=== PATIENT | male | born 1940 | race Caucasian/White ===

== ENCOUNTER 2022-11-29 12:12 | Outpatient (CLI) | payer MEDICARE, OTHER, SELFPAY | END 2022-11-29 12:13 | disposition home or self-care (01) | LOC: AMB 11-30 02:10 | PROVIDERS: Visit Provider Family Medicine | DX: R53.1 Weakness (principal); R41.82 Altered mental status, unspecified | CPT/HCPCS: A0425; A0427 ==

== ENCOUNTER 2024-04-25 10:39 | Outpatient (CLI) | payer MEDICARE, OTHER, SELFPAY ==
--- OUTSIDE RECORDS SUMMARY | 2024-05-10 22:40 | XMS_ITS | Clinical Summary ---
Author Organization [employer] [facility] Address [place], [place] [address] Care Team Providers Care Size Marker Name Role Phone None Primary Care Provider Unavailabl e Allergies Active Allergy Reactions Criticality Noted Date Comments Sulfamethoxazole-Trimethop rim *Unknown - Follow up needed 09/26/2007 Medications Medication Sig Dispensed Refills Start Date End Date Status warfarin (COUMADIN) 4 mg tablet 6 mg ( 4 mg x 1.5 tabs) every Sunday, Sun, Sun then 4 mg ( 4 mg x 1 tab ) all other days of the weekAdjust as directed by INR clinic. 12/11/2023 Active traMADoL (ULTRAM) 50 mg tablet 01/21/2024 Active tamsulosin (FLOMAX) 0.4 mg capsule Take 2 Capsules by mouth once daily. 12/18/2022 Active pregabalin (LYRICA) 25 mg capsule Take 25 mg by mouth two times daily. 04/09/2023 Active pregabalin (LYRICA) 100 mg capsule Take 100 mg by mouth two times daily. 05/16/2023 Active pantoprazole (PROTONIX) 40 mg delayed-release tablet Take 1 Tablet by mouth once daily. 01/17/2024 Active losartan (COZAAR) 25 mg tablet Take 25 mg by mouth once daily. Active furosemide (LASIX) 20 mg tablet TAKE 1 TABLET BY MOUTH ONCE DAILY NEEDED FOR LEG SWELLING. Active dilTIAZem (DILACOR XR; DILTIA XT) 120 mg Extended-Release capsule Take 1 Capsule by mouth once daily. 04/09/2023 Active citalopram (CELEXA) 20 mg tablet TAKE 1/2 (ONE-HALF) TABLET BY MOUTH THREE TIMES A WEEK 12/11/2023 Active buPROPion (WELLBUTRIN XL) 150 mg Extended-Release tablet 1 tab every am 01/22/2024 Active atorvastatin (LIPITOR) 80 mg tablet Take 80 mg by mouth once daily. Active Social History Tobacco Use Types Packs/Day Years Used Date Smoking Tobacco: Former Cigarettes 1 58 1 958 - 2016 Passive Smoke Exposure: Never Smokeless Tobacco: Never Tobacco Cessation:Counseling Given: Not Answered PHQ-2 Answer Date Recorded PHQ-2 TOTAL SCORE 0 01/31/2024 Social Connections Answer Date Recorded Frequency of Communication with Friends and Fami ly Not on file 01/31/2024 Sex and Gender Information Value Date Recorded Sex Assigned at Not on file Gender Identity Not on file Sexual Orientation Not on file Obstetrics History Last Filed Vital Signs Vital Sign Reading Time Taken Comments Blood Pressure 144/80 01/31/2024 10:18 AM CDT Pulse 84 01/31/2024 10:18 AM CDT Temperature - - Respiratory Rate - - Oxygen Saturation - - Inhaled Oxygen Concentration - - Weight - - Height 188 cm (6' 2) 01/31/2024 10:18 AM CDT Body Mass Index - - Plan of Treatment Health Maintenance Due Date Last Done Comments Tdap 1952 BMI (ht and wt on same day) for age 18+ 1959 Tetanus booster 1961 Zoster (shingles) series for age 50+ (1 of 2) 1991 Medicare Wellness for age 65+ 2006 Pneumococcal series for age 65+ (1 of 1 - PCV) 2006 COVID-19 vaccine series (3 - 2022- season) 2023 01/26/2021, 01/05/2021 Influenza for age 65+ 07/20/2024 Depression screening for age 12+ 01/30/2025 01/31/20 24 Care Teams Size Marker Relationship Specialty Start Date End Date None . PCP - General 12/24/08
--- OUTSIDE RECORDS SUMMARY | 2024-05-10 22:41 | XMS_ITS | Continuity of Care Document ---
Author Organization [facility] Address [address] [address] [place] [address] Phone Care Team Providers Care Office Director Name Role Phone Camryn Licea Unavailabl e Procedures Procedure Date Subsqt Hosp-da E&m Minr Compl 1 Ugi Endo; W/endo Ultrasound Ex 21 Init Hosp-da E&m Mod Severity 1 Subsqt Hosp-da E&m Minr Compl 1 Subsqt Hosp-da E&m Minr Compl 2 Init Hosp-da E&m Mod Severity 2 Ugi Endo; Dx W/wo Collec Specm 12 Advance Directives Directive Yes / No Effective Date File Name No Information Encounters Encounter Description Practice Location Reason(s) For Visit Diagnoses Date Provider Providers Copied on Encounter Subsqt Hosp-da E&m Minr Compl [facility], [address] [address], [place], [place], [address], [place] tel:[phone] [facility] No Information 1 Princess Cowan. [address] [facility] [address], [place], [place], [address], [place]. tel:[phone] Referring Provider: Camryn Ha, [address], [place], [address] . tel:[phone] [facility], [address] [address], [place], [place], [address], [place] tel:[phone] [facility] No Information 1 Giovana Villalta. [address], [place], [place], [address], [place]. tel:[phone] Referring Provider: Pawan Akhtar MD, [address], [place], [address] . tel:[phone] Init Hosp-da E&m Mod Severity [facility], [address] [address], [place], [place], [address], [place] tel:[phone] [facility] No Information 1 Dakota Jett. [address], [facility] [address], [place], [place], [address], [place]. tel:[phone] Referring Provider: Zach Cruz MD, [address] [facility] [address] Internal Medicine, [place], [address]. tel:[phone] Subsqt Hosp-da E&m Minr Compl [facility], [address] [address], [place], [place], [address], [place] tel:[phone] [place] [address] No Information 2 No Information Init Hosp-da E&m Mod Severity [facility], [address] [address], [place], [place], [address], [place] tel:[phone] [facility] No Information 2 Edward De La O. [address], [facility] [address], [place], [place], [address], [place]. tel:[phone] Referring Provider: Tomas Khan MD R, [address] [place] [address], [address]. tel:[phone] Family History Family Member Type Diagnosis Age At Onset No Information Payers Payer name Insurance type Covered constitution party ID Authordamian johnson(s) Medicare NGS MB [id number] [facility] I nsurance Com CI [id number] Social History Type Description Quantity Date Captured Comments Sex Male Smoking Status No Information Chief Complaint And Reason For Visit No Information Reason For Referral Reason For Referral No Information History Of Present Illness Encounter Date Complaint History Of Prese nt Illness No Information Functional Status Date Functional Assessmen t No Information Instructions Date Instruction Additional Infor mation No Information Assessments Type Assessment Date No Information Patient Care Teams Name Effective Dates (start - stop) Status Members No Information
--- OUTSIDE RECORDS SUMMARY | 2024-05-10 22:41 | XMS_ITS | Continuity of Care Document ---
Author Organization [facility] Address [address] [place] [address] Phone Care Team Providers Care Flow Floor Attendant Name Role Phone Stacey MELTON, Yareli Unavailable Unavailable Allergies, Adverse Reactions, Alerts Substance Reaction Status Criticality No Known Allergies Active No Inform ation Medications Medication Instructions Dosage Effective Dates (start - stop) Status Comments tramadol 50 mg tablet take 1 tablet by oral route 4 times every day as needed 1 tablet - Active chronic pain. dose increase warfarin 4 mg tablet take 1 tablet by oral route every day 4 MG - Active tamsulosin 0.4 mg capsule take 2 capsule by oral route every day 1/2 hour following the same meal each day 0.8 MG - Active pantoprazole 40 mg tablet,delayed release take 2 tablet by oral route every day 80 MG - Active naproxen sodium 220 mg tablet take 2 tablet by oral route every 12 hours as needed 440 MG - Active melatonin 10 mg capsule - Active losartan 25 mg tablet take 1 tablet by oral route every day 25 MG - Active furosemide 20 mg tablet take 1 tablet by oral route 2 times every day 20 MG - Active ferrous sulfate 325 mg (65 mg iron) tablet take 1 tablet by oral route every day 325 MG - Active docusate sodium 100 mg capsule take 1 capsule by oral route 2 times every day as needed 100 MG - Active diltiazem ER (XR/XT) 120 mg capsule,extended release 24 hr, controlled take 1 capsule by oral route every day 120 MG - Active cilostazol 100 mg tablet take 1 tablet by oral route 2 times every day 1/2 hour before or 2 hours after breakfast and dinner 100 MG - Active bupropion HCl XL 150 mg 24 hr tablet, extended release take 1 tablet by oral route every day 150 MG - Active baclofen 10 mg tablet take 1 tablet by oral route every day 10 MG - Active Procedures Procedure Date PHONE E/M PHYS/QHP 21-30 MIN Est Pt Eval Telehealth No Show Visit Fee PHONE E/M PHYS/QHP 21-30 MIN Est Pt Eval Est Pt Eval Moderate No Show Visit Fee Psychiatric Diagnostic Evaluation Teleph one Only New Pt Eval Moderate Toxicology Test Group B Advance Directives Directive Yes / No Effective Date File Name No Information Encounters Encounter Description Practice Location Reason(s) For Visit Diagnoses Date Provider Providers Copied on Encounter [facility], [address], [place], [address], [place] tel:[phone] [facility] No Information 4 Stacey Downs. [address], [place], [address], [place]. tel:[phone] PHONE E/M PHYS/QHP 21-30 MIN Eliazar [facility], [address], [place], [place], [address], [place] tel:[phone] [facility] 7390 foot pain (chief complaint) Chief Complaint 2 (chief complaint) Body mass index (BMI) 28.0-28.9, adultPain in left footHemiparesis following cerebral infarction affecting left non-dominant side 4 Colt Wadsworth. [address], [address], [place], [address], [place]. tel:[phone] Referring Provider: Rickey Ardon, [address], [place], [address] . tel:[phone] Est Pt Eval Telehealth EliazarANA LAURA zambrano, [address], [place], [place], [address], [place] tel:[phone] Ifeoma Perea [facility] 7390 foot pain (chief complaint) Pain in left footHemiparesis following cerebral infarction affecting left non-dominant side 4 Colt Wadsworth. [address], [address], [place], [address], [place]. tel:[phone] Referring Provider: iRckey Ardon, [address], [place], [address] . tel:[phone] ANA LAURA Perea, [address], [place], [place], [address], [place] tel:[phone] [facility] No Information 4 Melum Violette. [address], [address], [place], [address], [place]. tel:[phone] Referring Provider: REFERRAL YADI OCHOA. PHONE E/M PHYS/QHP 21-30 MIN ANA LAURA Perea, [address], [place], [place], [address], [place] tel:[phone] [facility] left foot pain (chief complaint) Hemiparesis following cerebral infarction affecting left non-dominant sidePain in left footBody mass index (BMI) 28.0-28.9, adult Apr-3 4 Melum Violette. [address], [address], [place], [address], [place]. tel:[phone] Referring Provider: Rickey Ardon, [address], [place], [address] . tel:[phone] Est Pt Eval Eliazar [facility], [address], [place], [place], [address], [place] tel:[phone] [facility] left foot pain (chief complaint) Hemiparesis following cerebral infarction affecting left non-dominant sidePain in left footBody mass index (BMI) 28.0-28.9, adult Feb- 4 Marck Oakes. [address], [address], [place], [address], [place]. tel:[phone] Referring Provider: Rickey Ardon, [address], [place], [address] . tel:[phone] Est Pt Eval Moderate Eliazar, [facility], [address], [place], [place], [address], [place] tel:[phone] [facility] left foot pain (chief complaint) Elevated blood-pressure reading, w/o diagnosis of htnPain in left footHemiparesis following cerebral infarction affecting left non-dominant side Fe 4 Ileana Monroe. [address], [place], [address], [place]. tel:[phone] Referring Provider: Rickey Ardon, [address], [place], [address] . tel:[phone] ANA LAURA Perea, [address], [place], [place], [address], [place] tel:[phone] [facility] No Information 4 Tay Finley. [address], [place], [address], [place]. tel:[phone] Referring Provider: REFERRAL SELF, [place]. Psychiatric Diagnostic Evaluation Telephone Only MUNDO Perea, [address], [place], [place], [address], [place] tel:[phone] [facility] Pain disorder with related psychological factors 4 Pan Rincon. [address], [place], [place], [address], [place]. tel:[phone] Referring Provider: Rickey Ardon, [address], [facility] [place], [address] . tel:[phone] New Pt Eval Moderate Eliazar, [facility], [address], [place], [place], [address], [place] tel:[phone] [facility] foot pain (chief complaint) Pain in left footHemiparesis following cerebral infarction affecting left non-dominant side 4 [place] Yareli. [address], [place], [address], [place]. tel:[phone] Referring Provider: Rickey Ardon, [address], [place], [address] . tel:[phone] Eliazar, [facility], [address], [place], [place], [address], [place] tel:[phone] Eliazar [facility] No Information 4 [place] Yareli. [address], [place], [address], [place]. tel:[phone] Referring Provider: Rickey Ardon, [address], [place], [address] . tel:[phone] Family History Family Member Type Diagnosis Age At Onset No Information Payers Payer name Insurance type Covered green party ID Authoriza titaina(s) No Information Social History Type Description Quantity Date Captured Comments Alcohol Use Details Unknown Caffeine Use Details Unknown Tobacco Use Status No Information Smoking Status No Information Sex Male Chief Complaint And Reason For Visit No Information Reason For Referral Reason For Referral No Information Plan Of Treatment Date Type Action Status Goal Lifestyle educat ion regarding diet completed Referral Ordered: Referrals: Orthopedic Surgery. Location: [facility]. Consult ordered Referral Ordered: Behavioral Health (related to Pain in left foot) ordered Referral Referred To: Physical Therapy Ordered: Referrals: Physical Therapy. Consult ordered Referral Ordered: Referrals: Behavioral Health. Consult ordered Appointment Raffy Montgomery BOOKED Future Order: Radiology Order [facility] Image Order (Misc), Ordered on: Ordered History Of Present Illness Encounter Date Complaint History Of Prese nt Illness foot pain The primary pain involves the foot. The pain has been stable . Chief Complaint 2 The pain is lo cated in the back, stomach. The pain has been worsening . The following activities make the pain worse: lying down and sitting. Additional information: Patient Had a fall night and went to [facility] by ambulance. They did head, back and stomach CT scans. Also got back, stomach, and pelvic X-rays done that all came back clear. foot pain The pain is loca dmitri in the left foot. Pain intensity is currently 0/10.The pain is described as sharp. The following activities make the pain worse: walking. The following activities make the pain better: sitting. left foot pain Severity level i s 6. Location: left foot. The pain is aching, sharp and numbness. The pain is aggravated by walking and standing. There are no relieving factors. left foot pain (comments) Commen ts: Patient reports he's scheduled to get a stress test done tomorrow 03/19/24 with his web solutions architect at [facility]. Studies Reviewed X-RAY - Foot pe rformed on 02/25/2024. Interpretation: see detail, Result: Mild irregularity and lucency involving the distal fifth metatarsal questionable for underlying fracture Recommend close clinical correlation and consider follow-up with CT or MRI for further evaluation. Small plantar calcaneal bone spur. left foot pain Location: left f oot. The pain is aching, sharp, tingling and numbness. The pain is aggravated by walking and standing. left foot pain Location: left f oot. The pain is aching, burning, sharp and shooting. The pain is aggravated by movement, walking and standing. The pain is relieved by nothing. foot pain (comments) Comments: Norma sana reports previously receiving care from [facility]. Requested medical records from [facility]. 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 The pain reportedly began shortly after his stroke. Patient's son reports he got his father various devices for pain relief, but denies it providing relief. Patient's reports that the patient got some injection in his back at [facility] without pain relief. They do not recall any details about the injection.Patient's reports the pain started following his stroke. Patient indicated the pain is in his left ankle and foot. His reported that rubbing the side of his foot aggravates the pain. The patient's son reports his foot will swell. Patient's reports that when the patient walks he will drag his medial big toe along the floor. Patient reports tingling and burning in his left foot. Studies Reviewed MRI, lumbar spi ne, w/o contrast performed on 12/29/2022. Result: Suboptimal but diagnostic MRI of the lumbar spine with motion artifact on axial images and significant findings as follows:1 Moderately severe bilateral foraminal stenosis at L5-S1 with 4-5 mm lateral disc protrusions and left greater than right far lateral L5 neural impingement.2. 4-5 mm degenerative spondylolisthesis at L4-5 with moderate bilateral facet arthropathy and no stenosis or impingement.3. Diffuse lumbar disc degeneration with mild retrolisthesis at L2-3 and L1-2.4. Old benign-appearing compression fractures at L2 and L1. Question osteoporosis.5. Heterogeneous increased signal intensity within the spleen consistent with diffuse granulomatous disease. Splenic lymphangioma is also a consideration. foot pain Location: left f oot. The pain is aggravated by movement, walking and standing. The pain is relieved by OTC medicines (naproxen sodium) and rest. Functional Status Date Functional Assessmen t No Information Instructions Date Instruction Additional Infor catherine - Follow up with jeffrey hernandez physician for INR check Related to Hemiparesis following cerebral infarction affecting left non-dominant side - Nice to talk with you today!- Keep lumbar sympathetic nerve block as scheduled 05/12/24*Can call [phone] to check for cancellations and try to get an earlier appointment*Hold warfarin for 5 days prior to procedure and bridge with lovenox (talk to web solutions architect or primary care doctor about this once the injection is scheduled.) *Consider repeating in a series of 3 - Consider spinal cord stimulator trial in the future*Find more information at [employer] - Stop tramadol- Prescribed Hydrocodone 5mg-325, max of 4x/day for 7 days- Follow up with Violette WADDELL in 1 month, in CLINIC Related to Pain in left foot Lifestyle education regarding di et Related to Body mass index [BMI] 28.0-28.9, adult - Follow up with jeffrey hernandez physician for INR check Related to Hemiparesis following cerebral infarction affecting left non-dominant side - Nice to talk with you today!- Keep lumbar sympathetic nerve block as scheduled 05/12/24*Can call [phone] to check for cancellations and try to get an earlier appointment*Hold warfarin for 5 days prior to procedure and bridge with lovenox (talk to web solutions architect or primary care doctor about this once the injection is scheduled.) *Consider repeating in a series of 3 - Consider spinal cord stimulator trial in the future*Find more information at [employer] - Refill and increase Tramadol 50mg 4x/day, for fill today 04/24/24- Follow up with Violette WADDELL in 1 month, in CLINIC Related to Pain in left foot - Follow up with jeffrey hernandez physician for INR check Related to Hemiparesis following cerebral infarction affecting left non-dominant side - Nice to talk with you today!- Sent referral to [facility] in [place]*They will call to schedule, if you don't hear back in a few days call [phone]- Ordered MRI of left foot at [facility] will call to schedule, if you don't hear back in a few days call [phone]- Keep lumbar sympathetic nerve block as scheduled 04/09*Can call [phone] to check for cancellations and try to get an earlier appointment*Hold warfarin for 5 days prior to procedure and bridge with lovenox (talk to web solutions architect or primary care doctor about this once the injection is scheduled.) *Consider repeating in a series of 3 - Consider spinal cord stimulator trial in the future*Find more information at [employer] - Refill and increase Tramadol 50mg 4x/day, for fill tomorrow 03/19- Follow up with Mee Bates for medical cannabis certification, telehealth okay - Follow up with Violette WADDELL in 1 month, in CLINIC 04/09 before your nerve block Related to Pain in left foot Giving encouragement to exercise Related to Body mass index [BMI] 28.0-28.9, adult - Follow up with jeffrey hernandez physician for INR check Related to Hemiparesis following cerebral infarction affecting left non-dominant side - Nice to meet you! I'm sorry you're in so much pain.- Ordered lumbar sympathetic nerve block *Eliazar will call to schedule once insurance approves, if you don't hear back in a few days call [phone] *Hold warfarin for 5 days prior to procedure and bridge with lovenox (talk to web solutions architect or primary care doctor about this once the injection is scheduled.) *Consider repeating a series of 3 - Consider spinal cord stimulator trial in the future*Find more information at [employer] - Refill and increase Tramadol 50mg 3x/day, for fill today 02/18- Follow up with Mee Bates for medical cannabis certification, telehealth okay - Follow up with advanced practice provider in 1 month, telehealth okay Related to Pain in left foot Giving encouragement to exercise Related to Body mass index [BMI] 28.0-28.9, adult Follow up with miguel angel bocanegra physician for INR check Related to Hemiparesis following cerebral infarction affecting left non-dominant side Medications: -Refill ed and increased Butrans patch 10mcg for fill 12/26/23 to start 12/28/23 -Follow up with pharmacist at marijuana store for medical marijuana formula option -Keep prescribed Tramadol in a safe place- Consider lumbar sympathetic nerve block if patient able to bridge with lovenox injection for 5 daysFollow-up: -Follow up in 4 weeks with a [employer] or Nurse Practitioner Related to Pain in left foot Giving encouragement to exercise Related to Elevated blood-pressure reading, w/o diagnosis of htn Physical Therapy/[facility]/Other Referring: -Physical therapy to be ordered apart of opioid agreement -Behavioral Health to be ordered apart of opioid agreementMedications: -Butrans patch 5mcgFollow-up: -Follow up in 4-6 weeks with a [employer] or Nurse Practitioner -X[employer]IA requested from [email or web address]. Related to Pain in left foot Assessments Type Assessment Date No Information Patient Care Teams Name Effective Dates (start - stop) Status Members No Information
--- OUTSIDE RECORDS SUMMARY | 2024-05-10 22:41 | XMS_ITS | Encounter Summary ---
Author Organization [facility] Address [address] [place] [address]. [place] [address] Care Team Providers Care Application Engineer Name Role Phone [facility] Unavailable [phone] Jairon Sofia MD Unavailable [phone] Lesvia Aguilar RN Unavailable Unavailable ElistMandi love MD Unavailable [phone] Mandi Mar MD Primary Care Provider [phone] Neela Baum MD Unavailable [phone] Mariza Green NP Unavailable [phone] Gael Sullivan MD Unavailable [phone] Gael Sullivan MD Unavailable [phone] Reason for Visit * Reason Onset Date Comments Anticoagulation 05/08/2024 PT SPOUSE IS BLESSING LING BACK, MISSED CALL WITH INR NURSE Encounter Details Date Type Department Care Team (Late st Contact Info) Description 05/08/2024 [facility] [address] [place] [address] [place] [address] [place] [address] Anticoagulation (PT SPOUSE IS CALLING BACK, MISSED CALL WITH INR NURSE) Social History Tobacco Use Types Packs/Day Years Used Date Smoking Tobacco: Former Cigarettes 0.2 35 Smokeless Tobacco: Never Comments:quit in may 2017 Alcohol Use Standard Drinks/Week Comments Yes 1.7 (1 standard drink = 0.6 oz p ure alcohol) 2 drinks at night bindu PHQ-2 Answer Date Recorded PHQ-2 Score 0 09/10/2023 Adolescent Education Answer Date Record ed Getting School Help Needed Not on file 08/16 Food Insecurity Answer Date Recorded Within the past 12 months, d id you worry that your food would run out before you got money to buy more? No 08/20/2023 Within the past 12 months, d id the food you bought just not last and you didn? t have money to get more? No 08/20/2023 Housing Stability Answer Date Recorded Do you have housing? (Ivonne g is defined as stable permanent housing and does not include staying ouside in a car, in a tent, in an abandoned building, in an overnight halfway, or couch-surfing.) Yes 08/20/2023 Are you worried about losing your housing? No 08/20/2023 Financial Resource Strain Answer Date R ecorded Within the past 12 months, h ave you or your family members you live with been unable to get utilities (heat, electricity) when it was really needed? No 08/20/2023 Transportation Needs Answer Date Record ed Within the past 12 months, h as lack of transportation kept you from medical appointments, getting your medicines, non-medical meetings or appointments, work, or from getting things that you need? No 08/20/2023 Interpersonal Safety Answer Date Record ed Do you feel physically and e motionally safe where you currently live? Yes 09/10/2023 Within the past 12 months, h ave you been hit, slapped, kicked or otherwise physically hurt by someone? No 09/10/2023 Within the past 12 months, h ave you been humiliated or emotionally abused in other ways by your partner or ex-partner? No 09/10/2023 Sex and Gender Information Value Date Recorded Sex Assigned at Not on file Gender Identity Not on file Sexual Orientation Not on file documented as of this encounter Miscellaneous Notes * Telephone Encounter - Kaur Jean-Baptiste RN - 05/08/2024 12:33 PM CDT Noted. See 04/08/24 TE and 05/06/24 anticoagulation encounter for further detail. Kaur Jean-Baptiste RN [facility]. * Telephone Encounter - Magali Wang - 05/08/2024 11:02 AM CDT General Call Reason for Call: PT SPOUSE IS RETURNING CALL TO INR NURSE What are your questions or concerns: SEE ABOVE Date of last appointment with provider: UNKNOWN Okay to leave a detailed message?: Yes at Home number on file [phone] (home) documented in this encounter Plan of Treatment Upcoming Encounters Date Type Department Care Team (Late st Contact Info) Description 06/09/2024 10:00 AM CDT Office Visit [address] [address] [place] [address] [place] [address] documented as of this encounter Visit Diagnoses Not on filedocumented in this encounter Additional Health Concerns Assessment Noted Time PHQ-9 Depression Total Score: 3 09/10/20 23 9:51 AM CDT documented as of this encounter Care Teams Application Engineer Relationship Specialty [place] [address] [place] [address] PCP - General Family Medicine 03/29/22 [facility] ([place] 05/29/19 Jairon Sofia MD [address] [place] [address] Urology 09/09/19 Lesvia Aguilar, RN Personal Advocate & Liaison (PAL) Family Medicine 06/20/21 [place] [address] [place] [address] Assigned PCP 01/01/22 [place] [address] [facility] [address] [place] [address] Assigned Musculoskeletal Provider 03/24/23 [place] [address] [place] [address] Nurse Practitioner Nurse Practitioner 04/09/23 [place] [address] [facility] [address] [place] [address] Cardiovascular Disease 12/21/23 Gael Sullivan MD [address] [facility] [address] [place] [address] Assigned Heart and Vascular Provider 03/11/24 documented as of this encounter
--- OUTSIDE RECORDS SUMMARY | 2024-05-10 22:41 | XMS_ITS | Referral Summary ---
Author Organization [facility] [place] [address] Care Team Providers Care Siebel Solution Architect Name Role Phone [facility] Unavailable Jairon Sofia MD Unavailable [phone] Lesvia Aguilar RN Unavailable Unavailable Mandi Mar MD Unavailable [phone] Mandi Mar MD Primary Care Provider [phone] Neela Baum MD Unavailable [phone] Mariza Green NP Unavailable [phone] Gael Sullivan MD Unavailable [phone] Gael Sullivan MD Unavailable [phone] Encounters Date Type Department Care Team Description 05/09/2024 Telephone [facility] [address] [place] [address] Mandi Mar MD Back Pain 05/08/2024 Telephone [facility] [address] [place] [address] Mandi Mar MD Anticoagulation (PT SPOUSE IS CALLING BACK, MISSED CALL WITH INR NURSE) 05/08/2024 Telephone [facility] [address] [place] [address] Mandi Mar MD Back Pain 05/06/2024 Telephone [facility] [address] [place] [address] Mandi Mar MD Anticoagulation 05/06/2024 Anticoagulation Therapy Visit [facility] Anticoagulation [address] [phone] Isa Osullivan RN Atrial fibrillation, unspecified type (H) (Primary Dx); 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 with INR goal of 2.0-3.0; 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), unspecified mechanism (H) 05/06/2024 Orders Only [facility] [address] [place] [phone] Mandi Mar MD 04/29/2024 Anticoagulation Therapy Visit [facility] [address] [place] [phone] José Miguel Ponce RN Atrial fibrillation, unspecified type (H) (Primary Dx); 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 with INR goal of 2.0-3.0; 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), unspecified mechanism (H) 04/29/2024 Documentation Only [facility] [address] [place] [phone] Karen Ferreira RN Anticoagulation 04/29/2024 Orders Only [facility] [address] [place] [phone] Mandi Mar MD 04/28/2024 Documentation Only [facility] [address] [place] [phone] Shawna Bunn RN Atrial fibrillation, unspecified type (H) (Primary Dx); residential current use of 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 with INR goal of 2.0-3.0; 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), unspecified mechanism (H) 04/28/2024 Telephone [facility] [address] [place] [phone] Mandi Mar MD Hospital F/U 04/27/2024 Travel 04/27/2024 5:17 PM CDT - 04/27/2024 7:49 PM CDT Emergency [facility] Emergency Dept [address] [place] [address] Ady Tomlinson MD Fall at home, initial encounter; Musculoskeletal pain; Closed compression fracture of body of L1 vertebra (H) Discharge Disposition: Home or Self Care 04/25/2024 Telephone [facility] [address] [place] [phone] Karen Ferreira RN Anticoagulation 04/25/2024 Travel 04/25/2024 11:18 AM CDT - 04/25/2024 2:00 PM CDT Emergency [facility] Emergency Dept [address] [place] [address] Adrian Phillips MD Fall, initial encounter; Contusion of right hip, initial encounter; Contusion of scalp, initial encounter Discharge Disposition: Hospice/Home 04/22/2024 Anticoagulation Therapy Visit [facility] [address] [place] [phone] Kaur Jean-Baptiste RN Atrial fibrillation, unspecified type (H) (Primary Dx); residential current use of 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 with INR goal of 2.0-3.0; 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), unspecified mechanism (H) 04/22/2024 Orders Only [facility] [address] [place] [phone] Mandi Mar MD 04/11/2024 Refill [facility] [address] [place] [phone] Mandi Mar MD Refill Request (atorvastatin (LIPITOR) 80 MG tablet) 04/08/2024 Refill [facility] [address] [phone] Mandi Mar MD Refill Request (baclofen (LIORESAL) 10 MG tablet) 04/08/2024 Telephone [facility] [address] [place] [phone] José Miguel Ponce RN Anticoagulation Procedure Plan 04/08/2024 Anticoagulation Therapy Visit [facility] [address] [phone] José Miguel Ponce RN Atrial fibrillation, unspecified type (H) (Primary Dx); residential current use of 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 with INR goal of 2.0-3.0; 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), unspecified mechanism (H) 04/08/2024 Orders Only [facility] [address] [phone] Mandi Mar MD 03/30/2024 Travel 03/30/2024 3:57 PM CDT - 03/30/2024 11:59 PM CDT Hospital Encounter [facility] [address] [place] [phone] Violette Acharya PA-C Pain in left foot Discharge Disposition: Home or Self Care 03/27/2024 Travel 03/27/2024 9:35 AM CDT - 03/27/2024 10:22 AM CDT Hospital Encounter [facility] [address] [place] [phone] Gael Sullivan MD Palpitations; S/P CABG (coronary artery bypass graft); COATS (dyspnea on exertion); PAD (peripheral artery disease) (H24) Discharge Disposition: Home or Self Care 03/27/2024 10:23 AM CDT - 03/27/2024 11:59 PM CDT Hospital Encounter [address] [phone] Gael Sullivan MD S/P CABG (coronary artery bypass graft); COATS (dyspnea on exertion) Discharge Disposition: Home or Self Care 03/19/2024 Travel 03/19/2024 10:32 AM CDT Hospital Encounter [facility] [address] [place] [phone] Gael Sullivan MD Discharge Disposition: Home or Self Care 03/19/2024 10:33 AM CDT - 03/19/2024 11:59 PM CDT Hospital Encounter [facility] [address] [place] [address] Gael Sullivan MD Discharge Disposition: Home or Self Care 03/19/2024 10:32 AM CDT Hospital Encounter [facility] [address] [place] [address] Gael Sullivan MD Discharge Disposition: Home or Self Care 03/19/2024 10:30 AM CDT - 03/19/2024 10:31 AM CDT Hospital Encounter [facility] [address] [place] [phone] Gael Sullivan MD S/P CABG (coronary artery bypass graft); COATS (dyspnea on exertion) Discharge Disposition: Home or Self Care 03/18/2024 Anticoagulation Therapy Visit [facility] [address] [place] [phone] Chary Camp RN Atrial fibrillation, unspecified type (H) (Primary Dx); 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 with INR goal of 2.0-3.0; 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), unspecified mechanism (H) 03/18/2024 Orders Only [facility] [address] [place] [phone] Mandi Mar MD 03/10/2024 Telephone [facility] [address] [place] [phone] Gael Sullivan MD Appointment (Annual ) 03/06/2024 Travel 03/06/2024 1:15 PM CDT Office Visit [facility] [address] [facility] [address] [place] [phone] Gael Sullivan MD Palpitations (Primary Dx); S/P CABG (coronary artery bypass graft); COATS (dyspnea on exertion); PAD (peripheral artery disease) (H24) 02/26/2024 Anticoagulation Therapy Visit [facility] [address] [place] [phone] Kaur Jean-Baptiste RN Atrial fibrillation, unspecified type (H) (Primary Dx); residential current use of 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 with INR goal of 2.0-3.0; 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), unspecified mechanism (H) 02/26/2024 Orders Only [facility] [address] [place] [phone] Mandi Mar MD from Last 3 Months Allergies Active Allergy Reactions Criticality Noted Date Comments Bactrim Unknown 09/26/2007 Medications Medication Sig Dispensed Refills Start Date End Date Status Thiamine HCl (VITAMIN B-1) 250 MG TABSIndications:Cer ebrovascular accident (CVA), unspecified mechanism (H) Take 1 each by mouth daily 30 tablet 7 Active Multiple Vitamins-Minerals (MULTIVITAMIN ADULT PO) Take 1 tablet by mouth daily Active order for DMEIndications:Lymp hedema 1: Gradient Compression Wraps; 2: cast Boots; 3; BLE 20-30 mm Hg compression stockings; knee high; 4: Velcro compression garments BLE's 1 each 9 Active Melatonin 10 MG TABS tablet Take 10 mg by mouth At Bedtime Active tamsulosin (FLOMAX) 0.4 MG capsuleIndications: Enlarged prostate Take 1 capsule by mouth once daily 90 capsule 2 3 Active diltiazem ER COATED BEADS (CARDIZEM CD/CARTIA XT) 120 MG 24 hr capsuleIndications: Atrial fibrillation, unspecified type (H) Take 1 capsule (120 mg) by mouth daily 90 capsule 3 3 Active docusate sodium (COLACE) 100 MG capsuleIndications: Anemia, unspecified type Take 1 capsule (100 mg) by mouth 2 times daily 180 capsule 3 3 Active ferrous sulfate (FEROSUL) 325 (65 Fe) MG tabletIndications:I ang[place] deficiency Take 1 tablet (325 mg) by mouth daily (with breakfast) 90 tablet 3 Active furosemide (LASIX) 20 MG tabletIndications:E ssential hypertension Take 1 tablet (20 mg) by mouth daily TAKE 1 TABLET BY MOUTH ONCE DAILY NEEDED FOR LEG SWELLING 90 tablet 3 3 Active losartan (COZAAR) 25 MG tabletIndications:E ssential hypertension Take 1 tablet (25 mg) by mouth daily 90 tablet 3 3 Active pregabalin (LYRICA) 50 MG capsuleIndications: Mononeuropathy Take 1 capsule (50 mg) by mouth 2 times daily 180 capsule 1 3 Active citalopram (CELEXA) 20 MG tabletIndications:M oderate major depression (H) TAKE 1/2 (ONE-HALF) TABLET BY MOUTH THREE TIMES A WEEK 18 tablet 1 4 Active warfarin ANTICOAGULANT (COUMADIN) 4 MG tabletIndications:A trial fibrillation, unspecified type (H) 6 mg ( 4 mg x 1.5 tabs) every Sunday, Sun, Sun then 4 mg ( 4 mg x 1 tab ) all other days of the weekAdjust as directed by INR clinic. 122 tablet 1 4 Active pantoprazole (PROTONIX) 40 MG EC tabletIndications:G astrointestinal hemorrhage associated with gastric ulcer Take 1 tablet (40 mg) by mouth daily 90 tablet 1 4 Active buPROPion (WELLBUTRIN XL) 150 MG 24 hr tabletIndications:M oderate major depression (H) 1 tab every am 90 tablet 1 4 Active cilostazol (PLETAL) 100 MG tabletIndications:C erebrovascular accident (CVA), unspecified mechanism (H) Take 1 tablet (100 mg) by mouth 2 times daily 180 tablet 3 4 Active baclofen (LIORESAL) 10 MG tabletIndications:C erebrovascular accident (CVA), unspecified mechanism (H) TAKE 1/2 (ONE-HALF) TABLET BY MOUTH AT BEDTIME *DO NOT STOP ABRUPTLY DUE TO RISK OF WITHDRAWL* 45 tablet 3 4 Active atorvastatin (LIPITOR) 80 MG tabletIndications:C erebrovascular accident (CVA), unspecified mechanism (H) Take 1 tablet (80 mg) by mouth daily 90 tablet 1 4 Active enoxaparin ANTICOAGULANT (LOVENOX) 100 MG/ML syringeIndications: 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 with INR goal of 2.0-3.0,Cerebrovasc ular accident (CVA), unspecified mechanism (H),Atrial fibrillation, unspecified type (H) Inject 1 mL (100 mg) Subcutaneous every 12 hours 28 mL 1 4 Active baclofen (LIORESAL) 10 MG tabletIndications:C erebrovascular accident (CVA), unspecified mechanism (H) TAKE 1/2 (ONE-HALF) TABLET BY MOUTH AT BEDTIME *DO NOT STOP ABRUPTLY DUE TO RISK OF WITHDRAWL* 45 tablet 3 3 04/15/20 24 Discontinu ed(Reorder (No AVS)) atorvastatin (LIPITOR) 80 MG tabletIndications:C erebrovascular accident (CVA), unspecified mechanism (H) Take 1 tablet (80 mg) by mouth daily 90 tablet 3 3 04/16/20 24 Discontinu ed(Reorder (No AVS)) Active Problems Problem Noted Date Diagnosed Date 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), unspecified mech anism 04/26/2023 Left-sided weakness 11/29/2022 Iron deficiency 11/29/2022 Edema 11/29/2022 Gastroesophageal reflux disease without esophagi tis 11/29/2022 BPH (benign prostatic hyperplasia) 11/29/2022 Mononeuropathy 10/06/2022 Abdominal aortic aneurysm (AAA) without rupture (H24) 07/18/2021 Overview: Added automatically from request for surgery [id number] Choledocholithiasis 05/30/2021 RUQ abdominal pain 05/30/2021 residential current use of ant icoagulants with INR goal of 2.0-3.0 07/08/2020 Atrial fibrillation, unspecified type 07/08/2020 CKD (chronic kidney disease) stage 3, GFR 30-59 ml/min 10/20/2019 Status post coronary angiogram 10/02/2019 Peripheral artery insufficiency (H24) 08/27/2019 Overview: Added automatically from request for surgery [id number] 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 affecting unspecified side 05/14/2019 Essential hypertension 08/13/2018 Melena 04/04/2017 Physical deconditioning 07/25/2016 Gluteal pain 11/24/2015 Anxiety 11/24/2015 Moderate major depression 03/19/2012 Anemia 03/04/2012 Hyperlipidemia LDL goal <100 09/18/2010 PVD (peripheral vascular disease) (H24) 06/23/20 08 Family history of diabetes mellitus Personal history of tobacco use, presenting hazards to health CAD (coronary artery disease) Resolved Problems Problem Noted Date Diagnosed Date Resolved Date Cerebrovascular accident (CV A), unspecified mechanism 05/11/2022 10/06/2022 Acute respiratory failure with hypoxia 11/07/2021 08/08/2022 Transaminitis 05/30/2021 10/06/2022 Chronic obstructive pulmonar y disease, unspecified COPD type 05/14/2019 06/24/2020 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 ant icoagulant therapy 06/28/2017 10/06/2022 Atrial fibrillation (H) [I48.91] 06/28/2017 06/20/2021 CVA (cerebral vascular accident) 05/28/2017 09/10/2023 Tibial plateau fracture, lef t, closed, initial encounter 07/21/2016 10/06/2022 Left knee pain 07/19/2016 10/06/2022 Obesity 11/24/2015 10/06/2022 HTN, goal below 140/90 08/22/201108/13 Advanced directives, counseling/discussion 08/08/2011 05/05/2024 Overview: Advance Directive Problem List Overview: Name Relationship Phone Primary Health Care Agent Alternative Health Care Agent Discussed advance care planning with patient; information given to patient to review. 08/08/2011 CKD (chronic kidney disease) stage 3, GFR 30-59 ml/min 04/21/2011 02/22/2012 Mixed hyperlipidemia 03/19/2006 011 Hematuria 10/30/2003 08/06/2018 Overview: Problem list name updated by automated process. Provider to review and confirm Imo Update utility Transient cerebral ischemia 10/30/2003 08/06/2018 Overview: Problem list name updated by automated process. Provider to review Essential hypertension, benign 04/17/2012 Immunizations Name Administration Dates Next Due COVID-19 MONOVALENT 12+ (Pfizer) 01/26/2021,12/20 Pneumo Conj 13-V (2010&after) 03/28/2017 Pneumococcal 23 valent 03/01/2010 TD,PF 7+ (Tenivac) 03/01/2010,01/28/1995 020 TDAP Vaccine (Adacel) 06/24/2020 Social History Tobacco Use Types Packs/Day Years [...] Answer Date Recorded Do you have housing? (Housin g is defined as stable permanent housing and does not include staying ouside in a car, in a tent, in an abandoned building, in an overnight snf, or couch-surfing.) Yes 08/20/2023 Are you worried [...] on file Sexual Orientation Not on file Last Filed Vital Signs Vital Sign Reading Time Taken Comments Blood Pressure 131/79 04/27/2024 4:43 PM CDT Pulse 102 04/27/2024 4:43 PM CDT Temperature 36.3 ??C (97.4 ??F) 04/27/2024 4:43 PM CD T Respiratory Rate 18 04/27/2024 4:43 PM CDT Oxygen Saturation 100% 04/27/2024 4:43 PM CDT Inhaled Oxygen Concentration - - Weight 95.3 kg (210 lb) 04/27/2024 4:43 PM CDT Height 188 cm (6' 2) 04/27/2024 4:43 PM CDT Body Mass Index 26.96 04/27/2024 4:43 PM CDT Plan of Treatment Upcoming Encounters Date Type Department Care Team (Late st Contact Info) Description 06/09/2024 10:00 AM CDT Office Visit [facility] [address] [place] [phone] [place] [address] [place], [place] [id number] Medical Devices Implanted Type Area Outreach Specialist Device Identifier Shelf Expiration Date Model / Serial / Lot Stent Graft Endurant Ii Contralateral Limb [id number] - [id number] Implanted:Qty: 1 on 08/31/2021 by Jak Cervantes MD at [facility] Graft Left: Abdomen [employer] 05/30/2023 [id number] / [id number] / Stent Graft Endurant Ii Contralateral Limb [id number] - [id number] Implanted:Qty: 1 on 08/31/2021 by Jak Cervantes MD at [facility] Graft Right: Abdomen [employer] 01/27/2023 [id number] / [id number] / Endurant Ii Implanted:Qty: 1 on 08/31/2021 by Jak Cervantes MD at [facility] Right: Abdomen [id number] 02/22/2023 [id number] / [id number] / Procedures Procedure Name Priority Date/Time Associated Diagnosis Comments INR (EXTERNAL RESULT) Routine 05/06/2024 12:00 AM CDT INR (EXTERNAL RESULT) Routine 04/29/2024 12:[address] CHEST/ABDOMEN/PELVIS W CONTRAST STAT 04/27/2024 6:48 PM CDT CBC WITH PLATELETS & DIFFERENTIAL STAT 04/27/2024 5:28 PM CDT EXTRA RED TOP TUBE STAT 04/27/2024 5: 28 PM CDT CBC WITH PLATELETS AND DIFFERENTIAL STAT 04/27/2024 5:28 PM CDT EXTRA TUBE STAT 04/27/2024 5:28 PM CDT INR STAT 04/27/2024 5:28 PM CDT COMPREHENSIVE METABOLIC PANEL STAT 04/27/2024 5:28 PM CDT XR PELVIS AND HIP RIGHT 1 VIEW STAT 04/25/2024 12:[address] HEAD W/O CONTRAST STAT 04/25/2024 12:19 PM CDT CBC WITH PLATELETS & DIFFERENTIAL STAT 04/25/2024 11:26 AM CDT EXTRA RED TOP TUBE STAT 04/25/2024 11 :26 AM CDT EXTRA BLUE TOP TUBE STAT 04/25/2024 1 1:26 AM CDT CBC WITH PLATELETS AND DIFFERENTIAL STAT 04/25/2024 11:26 AM CDT EXTRA TUBE STAT 04/25/2024 11:26 AM CDT INR STAT 04/25/2024 11:26 AM CDT BASIC METABOLIC PANEL STAT 04/25/2024 11:26 AM CDT INR (EXTERNAL RESULT) Routine 04/22/2024 12:00 AM CDT INR (EXTERNAL RESULT) Routine 04/08/2024 12:00 AM CDT MR FOOT LEFT W/O CONTRAST Routine 03/30/2024 4:59 PM CDT Pain in left foot ECHO COMPLETE Routine 03/27/2024 11:41 AM CDT S/P CABG (coronary artery bypass graft) COATS (dyspnea on exertion) US MISSAEL DOPPLER NO EXERCISE, 1-2 LEVELS,?? BILAT Routine 03/27/2024 10:29 AM CDT Palpitations S/P CABG (coronary artery bypass graft) COATS (dyspnea on exertion) PAD (peripheral artery disease) (H24) NM MPI WITH LEXISCAN Routine 03/19/2024 1:28 PM CDT S/P CABG (coronary artery bypass graft) COATS (dyspnea on exertion) INR (EXTERNAL RESULT) Routine 03/18/2024 12:00 AM CDT EKG 12-LEAD COMPLETE W/READ - CLINICS Routine 03/06/2024 Palpitations INR (EXTERNAL RESULT) Routine 02/26/2024 12:00 AM CDT ROUTINE UA WITH MICROSCOPIC REFLEX TO CULTURE STAT 11/29/2022 2:34 PM RETAIL PROJECT MERCHANDISER LIPID REFLEX TO DIRECT LDL PANEL STAT 08/31/2021 9:21 AM CDT ALBUMIN RANDOM URINE QUANTITATIVE Routine 03/28/2017 9:58 AM CDT Hemispheric carotid artery syndrome from Last 3 Months or Most Recently Relevant to Health Maintenance Results * INR (External Result) (05/06/2024 12:00 AM CDT) Only the most recent of6 resultswithin the time period is included. INR HOME MONITORING 2.2 2.000 - 3.000 [employer] 05/06/2024 Narrative [employer] - 05/06/2024 12:21 PM CDT Mandi Mar MD LAB - HIM EXTERNA L RESULT [employer] [address] [phone] * CT Chest/Abdomen/Pelvis w Contrast (04/27/2024 6:48 PM CDT) Anatomical Region Laterality Modality Abdomen/Pelvis, Chest, SUBRA D CT BODY, UMP CT CHEST, UMP CT ABDOMEN PELVIS, RAD CT Computed Tomography 04/27/2024 6:48 PM CDT Impressions 04/27/2024 7:14 PM CDT IMPRESSION: 1. ??Chronic appearing compression fracture deformity of the L1 vertebral body. No other fractures identified. 2. ??Cholelithiasis. 3. ??Numerous low-attenuation lesions within the spleen. These are nonspecific but can be seen after granulomatous disease. 4. ??Previous abdominal aortic aneurysm repair with endograft stent. The stent is patent. 5. ??Prostate gland enlargement. 6. ??Moderate elevation of the right hemidiaphragm with right basilar atelectasis. Scattered scarring of the lungs without pulmonary contusion or pleural fluid. 7. ??Evidence for prior granulomatous disease right lung. Narrative 04/27/2024 7:14 PM CDT EXAM: CT CHEST/ABDOMEN/PELVIS W CONTRAST LOCATION: [facility] DATE: 04/27/2024 INDICATION: Right sided torso pain and abdominal pain after falling 2 days ago on warfarin. COMPARISON: None. TECHNIQUE: CT scan of the chest, abdomen, and pelvis was performed following injection of IV contrast. Multiplanar reformats were obtained. Dose reduction techniques were used. CONTRAST: 100mL Isovue 370 FINDINGS: LUNGS AND PLEURA: Scattered scarring of the lungs without evidence for pulmonary contusion, consolidation or pleural fluid. Calcified granuloma right upper lobe. Moderate elevation right hemidiaphragm with right basilar atelectasis. MEDIASTINUM/AXILLAE: Normal. CORONARY ARTERY CALCIFICATION: Severe. HEPATOBILIARY: Small stones in the gallbladder without gallbladder wall thickening. The liver is unremarkable. No biliary ductal dilatation. PANCREAS: Normal. SPLEEN: Innumerable low-attenuation areas throughout the spleen. This can be noted after granulomatous disease. ADRENAL GLANDS: Normal. KIDNEYS/BLADDER: Bilateral renal vascular calcifications. Cortical cyst left kidney requires no specific follow-up. No hydronephrosis. The urinary bladder is grossly unremarkable. BOWEL: Normal. LYMPH NODES: No lymphadenopathy. VASCULATURE: Previous abdominal aortic aneurysm repair with endograft stent. The stent is patent. The secluded aneurysm sac measures approximately 3.8 cm. PELVIC ORGANS: Mild prostate gland enlargement. MUSCULOSKELETAL: Degenerative changes lumbar spine facet joints. Chronic appearing compression fracture of the L1 vertebral body. Median sternotomy. Procedure Note Deepak Schneider MD - 04/27/2024 EXAM: CT CHEST/ABDOMEN/PELVIS W CONTRAST LOCATION: [facility] DATE: 04/27/2024 INDICATION: Right sided torso pain and abdominal pain after falling 2 daysago on warfarin. COMPARISON: None. TECHNIQUE: CT scan of the chest, abdomen, and pelvis was performedfollowing injection of IV contrast. Multiplanar reformats were obtained.Dose reduction techniques were used. CONTRAST: 100mL Isovue 370 FINDINGS: LUNGS AND PLEURA: Scattered scarring of the lungs without evidence forpulmonary contusion, consolidation or pleural fluid. Calcified granulomaright upper lobe. Moderate elevation right hemidiaphragm with rightbasilar atelectasis. MEDIASTINUM/AXILLAE: Normal. CORONARY ARTERY CALCIFICATION: Severe. HEPATOBILIARY: Small stones in the gallbladder without gallbladder wallthickening. The liver is unremarkable. No biliary ductal dilatation. PANCREAS: Normal. SPLEEN: Innumerable low-attenuation areas throughout the spleen. This canbe noted after granulomatous disease. ADRENAL GLANDS: Normal. KIDNEYS/BLADDER: Bilateral renal vascular calcifications. Cortical cystleft kidney requires no specific follow-up. No hydronephrosis. The urinarybladder is grossly unremarkable. BOWEL: Normal. LYMPH NODES: No lymphadenopathy. VASCULATURE: Previous abdominal aortic aneurysm repair with endograftstent. The stent is patent. The secluded aneurysm sac measuresapproximately 3.8 cm. PELVIC ORGANS: Mild prostate gland enlargement. MUSCULOSKELETAL: Degenerative changes lumbar spine facet joints. Chronicappearing compression fracture of the L1 vertebral body. Mediansternotomy. IMPRESSION: 1. Chronic appearing compression fracture deformity of the L1 vertebralbody. No other fractures identified. 2. Cholelithiasis. 3. Numerous low-attenuation lesions within the spleen. These arenonspecific but can be seen after granulomatous disease. 4. Previous abdominal aortic aneurysm repair with endograft stent. Thestent is patent. 5. Prostate gland enlargement. 6. Moderate elevation of the right hemidiaphragm with right basilaratelectasis. Scattered scarring of the lungs without pulmonary contusionor pleural fluid. 7. Evidence for prior granulomatous disease right lung. Ady Tomlinson MD [facility] CT ORDERABLES * Extra Red Top Tube (04/27/2024 5:28 PM CDT) Only the most recent of2 resultswithin the time period is included. Pathologist [place] [facility] 04/27/2024 6:46 PM CDT LABORATORY Blood BLOOD SPECIMEN / Unknown Venipuncture / Unknown 04/27/2024 5:28 PM CDT 04/27/2024 5:33 PM CDT Ady Tomlinson MD LAB - BLOOD ORDERABL ES LABORATORY [facility] Lab [address] Lab (1st floor, no room number) [place] [address], [facility] * CBC with platelets and differential (04/27/2024 5:28 PM CDT) Only the most recent of2 resultswithin the time period is included. WBC Count 10.6 4.0 - 11.0 10e3/uL 04/27/2024 5:36 PM CDT [facility] LABORATORY RBC Count 4.95 4.40 - 5.90 10e6/uL 04/27/2024 5:36 PM CDT [facility] LABORATORY Hemoglobin 14.9 13.3 - 17.7 g/dL 04/27/2024 5:36 PM CDT [facility] LABORATORY Hematocrit 44.3 40.0 - 53.0 % 04/27/2024 5:36 PM CDT [facility] LABORATORY MCV 90 78 - 100 fL 04/27/2024 5:36 PM CDT [facility] LABORATORY MCH 30.1 26.5 - 33.0 pg 04/27/2024 5:36 PM CDT [facility] LABORATORY MCHC 33.6 31.5 - 36.5 g/dL 04/27/2024 5:36 PM CDT [facility] LABORATORY RDW 13.7 10.0 - 15.0 % 04/27/2024 5:36 PM CDT [facility] LABORATORY Platelet Count 213 150 - 450 10e3/uL 04/27/2024 5:36 PM CDT [facility] LABORATORY % Neutrophils 75 % 04/27/2024 5:36 PM CDT [facility] LABORAT[facility] % Lymphocytes 14 % 04/27/2024 5:36 PM CDT [facility] LAB[facility]AT[facility] % Monocytes 10 % 04/27/2024 5:36 PM CDT [facility] LAB[facility] % Eosinophils 1 % 04/27/2024 5:36 PM CDT [facility] LAB[facility]AT[facility] % Basophils 0 % 04/27/2024 5:36 PM CDT [facility] LABORATORY % Immature Granulocytes 0 % 04/27/2024 5:36 PM CDT [facility] LABORATORY NRBCs per 100 WBC 0 <1 /100 024 5:36 PM CDT [facility] LABORATORY Absolute Neutrophils 7.8 1.6 - 8.3 10e3/uL 04/27/2024 5:36 PM CDT [facility] LABORATORY Absolute Lymphocytes 1.5 0.8 - 5.3 10e3/uL 04/27/2024 5:36 PM CDT [facility] LABORATORY Absolute Monocytes 1.1 0.0 - 1.3 10e3/uL 04/27/2024 5:36 PM CDT [facility] LABORATORY Absolute Eosinophils 0.2 0.0 - 0.7 10e3/uL 04/27/2024 5:36 PM CDT [facility] LABORATORY Absolute Basophils 0.0 0.0 - 0.2 10e3/uL 04/27/2024 5:36 PM CDT [facility] LABORATORY Absolute Immature Granulocytes 0.0 <=0.4 10e3/uL 04/27/2024 5:36 PM CDT [facility] LABORATORY Absolute NRBCs 0.0 10e3/uL 04/27/2024 5:36 PM CDT [facility] LABORATORY Blood BLOOD SPECIMEN / Unknown Venipuncture / Unknown 04/27/2024 5:28 PM CDT 04/27/2024 5:33 PM CDT Ady Tomlinson MD LAB - BLOOD ORDERABL ES Performing Organization Address City/[facility]/ZIP Co de Phone Number [facility] Lab [address] Lab (1st floor, no room number) [address] [place] [address] * (ABNORMAL) INR (04/27/2024 5:28 PM CDT) Only the most recent of2 resultswithin the time period is included. INR 2.95(H) 0.85 - 1.15 04/27/2024 5:47 PM CDT [facility] LABORATORY Blood BLOOD SPECIMEN / Unknown Venipuncture / Unknown 04/27/2024 5:28 PM CDT 04/27/2024 5:33 PM CDT Ady Tomlinson MD LAB - BLOOD ORDERABL ES [facility] Lab [address] Lab (1st floor, no room number) [place] [phone] * (ABNORMAL) Comprehensive metabolic panel (04/27/2024 5:28 PM CDT) Sodium 133(L) 135 - 145 mmol/L 04/27/2024 5:51 PM CDT [facility] LABORATORY Comment:Reference intervals for this test were updated on 08/14/2023 to more accurately reflect our healthy population. There may be differences in the flagging of prior results with similar values performed with this method. Interpretation of those prior results can be made in the context of the updated reference intervals. Potassium 4.2 3.4 - 5.3 mmol/L 04/27/2024 5:51 PM CDT [facility] LABORATORY Carbon Dioxide (CO2) 27 22 - 29 mmol/L 04/27/2024 5:51 PM CDT [facility] LABORATORY Anion Gap 11 7 - 15 mmol/L 04/27/2024 5:51 PM CDT [facility] LABORATORY Urea Nitrogen 14.3 8.0 - 23.0 mg/dL 04/27/2024 5:51 PM CDT [facility] LABORATORY Creatinine 1.18(H) 0.67 - 1.17 mg/dL 04/27/2024 5:51 PM CDT [facility] LABORATORY GFR Estimate 62 >60 mL/min/1. 73m2 04/27/2024 5:51 PM CDT [facility] LABORATORY Calcium 10.0 8.8 - 10.2 mg/dL 04/27/2024 5:51 PM CDT [facility] LABORATORY Chloride 95(L) 98 - 107 mmol/L 04/27/2024 5:51 PM CDT [facility] LABORATORY Glucose 129(H) 70 - 99 mg/dL 04/27/2024 5:51 PM CDT [facility] LABORATORY Alkaline Phosphatase 119 40 - 150 U/L 04/27/2024 5:51 PM CDT [facility] LABORATORY AST 25 0 - 45 U/L 04/27/2024 5:51 PM CDT [facility] LABORATORY Comment:Reference intervals for this test were updated on 04/30/2023 to more accurately reflect our healthy population. There may be differences in the flagging of prior results with similar values performed with this method. Interpretation of those prior results can be made in the context of the updated reference intervals. ALT 20 0 - 70 U/L 04/27/2024 5:51 PM CDT [facility] LABORATORY Comment:Reference intervals for this test were updated on 04/30/2023 to more accurately reflect our healthy population. There may be differences in the flagging of prior results with similar values performed with this method. Interpretation of those prior results can be made in the context of the updated reference intervals. Protein Total 7.3 6.4 - 8.3 g/dL 04/27/2024 5:51 PM CDT [facility] LABORATORY Albumin 4.1 3.5 - 5.2 g/dL 04/27/2024 5:51 PM CDT [facility] LABORATORY Bilirubin Total 0.8 <=1.2 mg/dL 04/27/2024 5:51 PM CDT [facility] LABORATORY Blood BLOOD SPECIMEN / Unknown Venipuncture / Unknown 04/27/2024 5:28 PM CDT 04/27/2024 5:33 PM CDT Ady Tomlinson MD LAB - BLOOD ORDERABL ES [facility] LABORATORY [facility] [address] [facility] Lab (1st floor, no room number) [place] [address] * XR Pelvis and Hip Right 1 View (04/25/2024 12:35 PM CDT) Anatomical Region Laterality Modality Abdomen/Pelvis Right Digital Radiogra phy Impressions 04/25/2024 1:31 PM CDT IMPRESSION: 1. Degenerative changes in the visualized spine. Mild osteoarthrosis of the SI joints. The hips appear normal and symmetric. 2. Diffuse bone demineralization. There is no evidence of fracture or osteonecrosis. 3. Extensive arterial calcifications and stents. CELESTINE SALOMON MD SYSTEM ID: ??[id number] Narrative 04/25/2024 1:31 PM CDT PELVIS AND RIGHT HIP, ONE VIEW ?? 04/25/2024 12:35 PM HISTORY: ??Fall, right pelvis pain. COMPARISON: None. Procedure Note Celestine Salomon MD - 04/25/2024 PELVIS AND RIGHT HIP, ONE VIEW 04/25/2024 12:35 PM HISTORY: Fall, right pelvis pain. COMPARISON: None. IMPRESSION: 1. Degenerative changes in the visualized spine. Mild osteoarthrosis of the SI joints. The hips appear normal and symmetric. 2. Diffuse bone demineralization. There is no evidence of fracture or osteonecrosis. 3. Extensive arterial calcifications and stents. CELESTINE SALOMON MD SYSTEM ID: [id number] Adrian Phillips MD IMG DIAGNOSTIC IM AGING ORDERABLES * Head CT w/o contrast (04/25/2024 12:19 PM CDT) Anatomical Region Laterality Modality Head, SUBRAD CT NEURO, SUBRA D CT NEURO, UMP CT NEURO, RAD CT Computed Tomography Impressions 04/25/2024 12:36 PM CDT IMPRESSION: 1. No acute intracranial pathology. 2. 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 CHAR MEYERS MD SYSTEM ID: ??[id number] Narrative 04/25/2024 12:36 PM CDT EXAM: CT HEAD W/O CONTRAST ??04/25/2024 12:19 PM HISTORY: ??fall ,head trauma, on coumadin ?? COMPARISON: ??Brain MRI 11/29/2022 TECHNIQUE: Using multidetector thin collimation helical acquisition technique, axial, coronal and sagittal CT images from the skull base to the vertex were obtained without intravenous contrast. Director Of Placement (topogram) image(s) also obtained and reviewed. Dose reduction techniques were performed. FINDINGS: No intracranial hemorrhage, mass effect, or midline shift. No acute loss of naik-white matter differentiation in the cerebral hemispheres. Ventricles are proportionate to the cerebral sulci. Clear basal cisterns. Advanced patchy periventricular and subcortical hypodensities, consistent with chronic small vessel ischemic disease. Encephalomalacia in the left occipital lobe with exvacuodilatation of the left lateral ventricle. Small chronic lacunar infarcts in bilateral basal ganglia. Mild to moderate generalized cerebral volume loss. The bony calvaria and the bones of the skull base are normal. The visualized portions of the paranasal sinuses and mastoid air cells are clear. Grossly normal orbits. Procedure Note Char Meyers MD - 04/25/2024 EXAM: CT HEAD W/O CONTRAST 04/25/2024 12:19 PM HISTORY: fall ,head trauma, on coumadin COMPARISON: Brain MRI 11/29/2022 TECHNIQUE: Using multidetector thin collimation helical acquisition technique, axial, coronal and sagittal CT images from the skull base to the vertex were obtained without intravenous contrast. Director Of Placement (topogram) image(s) also obtained and reviewed. Dose reduction techniques were performed. FINDINGS: No intracranial hemorrhage, mass effect, or midline shift. No acute loss of naik-white matter differentiation in the cerebral hemispheres. Ventricles are proportionate to the cerebral sulci. Clear basal cisterns. Advanced patchy periventricular and subcortical hypodensities, consistent with chronic small vessel ischemic disease. Encephalomalacia in the left occipital lobe with exvacuodilatation of the left lateral ventricle. Small chronic lacunar infarcts in bilateral basal ganglia. Mild to moderate generalized cerebral volume loss. The bony calvaria and the bones of the skull base are normal. The visualized portions of the paranasal sinuses and mastoid air cells are clear. Grossly normal orbits. IMPRESSION: 1. No acute intracranial pathology. 2. 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 CHAR MEYERS MD SYSTEM ID: [id number] Adrian Phillips MD IMG CT ORDERABLES * Extra Blue Top Tube (04/25/2024 11:26 AM CDT) Pathologist [facility] Hold Specimen RECEIVED. 04/25/2024 1:46 PM CDT LABORATORY Blood BLOOD SPECIMEN / Unknown Venipuncture / Unknown 04/25/2024 11:26 AM CDT 04/25/2024 11:36 AM CDT Adrian Phillips MD LAB - BLOOD ORDER KASEY LABORATORY [facility] [address] [facility] Lab (1st floor, no room number) [place] [address], [facility] * (ABNORMAL) Basic metabolic panel (BMP) (04/25/2024 11:26 AM CDT) Sodium 136 135 - 145 mmol/L 04/25/2024 12:01 PM CDT LABORATORY Comment:Reference intervals for this test were updated on 08/14/2023 to more accurately reflect our healthy population. There may be differences in the flagging of prior results with similar values performed with this method. Interpretation of those prior results can be made in the context of the updated reference intervals. Potassium 4.2 3.4 - 5.3 mmol/L 04/25/2024 12:01 PM CDT LABORATORY Chloride 97(L) 98 - 107 mmol/L 04/25/2024 12:01 PM CDT LABORATORY Carbon Dioxide (CO2) 26 22 - 29 mmol/L 04/25/2024 12:01 PM CDT LABORATORY Anion Gap 13 7 - 15 mmol/L 04/25/2024 12:01 PM CDT LABORATORY Urea Nitrogen 11.7 8.0 - 23.0 mg/dL 04/25/2024 12:01 PM CDT LABORATORY Creatinine 1.13 0.67 - 1.17 mg/dL 04/25/2024 12:01 PM CDT LABORATORY GFR Estimate 65 >60 mL/min/1. 73m2 04/25/2024 12:01 PM CDT LABORATORY Calcium 9.6 8.8 - 10.2 mg/dL 04/25/2024 12:01 PM CDT LABORATORY Glucose 127(H) 70 - 99 mg/dL 04/25/2024 12:01 PM CDT LABORATORY Blood BLOOD SPECIMEN / Unknown Venipuncture / Unknown 04/25/2024 11:26 AM CDT 04/25/2024 11:36 AM CDT Adrian Phillips MD LAB - BLOOD ORDER KASEY LABORATORY [facility] [address] [facility] Lab (1st floor, no room number) [place] [address] * MR Foot Left w/o Contrast (03/30/2024 4:59 PM CDT) Anatomical Region Laterality Modality Left Foot, SUBRAD MR MSK, UMP MR MSK, RAD MR Magnetic Resonance Impressions 03/31/2024 9:02 AM CDT Impression: Images degraded by motion. Examination terminated prematurely by the patient. Nondisplaced fracture of the base of the fifth proximal phalanx. GRAHAM SMITH MD (Joe) Narrative 03/31/2024 9:02 AM CDT MR left foot without ??contrast 03/31/2024 8:46 AM History: Pain in left foot Techniques: Multiplanar multisequence imaging of the left foot was obtained without ??administration of intravenous contrast. Comparison: Radiographs 06/20/2021 Findings: Images degraded by motion. Examination terminated prematurely by the patient. Patient marker plantar to the proximal first metatarsal. Bones Nondisplaced intra-articular fracture of the base of the fifth proximal phalanx. Joints and periarticular soft tissue Joint effusion: Physiologic amount of joint fluid is present. Plantar plates: Intersesamoidal ligament and sesamoidal phalangeal ligaments of the first metatarsophalangeal joints are intact. Plantar plates of the second through fifth toe at metatarsophalangeal joints are grossly intact. Intermetatarsal spaces: No interdigital neuroma. No intermetatarsal bursitis. Ligaments and Tendons Lisfranc interosseous ligament: Intact. Tendons: The visualized courses of flexor and extensor tendons are intact. Muscles Diffuse muscular edema and atrophy compatible with polyneuropathy/microangiopathy. ANCILLARY FINDINGS Subcutaneous edema. Procedure Note Graham Smith, DO - 03/31/2024 MR left foot without contrast 03/31/2024 8:46 AM History: Pain in left foot Techniques: Multiplanar multisequence imaging of the left foot was obtained without administration of intravenous contrast. Comparison: Radiographs 06/20/2021 Findings: Images degraded by motion. Examination terminated prematurely by the patient. Patient marker plantar to the proximal first metatarsal. Bones Nondisplaced intra-articular fracture of the base of the fifth proximal phalanx. Joints and periarticular soft tissue Joint effusion: Physiologic amount of joint fluid is present. Plantar plates: Intersesamoidal ligament and sesamoidal phalangeal ligaments of the first metatarsophalangeal joints are intact. Plantar plates of the second through fifth toe at metatarsophalangeal joints are grossly intact. Intermetatarsal spaces: No interdigital neuroma. No intermetatarsal bursitis. Ligaments and Tendons Lisfranc interosseous ligament: Intact. Tendons: The visualized courses of flexor and extensor tendons are intact. Muscles Diffuse muscular edema and atrophy compatible with polyneuropathy/microangiopathy. ANCILLARY FINDINGS Subcutaneous edema. Impression: Images degraded by motion. Examination terminated prematurely by the patient. Nondisplaced fracture of the base of the fifth proximal phalanx. GRAHAM SMITH MD (Joe) Violette Acharya BAIRON IMG MRI ORDERABLES * ECHO COMPLETE (03/27/2024 11:41 AM CDT) LVEF 55-60% CARDIOLOGY RESULTS Anatomical Region Laterality Modality Echocardiography 03/27/2024 10:3 5 AM CDT Narrative 03/27/2024 3:05 PM CDT [id number]^BLANCA^GAEL^JULIETTE [facility] Laboratory [address] [place] [id number] Name: RAFFY MONTGOMERY : 1940 Study Date: 03/27/2024 10:35 AM Age: 83 yrs Gender: Male Patient Location: [facility] Reason For Study: S/P CABG (coronary artery bypass graft), COATS (dyspnea on exertio Ordering Physician: GAEL SULLIVAN Referring Physician: GAEL SULLIVAN Performed By: Eddie Alexandre RDCS BSA: 2.3 m2 Height: 74 in Weight: 220 lb HR: 74 BP: 143/78 mmHg Procedure Complete Echo Adult. Interpretation Summary The left ventricle is normal in size. The visual ejection fraction is 55-60%. Grade I or early diastolic dysfunction. The right ventricle is normal size. Mildly decreased right ventricular systolic function There is trace tricuspid regurgitation. The right ventricular systolic pressure is approximated at 29mmHg plus the right atrial pressure. There is moderate trileaflet aortic sclerosis. No hemodynamically significant valvular aortic stenosis. The aortic root and ascending aorta are both mildy dilated (4.0 and 4.2 cm respectively), unchanged from 10/2021 The study was technically difficult. Left Ventricle The left ventricle is normal in size. There is normal left ventricular wall thickness. The visual ejection fraction is 55-60%. Grade I or early diastolic dysfunction. Diastolic Doppler findings (E/E' ratio and/or other parameters) suggest left ventricular filling pressures are indeterminate. No regional wall motion abnormalities noted. Right Ventricle The right ventricle is normal size. Mildly decreased right ventricular systolic function. Atria Normal left atrial size. Right atrial size is normal. There is no atrial shunt seen. Mitral Valve There is moderate mitral annular calcification. There is trace mitral regurgitation. Tricuspid Valve Normal tricuspid valve. There is trace tricuspid regurgitation. The right ventricular systolic pressure is approximated at 29mmHg plus the right atrial pressure. Aortic Valve There is moderate trileaflet aortic sclerosis. No aortic regurgitation is present. No hemodynamically significant valvular aortic stenosis. Pulmonic Valve The pulmonic valve is not well seen, but is grossly normal. Vessels Aortic root dilatation is present. Ascending aorta dilatation is present. MMode/2D Measurements & Calculations IVSd: 1.1 cm LVIDd: 4.8 cm LVIDs: 2.8 cm LVPWd: 1.0 cm FS: 41.0 % LV mass(C)d: 181.2 grams LV mass(C)dI: 80.1 grams/m2 Ao root diam: 4.0 cm asc Aorta Diam: 4.2 cm LVOT diam: 2.4 cm LVOT area: 4.5 cm2 Ao root diam index Ht(cm/m): 2.1 Ao root diam index BSA (cm/m2): 1.8 Asc Ao diam index BSA (cm/m2): 1.9 Asc Ao diam index Ht(cm/m): 2.2 LA Volume (BP): 49.3 ml LA Volume Index (BP): 21.8 ml/m2 RWT: 0.43 TAPSE: 1.1 cm Time Measurements Aortic HR: 69.0 BPM Doppler Measurements & Calculations MV E max broderick: 88.0 cm/sec MV A max broderick: 117.0 cm/sec MV E/A: 0.75 MV max P.2 mmHg MV mean P.8 mmHg MV V2 VTI: 40.2 cm MVA(VTI): 2.7 cm2 MV dec time: 0.23 sec LV V1 max P.6 mmHg LV V1 max: 128.0 cm/sec LV V1 VTI: 24.6 cm CO(LVOT): 7.6 l/min CI(LVOT): 3.4 l/min/m2 SV(LVOT): 110.3 ml SI(LVOT): 48.7 ml/m2 PA acc time: 0.11 sec TR max broderick: 247.8 cm/sec TR max P.7 mmHg E/E' av.4 Lateral E/e': 12.3 Medial E/e': 10.6 RV S Broderick: 10.7 cm/sec Report approved by: Car Cheng 03/27/2024 03:05 PM Procedure Note Denzel Gunderson MD - 03/27/2024 [id number]^BLANCA^GAEL^JULIETTE [facility] [address] [place] [address] Name: RAFFY MONTGOMERY : 1940 Study Date: 03/27/2024 10:35 AM Age: 83 yrs Gender: Male Patient Location: [facility] Reason For Study: S/P CABG (coronary artery bypass graft), COATS (dyspneaon exertio Ordering Physician: GAEL SULLIVAN Referring Physician: GAEL SULLIVAN Performed By: Eddie Alexandre RDCS BSA: 2.3 m2 Height: 74 in Weight: 220 lb HR: 74 BP: 143/78 mmHg Procedure Complete Echo Adult. Interpretation Summary The left ventricle is normal in size. The visual ejection fraction is 55-60%. Grade I or early diastolic dysfunction. The right ventricle is normal size. Mildly decreased right ventricular systolic function There is trace tricuspid regurgitation. The right ventricular systolic pressure is approximated at 29mmHg plusthe right atrial pressure. There is moderate trileaflet aortic sclerosis. No hemodynamically significant valvular aortic stenosis. The aortic root and ascending aorta are both mildy dilated (4.0 and 4.2cm respectively), unchanged from 10/2021 The study was technicallydifficult. Left Ventricle The left ventricle is normal in size. There is normal left ventricularwall thickness. The visual ejection fraction is 55-60%. Grade I or earlydiastolic dysfunction. Diastolic Doppler findings (E/E' ratio and/or otherparameters) suggest left ventricular filling pressures are indeterminate. No regionalwall motion abnormalities noted. Right Ventricle The right ventricle is normal size. Mildly decreased right ventricular systolic function. Atria Normal left atrial size. Right atrial size is normal. There is no atrialshunt seen. Mitral Valve There is moderate mitral annular calcification. There is trace mitral regurgitation. Tricuspid Valve Normal tricuspid valve. There is trace tricuspid regurgitation. Theright ventricular systolic pressure is approximated at 29mmHg plus the rightatrial pressure. Aortic Valve There is moderate trileaflet aortic sclerosis. No aortic regurgitationis present. No hemodynamically significant valvular aortic stenosis. Pulmonic Valve The pulmonic valve is not well seen, but is grossly normal. Vessels Aortic root dilatation is present. Ascending aorta dilatation ispresent. MMode/2D Measurements & Calculations IVSd: 1.1 cm LVIDd: 4.8 cm LVIDs: 2.8 cm LVPWd: 1.0 cm FS: 41.0 % LV mass(C)d: 181.2 grams LV mass(C)dI: 80.1 grams/m2 Ao root diam: 4.0 cm asc Aorta Diam: 4.2 cm LVOT diam: 2.4 cm LVOT area: 4.5 cm2 Ao root diam index Ht(cm/m): 2.1 Ao root diam index BSA (cm/m2): 1.8 Asc Ao diam index BSA (cm/m2): 1.9 Asc Ao diam index Ht(cm/m): 2.2 LA Volume (BP): 49.3 ml LA Volume Index (BP): 21.8 ml/m2 RWT: 0.43 TAPSE: 1.1 cm Time Measurements Aortic HR: 69.0 BPM Doppler Measurements & Calculations MV E max broderick: 88.0 cm/sec MV A max broderick: 117.0 cm/sec MV E/A: 0.75 MV max P.2 mmHg MV mean P.8 mmHg MV V2 VTI: 40.2 cm MVA(VTI): 2.7 cm2 MV dec time: 0.23 sec LV V1 max P.6 mmHg LV V1 max: 128.0 cm/sec LV V1 VTI: 24.6 cm CO(LVOT): 7.6 l/min CI(LVOT): 3.4 l/min/m2 SV(LVOT): 110.3 ml SI(LVOT): 48.7 ml/m2 PA acc time: 0.11 sec TR max broderick: 247.8 cm/sec TR max P.7 mmHg E/E' av.4 Lateral E/e': 12.3 Medial E/e': 10.6 RV S Broderick: 10.7 cm/sec Report approved by: Car Cheng 03/27/2024 03:05 PM Gael Sullivan MD CV ECHO ORDERABLES * US MISSAEL Doppler No Exercise (MISSAEL at rest) (03/27/2024 10:29 AM CDT) Anatomical Region Laterality Modality Extremity Ultrasound Impressions 03/27/2024 11:38 AM CDT IMPRESSION: 1. Normal MISSAEL examination of the right lower extremity. 2. Mild arterial insufficiency in the left lower extremity, slightly reduced from previous exam. MISSAEL CRITERIA: >1.4 NC 0.95-1.4 Normal 0.90 - 0.94 Mild 0.5 - 0.89 Moderate 0.2 - 0.49 Severe <0.2 Critical ASHU GONZALEZ MD Narrative 03/27/2024 11:38 AM CDT ULTRASOUND MISSAEL DOPPLER NO EXERCISE, 1-2 LEVELS, BILATERAL March 27, 2024 10:29 AM HISTORY: Palpitations. Status post CABG (coronary artery bypass graft). COATS (dyspnea on exertion). PAD (peripheral artery disease) (H24). COMPARISON: July 19, 2018. FINDINGS: Right MISSAEL: PT: 155, index of 1.0, previously 1.14. DP: 146, index of 0.94, previously 1.07. Left MISSAEL: PT: 120, index of 0.77, previously 0.86. DP: 120, index of 0.77, previously 0.76. Waveforms: Distal right posterior tibial and dorsalis pedis waveforms are triphasic. The left femoral, popliteal, posterior tibial, and dorsalis pedis waveforms are triphasic/biphasic. Procedure Note Ashu Gonzalez MD - 03/27/2024 ULTRASOUND MISSAEL DOPPLER NO EXERCISE, 1-2 LEVELS, BILATERAL March 27, 2024 10:29 AM HISTORY: Palpitations. Status post CABG (coronary artery bypass graft). COATS (dyspnea on exertion). PAD (peripheral artery disease) (H24). COMPARISON: July 19, 2018. FINDINGS: Right MISSAEL: PT: 155, index of 1.0, previously 1.14. DP: 146, index of 0.94, previously 1.07. Left MISSAEL: PT: 120, index of 0.77, previously 0.86. DP: 120, index of 0.77, previously 0.76. Waveforms: Distal right posterior tibial and dorsalis pedis waveforms are triphasic. The left femoral, popliteal, posterior tibial, and dorsalis pedis waveforms are triphasic/biphasic. IMPRESSION: 1. Normal MISSAEL examination of the right lower extremity. 2. Mild arterial insufficiency in the left lower extremity, slightly reduced from previous exam. MISSAEL CRITERIA: >1.4 NC 0.95-1.4 Normal 0.90 - 0.94 Mild 0.5 - 0.89 Moderate 0.2 - 0.49 Severe <0.2 Critical ASHU GONZALEZ MD Gael Sullivan MD [facility] US ORDERABLES * NM Lexiscan stress test (nuc card) (03/19/2024 1:28 PM CDT) Target HR 138 RADIANT Baseline Systolic BP 140 RADIANT Baseline Diastolic BP 77 RADIANT Last Stress Systolic BP 140 RADIANT Last Stress Diastolic BP 69 RADIANT Baseline HR 72 bpm RADIANT Max HR 84 RADIANT Max Predicted HR 61 % RADIANT Rate Pressure Product 11,760.0 RADIANT Left Ventricular EF 61 % RADIANT Anatomical Region Laterality Modality Chest Nuclear Medicine Narrative 03/19/2024 2:52 PM CDT ?The nuclear stress test is negative for inducible myocardial ischemia or infarction. ?The left ventricular ejection fraction at stress is 61%. ?No previous nuclear stress for comparison. Stress Findings A pharmacologic stress test was performed following a supine Lexiscan protocol using 0.4 mg of intravenous regadenoson administered over 10 seconds under the supervision of Dr. Denzel Multani. No symptoms were reported by the patient during the stress test. ECG Baseline electrocardiogram demonstrates sinus rhythm and right bundle branch block. The stress electrocardiogram is negative for inducible ischemic EKG changes. There were no arrhythmias during stress. Isotope Administration Nuclear imaging was accomplished using a one day protocol with 32.9 mCi of technetium sestamibi injected at the completion of Lexiscan infusion on 03/19/2024 and 11 mCi of technetium sestamibi at rest on 03/19/2024. Nuclear Study Quality The coding quality coordinator images demonstrate subdiaphragmatic radiotracer activity interference. Final image quality is satisfactory. Perfusion Defect The nuclear stress test is negative for inducible myocardial ischemia or infarction. The left ventricular ejection fraction at stress is 61%. Nuclear Prior Study A prior study was conducted on 12/14/2010. Perfusion Scoring Stress Summed Score: 0 Percent Normal: 0.00% The left ventricular perfusion is normal. Perfusion Scoring Resting Summed Score: 0 Percent Normal: 0.00% The left ventricular perfusion is normal. Perfusion Scores: SRS Score: 0 Percentage Abnormal: 0.00% Perfusion Scores: SSS Score: 0 Percentage Abnormal: 0.00% Perfusion Scores: SDS Score: 0 Percentage Abnormal: 0.00% Wall Motion Score Index: 1.00 The left ventricular wall motion is normal. Gael Sullivan MD IMG NM ORDERABLES * EKG 12-lead complete w/read - Clinics (performed today) (03/06/2024) Gael Sullivan MD ECG ORDERABLES * (ABNORMAL) UA with Microscopic reflex to Culture (11/29/2022 2:34 PM [facility]) Color Urine Light Yellow Colorless, Straw, Light Yellow, Yellow 11/29/2022 3:26 PM [facility] Appearance Urine Clear Clear 11/29/19 3:26 PM [facility] Glucose Urine Negative Negative mg/dL 11/29/2022 3:26 PM [facility] Bilirubin Urine Negative Negative 3:26 PM [facility] Ketones Urine Negative Negative mg/dL 11/29/2022 3:26 PM [facility] Specific [place] Urine 1.040(H) 1.003 - 1.035 11/29/2022 3:26 PM [facility] Blood Urine Negative Negative 11/29/2022 3:26 PM [facility] pH Urine 7.0 5.0 - 7.0 11/29/2022 3:26 PM [facility] Protein Albumin Urine Negative Negative mg/dL 11/29/2022 3:26 PM [facility] Urobilinogen Urine Normal Normal, 2.0 mg/dL 11/29/2022 3:26 PM [facility] Nitrite Urine Negative Negative 11/29/2022 3:26 PM [facility] Leukocyte Esterase Urine Negative Negative 11/29/2022 3:26 PM [facility] Mucus Urine Present(A) None Seen /LPF 11/29/2022 3:26 PM [facility] RBC Urine 1 <=2 /HPF 11/29/2022 3:26 PM [facility] WBC Urine 2 <=5 /HPF 11/29/2022 3:26 PM [facility] Hyaline Casts Urine 1 <=2 /LPF 11/29/2022 3:26 PM [facility] Urine URINE SPECIMEN OBTAINED BY CLEAN CATCH PROCEDURE / Unknown Non-blood Collection / Unknown 11/29/2022 2:34 PM [facility] [facility] 11/29/2022 2:43 PM [facility] [facility] Narrative LABORATORY - 11/29/2022 3:26 PM [facility] [facility] Urine Culture not indicated Remigio Loomis MD LAB - URINE ORDERABL ES Performing Organization Address City/[facility]/ZIP Co de Phone Number LABORATORY [facility] [address], [address] [place] [address], [facility] [phone] * Lipid panel reflex to direct LDL (08/31/2021 9:21 AM CDT) Cholesterol 128 <200 mg/dL 08/31/2021 10:00 AM CDT LABORATORY Triglycerides 90 <150 mg/dL 08/31/2021 10:00 AM CDT LABORATORY Direct Measure HDL 50 >=40 mg/dL 2020 10:00 AM CDT LABORATORY LDL Cholesterol Calculated 60 <=100 mg/dL 08/31/2021 10:00 AM CDT LABORATORY Non HDL Cholesterol 78 <130 mg/dL 08/31/2021 10:00 AM CDT LABORATORY Blood STRUCTURE OF LEFT UPPER LIMB / Unknown Venipuncture / Unknown 08/31/2021 9:21 AM CDT 08/31/2021 9:29 AM CDT Narrative LABORATORY - 08/31/2021 10:00 AM CDT Cholesterol Desirable: ??<200 mg/dL Triglycerides Normal: ??Less than 150 mg/dL Borderline High: ??150-199 mg/dL High: ??200-499 mg/dL Very High: ??Greater than or equal to 500 mg/dL Direct Measure HDL Female: ??Greater than or equal to 50 mg/dL Male: ??Greater than or equal to 40 mg/dL LDL Cholesterol Desirable: ??<100mg/dL Above Desirable: ??100-129 mg/dL Borderline High: ??130-159 mg/dL High: ??160-189 mg/dL Very High: ??>= 190 mg/dL Non HDL Cholesterol Desirable: ??130 mg/dL Above Desirable: ??130-159 mg/dL Borderline High: ??160-189 mg/dL High: ??190-219 mg/dL Very High: ??Greater than or equal to 220 mg/dL Jak Cervantes MD LAB - BLOOD ORD ERABLES LABORATORY [facility] [address] [place] [address], [facility] [phone] * Albumin Random Urine Quant FUTURE 1yr (03/28/2017 9:58 AM CDT) Creatinine Urine 158 mg/dL [facility] Albumin Urine mg/L 17 mg/L [facility] Albumin Urine mg/g Cr 10.63 0 - 17 mg/g Cr [facility] Urine specimen (specimen) 03/28/2017 9:58 AM CDT 03/28/2017 9:59 AM CDT Navarro Trejo MD LAB - URINE ORD ERABLES [facility] [address] [address], [facility] [phone] from Last 3 Months or Most Recently Relevant to Health Maintenance Advance Directives For more information, please contact: [phone] * Full Code (Latest Code Status on File) Date Activated Date Inactivated Comments 11/29/2022 8:15 PM 12/01/2022 6:13 PM All basic an d advanced life-sustaining interventions are performed as appropriate Question Answer Comments Code status determined by: Discussion with patie nt/ legal decision maker * Full Code Date Activated Date Inactivated Comments 09/30/2022 11:16 PM 10/01/2022 4:14 PM All basic and advanced life-sustaining interventions are performed as appropriate Question Answer Comments Code status determined by: Discussion with patie nt/ legal decision maker * Full Code Date Activated Date Inactivated Comments 11/09/2021 12:33 PM 09/30/2022 6:06 PM Question Answer Comments Code status determined by: Discussion with patie nt/ legal decision maker * Full Code Date Activated Date Inactivated Comments 11/08/2021 11:41 AM 11/09/2021 12:33 PM All basi c and advanced life-sustaining interventions are performed as appropriate Question Answer Comments Code status determined by: Discussion with patie nt/ legal decision maker * Full Code Date Activated Date Inactivated Comments 11/07/2021 8:55 PM 11/08/2021 11:41 AM All basic and advanced life-sustaining interventions are performed as appropriate Question Answer Comments Code status determined by: Unable to det ermine; FULL CODE until documents or legal decision maker available Care Teams Siebel Solution Architect Relationship Specialty [place] [address] [place] [address] PCP - General Family Medicine 03/29/22 [facility] 05/29/19 Jairon Sofia MD [address] [place] [address] [place] [address] Urology 09/09/19 Lesvia Aguilar, RN Personal Advocate & Liaison (PAL) Family Medicine 06/20/21 [place] [address] [place] [address] Assigned PCP 01/01/22 [place] [address] [facility] [address] [place] [address] Assigned Musculoskeletal Provider 03/24/23 [place] [address] [place] [address] Nurse Practitioner Nurse Practitioner 04/09/23 [place] [address] [facility] [address] [place] [address] Cardiovascular Disease 12/21/23 Gael Sullivan MD [address] [facility] [address] [place] [address] Assigned Heart and Vascular Provider 03/11/24
--- OUTSIDE RECORDS SUMMARY | 2024-05-10 22:41 | XMS_ITS | Clinical Summary ---
Author Organization [facility] Address [address] [place] [address]. [place] [address] Care Team Providers Care Last Sorter Name Role Phone [facility], [facility] Unavailable Jairon Sofia MD Unavailable [phone] Lesvia Aguilar RN Unavailable Unavailable [facility] Unavailable [phone] Mandi Mar MD Primary Care Provider [phone] Neela Baum MD Unavailable [phone] Mariza Green NP Unavailable [phone] Gael Sullivan MD Unavailable [phone] Gael Sullivan MD Unavailable [phone] Allergies Active Allergy Reactions Criticality Noted Date [...] Active enoxaparin ANTICOAGULANT (LOVENOX) 100 MG/ML syringeIndications: half-way current use of 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 with INR goal [...] Overview: Added automatically from request for surgery [id number] Choledocholithiasis 05/30/2021 RUQ abdominal pain 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/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 of ant icoagulants with INR goal of 2.0-3.0 07/08/2020 Atrial fibrillation, unspecified type 07/08/2020 CKD (chronic kidney disease) stage 3, GFR 30-59 ml/min 10/20/2019 Status post coronary angiogram 10/02/2019 Peripheral artery insufficiency (H24) 08/27/2019 Overview: Added automatically from request for surgery [id number] 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 [...] y disease, unspecified COPD type 05/14/2019 06/24/2020 half-way current use of ant icoagulant therapy 06/28/2017 [...] Provider to review Essential hypertension, benign 04/17/2012 Encounters Date Type Department Care Team Description 05/09/2024 Telephone [facility] [address] [place] [address] Mandi Mar MD Back Pain 05/08/2024 Telephone [facility] [address] [place] [address] Mandi Mar MD Anticoagulation (PT SPOUSE IS CALLING BACK, MISSED CALL WITH INR NURSE) 05/08/2024 Telephone [facility] [address] [place] [address] Mandi Mar MD Back Pain 05/06/2024 Telephone [facility] [address] [place] [address] Mandi Mar MD Anticoagulation 05/06/2024 Anticoagulation Therapy Visit [facility] [address] [place] [phone] Isa Osullivan RN Atrial fibrillation, unspecified type (H) (Primary Dx); half-way current use of 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 with INR goal of 2.0-3.0; 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), unspecified mechanism (H) 05/06/2024 Orders Only [facility] [address] [place] [phone] Mandi Mar MD 04/29/2024 Anticoagulation Therapy Visit [facility] [address] [phone] José Miguel Ponce RN Atrial fibrillation, unspecified type (H) (Primary Dx); 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 with INR goal of 2.0-3.0; 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), unspecified mechanism (H) 04/29/2024 Documentation Only [facility] [address] [place] [phone] Karen Ferreira RN Anticoagulation 04/29/2024 Orders Only [facility] [address] [place] [phone] Mandi Mar MD 04/28/2024 Documentation Only [facility] [address] [phone] Shawna Bunn RN Atrial fibrillation, unspecified type (H) (Primary Dx); half-way current use of 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 with INR goal of 2.0-3.0; 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), unspecified mechanism (H) 04/28/[address] [phone] Mandi Mar MD Hospital F/U 04/27/2024 5:17 PM CDT - 04/27/2024 7:49 PM CDT Emergency [facility] Emergency Dept [address] [place] [address] Ady Tomlinson MD Fall at home, initial encounter; Musculoskeletal pain; Closed compression fracture of body of L1 vertebra (H) Discharge Disposition: Home or Self Care 04/27/2024 Travel 04/25/2024 11:18 AM CDT - 04/25/2024 2:00 PM CDT Emergency [facility] Emergency Dept [address] [place] [phone] Adrian Phillips MD Fall, initial encounter; Contusion of right hip, initial encounter; Contusion of scalp, initial encounter Discharge Disposition: Hospice/Home 04/25/2024 Telephone [facility] [address] [place] [phone] Karen Ferreira RN Anticoagulation 04/25/2024 Travel 04/22/2024 Anticoagulation Therapy Visit [facility] [address] [phone] Kaur Jean-Baptiste RN Atrial fibrillation, unspecified type (H) (Primary Dx); half-way current use of 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 with INR goal of 2.0-3.0; 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), unspecified mechanism (H) 04/22/2024 Orders Only [facility] [address] [place] [phone] Mandi Mar MD 04/11/[address] [phone] Mandi Mar MD Refill Request (atorvastatin (LIPITOR) 80 MG tablet) 04/08/[address] [phone] Mandi Mar MD Refill Request (baclofen (LIORESAL) 10 MG tablet) 04/08/2024 Telephone [facility] [address] [place] [phone] José Miguel Ponce RN Anticoagulation Procedure Plan 04/08/2024 Anticoagulation Therapy Visit [facility] [address] [place] [phone] José Miguel Ponce RN Atrial fibrillation, unspecified type (H) (Primary Dx); half-way current use of 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 with INR goal of 2.0-3.0; 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), unspecified mechanism (H) 04/08/2024 Orders Only [facility] [address] [place] [address] Mandi Mar MD 03/30/2024 3:57 PM CDT - 03/30/2024 11:59 PM CDT Hospital Encounter [facility] [address] [place] [address] Violette Acharya PA-C Pain in left foot Discharge Disposition: Home or Self Care 03/30/2024 Travel 03/27/2024 10:23 AM CDT - 03/27/2024 11:59 PM CDT Hospital Encounter [facility] [address] [place] [address] [address] [place] [address] Gael Sullivan MD S/P CABG (coronary artery bypass graft); COATS (dyspnea on exertion) Discharge Disposition: Home or Self Care 03/27/2024 9:35 AM CDT - 03/27/2024 10:22 AM CDT Hospital Encounter [facility] [address] [place] [address] Gael Sullivan MD Palpitations; S/P CABG (coronary artery bypass graft); COATS (dyspnea on exertion); PAD (peripheral artery disease) (H24) Discharge Disposition: Home or Self Care 03/27/2024 Travel 03/19/2024 10:33 AM CDT - 03/19/2024 11:59 PM CDT Hospital Encounter [facility] [address] [place] [address] Gael Sullivan MD Discharge Disposition: Home or Self Care 03/19/2024 10:32 AM CDT Hospital Encounter [facility] [address] [place] [address] Gael Sullivan MD Discharge Disposition: Home or Self Care 03/19/2024 10:32 AM CDT Hospital Encounter [facility] [address] [place] [address] Gael Sullivan MD Discharge Disposition: Home or Self Care 03/19/2024 10:30 AM CDT - 03/19/2024 10:31 AM CDT Hospital Encounter [facility] [address] [place] [address] Gael Sullivan MD S/P CABG (coronary artery bypass graft); COATS (dyspnea on exertion) Discharge Disposition: Home or Self Care 03/19/2024 Travel 03/18/2024 Anticoagulation Therapy Visit [facility] [address] [place] [phone] Chary Camp RN Atrial fibrillation, unspecified type (H) (Primary Dx); half-way current use of 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 with INR goal of 2.0-3.0; 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), unspecified mechanism (H) 03/18/2024 Orders Only [facility] [address] [place] [phone] Mandi Mar MD 03/10/2024 Telephone [facility] [address] [place] [address] [address] [place] [phone] Gael Sullivan MD Appointment (Annual ) 03/06/2024 1:15 PM CDT Office Visit [facility] [address] [place] [phone] Gael Sullivan MD Palpitations (Primary Dx); S/P CABG (coronary artery bypass graft); COATS (dyspnea on exertion); PAD (peripheral artery disease) (H24) 03/06/2024 Travel 02/26/2024 Anticoagulation Therapy Visit [facility] [address] [place] [phone] Kaur Jean-Baptiste RN Atrial fibrillation, unspecified type (H) (Primary Dx); half-way current use of 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 with INR goal of 2.0-3.0; 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), unspecified mechanism (H) 02/26/2024 Orders Only [facility] [address] [place] [address] Mandi Mar MD from Last 3 Months Immunizations Name Administration Dates Next Due COVID-19 MONOVALENT 12+ (Pfizer) 01/26/2021,12/20 Pneumo Conj 13-V (2010&after) 03/28/2017 Pneumococcal 23 valent 03/01/2010 TD,PF 7+ (Tenivac) 03/01/2010,01/28/1995 020 TDAP Vaccine (Adacel) 06/24/2020 Family History Medical History Relation Comments Diabetes Mother Cancer No family hx of Gastrointestinal Disease No family hx of Also, n o family history of bleeding problems. Heart Disease No family hx of Relation Status Comments Brother 1 Alive Brother 2 Alive Father Mother Sister 1 Alive Sister 2 Alive Social History Tobacco Use Types Packs/Day Years [...] in an abandoned building, in an overnight detention, or couch-surfing.) Yes 08/20/2023 Are you worried [...] Description 06/09/2024 10:00 AM CDT Office Visit [facility] [address] [place] [phone] [place] [address] [place] [address] Health Maintenance Due Date Last Done Comments ZOSTER IMMUNIZATION (1 of 2) 1991 RSV VACCINE ( & 60+) (1 - 1-dose 60+ series) 2001 MICROALBUMIN 03/28/2018 03/28/2017, 10/19, 03/13/2012, Additional history exists LIPID 08/31/2022 08/31/2021, 03/20, 07/09/2018, Additional history exists COVID-19 Vaccine (2022- season) 2023 01/26/2021, 01/05/2021 FALL RISK ASSESSMENT 03/05/2024 03/05/2023, 12/18/2022, 09/09/2021, Additional history exists MEDICARE ANNUAL WELLNESS VISIT 03/05/2024 03/05/2023, 06/24/2020, 10/30/2003 PHQ-9 03/11/2024 09/10/2023, 1012/2022, 12/18/2022, Additional history exists INFLUENZA VACCINE (Season Ended) 2024 ANNUAL REVIEW OF HM ORDERS 08/20/202408/20, 08/08/2022, 08/26/2021, Additional history exists BMP 04/27/2025 04/27/2024, 06/0 05/2024, 09/10/2023, Additional history exists CBC 04/27/2025 04/27/2024, 06/0 05/2024, 09/10/2023, Additional history exists HEMOGLOBIN 04/27/2025 04/27/2024, 06/0 05/2024, 09/10/2023, Additional history exists ADVANCE CARE PLANNING 03/05/2028 03/05/2023 , 08/26/2021, 03/28/2017, Additional history exists DTAP/TDAP/TD IMMUNIZATION (2 - Td or Tdap) 06/24/2030 06/24/2020, 03/01/2010, 03/01/2010, Additional history exists Pneumococcal Vaccine: 65+ Years Completed 03/28/2017, 03/01/2010 DEPRESSION ACTION PLAN Completed 8, 03/28/2017, 05/26/2015, Additional history exists URINALYSIS Completed 11/29/2022, 08/19, 07/25/2021, Additional history exists HPV IMMUNIZATION Aged Out No longer e ligible based on patient's age to complete this topic IPV IMMUNIZATION Aged Out No longer e ligible based on patient's age to complete this topic MENINGITIS IMMUNIZATION Aged Out No l onger eligible based on patient's age to complete this topic RSV MONOCLONAL ANTIBODY Aged Out No l onger eligible based on patient's age to complete this topic Medical Devices Implanted Type 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 Insulation Board Device Identifier Shelf Expiration Date Model / Serial / Lot Stent Graft Endurant Ii Contralateral Limb [id number] - [id number] Implanted:Qty: 1 on 08/31/2021 by Jak Cervantes MD at [facility] Graft Left: Abdomen [employer] 05/30/2023 [id number] / [id number] / Stent Graft Endurant Ii Contralateral Limb [id number] - [id number] Implanted:Qty: 1 on 08/31/2021 by Jak Cervantes MD at [facility] Graft Right: Abdomen [employer] 01/27/2023 [id number] / [id number] / Endurant Ii Implanted:Qty: 1 on 08/31/2021 by Jak Cervantes MD at [facility] Right: Abdomen [id number] 02/22/2023 [id number] / [id number] / Procedures Procedure Name Priority Date/Time Associated [...] REFLEX TO CULTURE STAT 11/29/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 INR HOME MONITORING 2.2 2.000 - 3.000 [employer] 05/06/2024 Narrative [employer] - 05/06/2024 12:21 PM CDT Mandi Mar MD LAB - HIM EXTERNA L RESULT [employer] [address] [place] [address], [facility] [phone] * CT Chest/Abdomen/Pelvis w Contrast (04/27/2024 6:48 [...] CDT EXAM: CT CHEST/ABDOMEN/PELVIS W CONTRAST LOCATION: [facility] DATE: 04/27/2024 INDICATION: Right sided torso pain [...] 04/27/2024 EXAM: CT CHEST/ABDOMEN/PELVIS W CONTRAST LOCATION: [facility] DATE: 04/27/2024 INDICATION: Right sided torso pain [...] granulomatous disease right lung. Ady Tomlinson MD IMG CT ORDERABLES * Extra Red Top Tube (04/27/2024 5:28 PM CDT) Only the most recent of2 resultswithin the time period is included. Hold Specimen [facility] 04/27/2024 6:46 PM CDT [facility] Blood BLOOD SPECIMEN / Unknown Venipuncture / Unknown 04/27/2024 5:28 PM CDT 04/27/2024 5:33 PM CDT Ady Tomlinson MD LAB - BLOOD ORDERABL ES [facility] [address] [facility] Lab (1st floor, no room number) [place] [address] * CBC with platelets and differential (04/27/2024 [...] LAB - BLOOD ORDERABL ES [facility] [address] Lab (1st floor, no room number) [place] [address], [facility] * (ABNORMAL) INR (04/27/2024 5:28 PM CDT) Only the most recent of2 resultswithin the time period is included. INR 2.95(H) 0.85 - 1.15 04/27/2024 5:47 PM CDT [facility] Blood BLOOD SPECIMEN / Unknown Venipuncture / Unknown 04/27/2024 5:28 PM CDT 04/27/2024 5:33 PM CDT Ady Tomlinson MD LAB - BLOOD ORDERABL ES [facility] [address] [facility] Lab (1st floor, no room number) [place] [address] * (ABNORMAL) Comprehensive metabolic panel (04/27/2024 5:28 [...] MD LAB - BLOOD ORDERABL ES LABORATORY [facility] [address] [facility] Lab (1st floor, no room number) [place] [address], [facility] * XR Pelvis and Hip [...] and stents. CELESTINE SALOMON MD SYSTEM ID: ??[id number] Narrative 04/25/2024 1:31 PM CDT PELVIS AND [...] and stents. CELESTINE SALOMON MD SYSTEM ID: [id number] Adrian Phillips MD IMG DIAGNOSTIC IM AGING ORDERABLES * Head CT w/o contrast (04/25/2024 12:19 PM CDT) Anatomical Region Laterality Modality Head, SUBRAD CT NEURO, SUBRA D CT NEURO, UMP CT NEURO, RAD CT Computed Tomography Impressions 04/25/2024 12:36 PM CDT IMPRESSION: 1. No acute intracranial pathology. 2. 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 CHAR MEYERS MD SYSTEM ID: ??[id number] Narrative 04/25/2024 12:36 PM CDT EXAM: CT HEAD W/O CONTRAST ??04/25/2024 12:19 PM HISTORY: ??fall ,head trauma, on coumadin ?? COMPARISON: ??Brain MRI 11/29/2022 TECHNIQUE: Using multidetector thin collimation helical acquisition technique, axial, coronal and sagittal CT images from the skull base to the vertex were obtained without intravenous contrast. Hide Dyer (topogram) image(s) also obtained and reviewed. Dose [...] the vertex were obtained without intravenous contrast. Hide Dyer (topogram) image(s) also obtained and reviewed. Dose [...] occipital infarct. CHAR MEYERS MD SYSTEM ID: [id number] Adrian Phillips MD IMG CT ORDERABLES * Extra Blue Top Tube (04/25/2024 11:26 AM CDT) Pathologist [facility] Hold Specimen RECEIVED. 04/25/2024 1:46 PM CDT LABORATORY Blood BLOOD SPECIMEN / Unknown Venipuncture / Unknown 04/25/2024 11:26 AM CDT 04/25/2024 11:36 AM CDT Adrian Phillips MD LAB - BLOOD ORDER [facility] [address] Lab (1st floor, no room number) [place] [address] * (ABNORMAL) Basic metabolic panel (BMP) (04/25/2024 11:26 AM CDT) Sodium 136 135 - 145 mmol/L 04/25/2024 12:01 PM CDT [facility] Comment:Reference intervals for [...] MD LAB - BLOOD ORDER [facility] [address] Lab (1st floor, no room number) [place] [address], [facility] * MR Foot Left w/o [...] ANCILLARY FINDINGS Subcutaneous edema. Procedure Note Graham Smith DO - 03/31/2024 MR left foot without [...] phalanx. GRAHAM SMITH MD (Joe) Violette Acharya PA-C IMG MRI ORDERABLES * ECHO COMPLETE (03/27/2024 11:41 AM CDT) LVEF 55-60% CARDIOLOGY RESULTS Anatomical Region Laterality Modality Echocardiography 03/27/2024 10:3 5 AM CDT Narrative 03/27/2024 3:05 PM CDT [id number]^BLANCA^GAEL^JULIETTE [facility] Echocardiography Laboratory [address] [place] [address] Name: RAFFY MONTGOMERY : 1940 Study Date: 03/27/2024 10:35 AM Age: 83 yrs Gender: Male Patient Location: [facility] Reason For Study: S/P CABG (coronary [...] Procedure Note Denzel Gunderson MD - 03/27/2024 [id number]^BLANCA^GAEL^JULIETTE [facility] Echocardiography Laboratory [address] [place] [address] Name: RAFFY MONTGOMERY : 1940 Study Date: 03/27/2024 10:35 AM Age: 83 yrs Gender: Male Patient Location: [facility] Reason For Study: S/P CABG (coronary [...] Critical ASHU GONZALEZ MD Gael Sullivan MD G US ORDERABLES * NM Lexiscan stress test [...] rest on 03/19/2024. Nuclear Study Quality The quality liaison images demonstrate subdiaphragmatic radiotracer activity interference. 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) Color Urine Light Yellow Colorless, Straw, Light Yellow, Yellow 11/29/2022 3:26 PM [facility] Appearance Urine Clear Clear 11/29/19 23 3:26 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 LABORATORY Glucose Urine Negative Negative mg/dL 11/29/2022 3:26 PM [facility] Bilirubin Urine Negative Negative 3 3:26 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 LABORATORY Ketones Urine Negative Negative mg/dL 11/29/2022 3:26 PM [facility] Specific Lafe Urine 1.040(H) 1.003 - 1.035 11/29/2022 3:26 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 LABORATORY Blood Urine Negative Negative 11/29/2022 3:26 PM [facility] pH Urine 7.0 5.0 - 7.0 11/29/2022 3:26 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 [facility] Protein Albumin Urine Negative Negative mg/dL 11/29/2022 3:26 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 LABORATORY Urobilinogen Urine Normal Normal, 2.0 mg/dL 11/29/2022 3:26 PM [facility] Nitrite Urine Negative Negative 11/29/2022 3:26 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 LABOR[facility]ORY Leukocyte Esterase Urine Negative Negative 11/29/2022 3:26 PM [facility] Mucus Urine Present(A) None Seen /LPF 11/29/2022 3:26 PM [facility] RBC Urine 1 <=2 /HPF 11/29/2022 3:26 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 LABORATORY WBC Urine 2 <=5 /HPF 11/29/2022 3:26 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 LABORATORY Hyaline Casts Urine 1 <=2 /LPF 11/29/2022 3:26 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 LABORATORY Urine URINE SPECIMEN OBTAINED BY CLEAN CATCH PROCEDURE / Unknown Non-blood Collection / Unknown 11/29/2022 2:34 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 11/29/2022 2:43 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 Narrative LABORATORY - 11/29/2022 3:26 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 Urine Culture not indicated Remigio Loomis MD LAB - URINE ORDERABL ES LABORATORY [facility] Acute Care Lab [address], [address] [place] [address], [facility] [phone] * Lipid panel reflex to direct LDL [...] Cervantes MD LAB - BLOOD ORD ERABLES [facility] Acute Care Lab [address] floor, [address] [place] [address], [facility] [phone] * Albumin Random Urine Quant FUTURE 1yr (03/28/2017 9:58 AM CDT) Creatinine Urine 158 mg/dL [facility] Albumin Urine mg/L 17 mg/L [facility] Albumin Urine mg/g Cr 10.63 0 - 17 mg/g Cr [facility] Urine specimen (specimen) 03/28/2017 9:58 AM CDT 03/28/2017 9:59 AM CDT Navarro Trejo MD LAB - URINE ORD ERABLES [facility] [address] [place] [address], [facility] [phone] from Last 3 Months or Most Recently Relevant to Health Maintenance Advance Directives For more information, please contact: [phone] * Full Code (Latest Code Status on [...] or legal decision maker available Care Teams Last Sorter Relationship Specialty [place] [address] [place] [address] PCP - General Family Medicine 03/29/22 [facility] ([facility] ([place]) 05/29/19 Jairon Sofia MD [address] [place] [address] Urology 09/09/19 Lesvia Aguilar, RN Personal Advocate & Liaison (PAL) Family Medicine 06/20/21 [place] [address] [place] [address] Assigned PCP 01/01/22 [place] [address] [facility] [address] [place], [place] [address] Assigned Musculoskeletal Provider 03/24/23 Mariza Green, ERICK [address] [place], [place] [address] Nurse Practitioner Nurse Practitioner 04/09/23 [place] [address] [facility] [address] [place], [place] [address] Cardiovascular Disease 12/21/23 Gael Sullivan MD [address] [place] [address] Assigned Heart and Vascular Provider 03/11/24
--- OUTSIDE RECORDS SUMMARY | 2024-05-10 22:41 | XMS_ITS | Encounter Summary ---
Author Organization [place] Address [facility] [place] [address] Care Team Providers Care Sleeping Car Conductor Name Role Phone [facility] Unavailable Jairon Sofia MD Unavailable [phone] Lesvia Aguilar RN Unavailable Unavailable ElistMandi love MD Unavailable [phone] Mandi Mar MD Primary Care Provider [phone] Neela Baum MD Unavailable [phone] Mariza Green NP Unavailable [phone] Gael Sullivan MD Unavailable [phone] Gael Sullivan MD Unavailable [phone] Reason for Visit * Reason Onset Date Comments Back Pain 05/09/2024 Encounter Details Date Type Department Care Team (Late st Contact Info) Description 05/09/2024 [facility] [address] [place] [address] [place] [address] [place] [address] Back Pain Social History Tobacco Use Types Packs/Day Years [...] in an abandoned building, in an overnight custodial, or couch-surfing.) Yes 08/20/2023 Are you worried [...] encounter Miscellaneous Notes * Telephone Encounter - Page, Lesvia Rodriguez RN - 05/09/2024 9:11 AM CDT calling pt has bee struggling with on going back pain since fall on 04/25 he was seen in ER X 2. She states he has done well except as night when she has to get him out of bed which happens several times as he has t urinate. He has trouble breathing and complains of his belly hurting when I am pulling him up she states once he is up these symptoms clear. He does well in his chair doing the day, it is a lift chair so she does not need to pull him up. Pt is getting lumbar injection on 05/12 and has started lovenox today in preporation for this. They are concerned this about the symptoms and do NOT want this injection to be cancelled. We have waited a long time for this Per provider as symptoms are only with movement sounds like muscular. Could try urinal over night so that he does not need to be pulled up multiple times. As long no symptoms during rest can continueand monitor. notified of plan, they do have urinal and will try this. PAL will call on Sunday and check with pt/ on Sunday. expressed understanding and acceptance of the plan. had no further questions at this time. Advised can call back to clinic at any time with concerns. Message handled by Nurse Triage with [facility] - provider name: Patricia Mar MD . Lesvia Aguilar, RN documented in this encounter Plan of Treatment Upcoming Encounters Date Type Department Care Team (Late st Contact Info) Description 06/09/2024 10:00 AM CDT Office Visit [facility] [address] [place] [phone] [place] [address] [place] [address] documented as of this encounter Visit Diagnoses Not on filedocumented in this encounter Additional Health Concerns Assessment Noted Time PHQ-9 Depression Total Score: 3 09/10/20 23 9:51 AM CDT documented as of this encounter Care Teams Sleeping Car Conductor Relationship Specialty [place] [address] [place] [address] PCP - General Family Medicine 03/29/22 [facility] ([facility]), ([place]) 05/29/19 Jairon Sofia MD [address] [place] [address] Urology 09/09/19 Lesvia Aguilar, RN Personal Advocate & Liaison (PAL) Family Medicine 06/20/21 [place] [address] [place] [address] Assigned PCP 01/01/22 [place] [address] [facility] [address] [place], [place] [address] Assigned Musculoskeletal Provider 03/24/23 [place] [address] [place] [address] Nurse Practitioner Nurse Practitioner 04/09/23 [place] [address] [facility], [facility] [address] [place], [place] [address] Cardiovascular Disease 12/21/23 Gael Sullivan MD [address] [place] [address] Assigned Heart and Vascular Provider 03/11/24 documented as of this encounter
--- OUTSIDE RECORDS SUMMARY | 2024-05-10 22:42 | XMS_ITS | Encounter Summary ---
Author Organization [place] Address [address] [place] [address] Care Team Providers Care Pc Tech Name Role Phone [facility] Unavailable + [phone] Jairon Sofia MD Unavailable [phone] Lesvia Aguilar RN Unavailable Unavailable [facility] MD Unavailable [phone] Mandi Mar MD Primary Care Provider [phone] Neela Baum MD Unavailable [phone] Mariza Green NP Unavailable [phone] Gael Sullivan MD Unavailable [phone] Gael Sullivan MD Unavailable [phone] Encounter Details Date Type Department Care Team (Latest Contact Info) Description 04/25/2024 Travel Social History Tobacco Use Types Packs/Day Years [...] Date Recorded Do you have housing? (Ivonne nunez is defined as stable permanent housing and does not include staying ouside in a car, in a tent, in an abandoned building, in an overnight jail, or couch-surfing.) Yes 08/20/2023 Are you worried [...] on file documented as of this encounter Plan of Treatment Upcoming Encounters Date Type Department Care Team (Late st Contact Info) Description 06/09/2024 10:00 AM CDT Office Visit [facility] [address] [place] [phone] [place] [address] [place] [address] documented as of this encounter Visit Diagnoses Not on filedocumented in this encounter Additional Health Concerns Assessment Noted Time PHQ-9 Depression Total Score: 3 09/10/20 9:51 AM CDT documented as of this encounter Care Teams Pc Tech Relationship Specialty [place] [address] [place] [address] PCP - General Family Medicine 03/29/22 [facility] ([facility]), ([place]) 05/29/19 Jairon Sofia MD [address] [place] [address] Urology 09/09/19 Lesvia Aguilar, RN Personal Advocate & Liaison (PAL) Family Medicine 06/20/21 [place] [address] [place] [address] Assigned PCP 01/01/22 [place] [address] [facility], [facility] [address] [place] [address] Assigned Musculoskeletal Provider 03/24/23 [place] [address] [place] [address] Nurse Practitioner Nurse Practitioner 04/09/23 [place] [address] [place], [facility] [address] [place] [address] Cardiovascular Disease 12/21/23 Gael Sullivan MD [address] [place] [address] Assigned Heart and Vascular Provider 03/11/24 documented as of this encounter
--- OUTSIDE RECORDS SUMMARY | 2024-05-10 22:42 | XMS_ITS | Encounter Summary ---
Author Organization [place] Address [facility]0 [facility] [place] [address] Care Team Providers Care Procurement Officer Name Role Phone [facility] Unavailable Jairon Sofia MD Unavailable [phone] Lesvia Aguilar RN Unavailable Unavailable Mandi Mar MD Unavailable [phone] Mandi Mar MD Primary Care Provider [phone] Neela Baum MD Unavailable [phone] Mariza Green NP Unavailable [phone] Gael Sullivan MD Unavailable [phone] Gael Sullivan MD Unavailable [phone] Encounter Details Date Type Department Care Team (Late st Contact Info) Description 04/22/2024 [facility] [address] [place] [phone] [place] [address] [place] [address] Social History Tobacco Use Types Packs/Day Years [...] in an abandoned building, in an overnight assisted, or couch-surfing.) Yes 08/20/2023 Are you worried [...] Description 06/09/2024 10:00 AM CDT Office Visit [facility] [address] [place] [address] [place] [address] [place] [address] documented as of this encounter Procedures Procedure Name Priority Date/Time Associated Diagnosis Comments INR (EXTERNAL RESULT) Routine 04/22/2024 12:00 AM CDT documented in this encounter Results * INR (External Result) (04/22/2024 12:00 AM CDT) INR HOME MONITORING 2.1 2.000 - 3.000 [employer] 04/22/2024 Narrative [employer] - 04/22/2024 11:32 AM CDT Mandi Mar MD LAB - HIM EXTERNA L RESULT Performing Organization Address City/State/[facility] Co de Phone Number [employer] [address] [place] [address] documented in this encounter Visit Diagnoses Not on filedocumented in this encounter Additional Health Concerns Assessment Noted Time PHQ-9 Depression Total Score: 3 09/10/20 23 9:51 AM CDT documented as of this encounter Care Teams Procurement Officer Relationship Specialty [place] [address] [place] [address] PCP - General Family Medicine 03/29/22 [facility]Y ([facility]), ([place]) 05/29/19 Jairon Sofia MD [address] [place] [address] [place] [address] Urology 09/09/19 Lesvia Aguilar, RN Personal Advocate & Liaison (PAL) Family Medicine 06/20/21 [place] [address] [place] [address] Assigned PCP 01/01/22 [place] [address] [facility], [facility], [place] [address] [place] [address] Assigned Musculoskeletal Provider 03/24/23 [place] [address] [place] [address] Nurse Practitioner Nurse Practitioner 04/09/23 [place] [address] [facility] [place] [address] [place] [address] Cardiovascular Disease 12/21/23 Gael Sullivan MD [address] [facility] [address] [place] [address] Assigned Heart and Vascular Provider 03/11/24 documented as of this encounter
--- OUTSIDE RECORDS SUMMARY | 2024-05-10 22:42 | XMS_ITS | Encounter Summary ---
Author Organization [place] Address [facility] [place] [address] Care Team Providers Care Replanter Name Role Phone [facility] Unavailable + [phone] Jairon Sofia MD Unavailable [phone] Lesvia Aguilar RN Unavailable Unavailable [facility] MD Unavailable [phone] Mandi Mar MD Primary Care Provider [phone] Neela Bamu MD Unavailable [phone] Mariza Green NP Unavailable [phone] Gael Sullivan MD Unavailable [phone] Gael Sullivan MD Unavailable [phone] Encounter Details Date Type Department Care Team (Latest Contact Info) Description 04/29/2024 Anticoagulation Therapy Visit [facility] [address] [place] [phone] José Miguel Ponce, GEOFF Atrial fibrillation, unspecified type (H) (Primary Dx); longterm current use of 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 with INR goal of 2.0-3.0; 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), unspecified mechanism (H) Social History Tobacco Use Types Packs/Day Years [...] in an abandoned building, in an overnight mcfp, or couch-surfing.) Yes 08/20/2023 Are you worried [...] on file documented as of this encounter Progress Notes * José Miguel Ponce, RN - 04/29/2024 6:03 PM CDT ANTICOAGULATION MANAGEMENT Raffy Montgomeyr 83 year old male is on warfarin with supratherapeutic INR result. (Goal INR 2.0-3.0) Recent labs: (last 7 days) 04/29/24 0000 INR 3.5* ASSESSMENT Source(s): Chart Review and Patient/Caregiver Call Warfarin doses taken: Warfarin taken as instructed Diet: Pt appetite has been decreased since he fell. Pt is very sore from fall. Medication/supplement changes: None noted New illness, injury, or hospitalization: Yes: Pt in ER on 04/25/24 for fall and 04/27/24 for abdominal pain. Workup showed musculoskeletal soreness. Signs or symptoms of bleeding or clotting: No Previous result: Therapeutic last 2(+) visits Additional findings: Upcoming surgery/procedure Pt is scheduled to have CM on 05/12/24, procedure plan in TE on 04/08/24. prefers to wait to go over procedure plan until next INR on 05/06/24 due to potential that he may not have it if current condition does not improve. PLAN Recommended plan for temporary change(s) affecting INR Dosing Instructions: hold dose then continue your current warfarin dose with next INR in 1 week Summary As of 04/29/2024 Full warfarin instructions: 04/29: Hold; Otherwise 6 mg every Mon, Wed, Fri; 4 mg all other days Next INR check: 05/06/2024 Telephone call with Terri who verbalizes understanding and agrees to plan Patient to recheck with home meter Education provided: Goal range and lab monitoring: goal range and significance of current result and Importance of therapeutic range Importance of notifying anticoagulation clinic for: changes in medications; a sooner lab recheck maybe needed and diarrhea, nausea/vomiting, reduced intake, cold/flu, and/or infections; a sooner lab recheck maybe needed Plan made per [facility] anticoagulation protocol José Miguel Ponce RN Anticoagulation Clinic 04/29/2024 Anticoagulation Episode Summary Current INR goal: 2.0-3.0 TTR: 71.3% (1 y) Target end date: Indefinite Send INR reminders to: ANTICOAG HOME MONITORING Indications 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] longterm current use of anticoagulant therapy (Resolved) [Z79.01] Atrial fibrillation unspecified type (H) [I48.91] 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 with INR goal of 2.0-3.0 [Z79.01] 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) unspecified mechanism (H) [I63.9] Comments: INR Home Monitor with [employer] Requesting a call with INR /16/23 Anticoagulation Care Providers Provider Role Specialty Phone number Mandi Mar MD Referring Family Medicine [phone] documented in this encounter Plan of Treatment Upcoming Encounters Date Type Department Care Team (Late st Contact Info) Description 06/09/2024 10:00 AM CDT Office Visit [address] [address] [place] [id number] [place] [address] documented as of this encounter Visit Diagnoses Diagnosis Atrial fibrillation, unspecified type (H)- Primary longterm current use of 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 with INR goal of 2.0-3.0 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), unspecified mechanism (H) documented in this encounter Additional Health Concerns Assessment Noted Time PHQ-9 Depression Total Score: 3 09/10/20 9:51 AM CDT documented as of this encounter Care Teams Replanter Relationship Specialty Start Date End Date Mand[place] [id number] [place] [address] PCP - General Family Medicine 03/29/22 [facility] ([facility]), ([place]) 05/29/19 Jairon Sofia MD [address] [address] Urology 09/09/19 Lesvia Aguilar, RN Personal Advocate & Liaison (PAL) Family Medicine 06/20/21 [place] [address] [place] [address] Assigned PCP 01/01/22 [place] [address] [facility], [facility] [address] [place] [address] Assigned Musculoskeletal Provider 03/24/23 [place] [address] [place] [address] Nurse Practitioner Nurse Practitioner 04/09/23 [place] [address] [facility] 140 [place] [address] Cardiovascular Disease 12/21/23 Gael Sullivan MD [address] [facility] [address] [place], [place] [address] Assigned Heart and Vascular Provider 03/11/24 documented as of this encounter
--- OUTSIDE RECORDS SUMMARY | 2024-05-10 22:42 | XMS_ITS | Encounter Summary ---
Author Organization [place] Address [facility] [place] [address] Care Team Providers Care Experimental Psychologist Name Role Phone [facility] Unavailable [phone] Jairon Sofia MD Unavailable [phone] Lesvia Aguilar RN Unavailable Unavailable [facility] Unavailable [phone] Mandi Mar MD Primary Care Provider [phone] Neela Baum MD Unavailable [phone] Mariza Green NP Unavailable [phone] Gael Sullivan MD Unavailable [phone] Gael Sullivan MD Unavailable [phone] Encounter Details Date Type Department Care Team (Latest Contact Info) Description 04/28/2024 Documentation Only [facility] [address] [place] [phone] Shawna Bunn RN Atrial fibrillation, unspecified type [...] in an abandoned building, in an overnight intermediate, or couch-surfing.) Yes 08/20/2023 Are you worried [...] as of this encounter Progress Notes * Shawna Bunn RN - 04/28/2024 1:26 PM CDT ANTICOAGULATION MANAGEMENT: Discharge Review Raffy Montgomery chart reviewed for anticoagulation continuity of care Emergency room visit on 04/27/24 for fall at home, musculoskeletal pain. Discharge disposition: Home Results: Recent labs: (last 7 days) 04/22/24 0000 04/25/24 1126 04/27/24 1728 INR 2.1 2.59* 2.95* Anticoagulation inpatient management: not applicable Anticoagulation discharge instructions: Warfarin dosing: home regimen continued Bridging: No INR goal change: No Medication changes affecting anticoagulation: No Additional factors affecting anticoagulation: Yes: increased pain or inflammation can increase INR PLAN Recommend to check INR on 04/29/24 Spoke with Terri Anticoagulation Calendar updated Shawna Bunn RN documented in this encounter Plan of Treatment Upcoming Encounters Date Type Department Care Team (Late st Contact Info) Description 06/09/2024 10:00 AM CDT Office Visit [address] [address] [place] [address] [place] [address] documented as of this encounter Visit Diagnoses Diagnosis Atrial fibrillation, unspecified type (H)- Primary 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 with INR goal of 2.0-3.0 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), unspecified mechanism (H) documented in this encounter Additional Health Concerns Assessment Noted Time PHQ-9 Depression Total Score: 3 09/10/20 23 9:51 AM CDT documented as of this encounter Care Teams Experimental Psychologist Relationship Specialty [place] [address] [place] [address] PCP - General Family Medicine 03/29/22 [facility] ([facility] ([place]) 05/29/19 Jairon Sofia MD [address] [address] Urology 09/09/19 Lesvia Aguilar, RN Personal Advocate & Liaison (PAL) Family Medicine 06/20/21 [place] [address] [place] [address] Assigned PCP 01/01/22 [place] [address] [facility] [address] [place] [address] Assigned Musculoskeletal Provider 03/24/23 [place] [address] [place], [place] [address] Nurse Practitioner Nurse Practitioner 04/09/23 [place] [address] [facility] [address] [place], [place] [address] Cardiovascular Disease 12/21/23 Gael Sullivan MD [address] [facility] [address] [place], [place] [address] Assigned Heart and Vascular Provider 03/11/24 documented as of this encounter
--- OUTSIDE RECORDS SUMMARY | 2024-05-10 22:42 | XMS_ITS | Encounter Summary ---
Author Organization [place] Address [facility] [place] [address] Care Team Providers Care Rn Faculty Name Role Phone [facility] Unavailable [phone] Jairon Sofia MD Unavailable [phone] Lesvia Aguilar RN Unavailable Unavailable ElistMandi love MD Unavailable [phone] Mandi Mar MD Primary Care Provider [phone] Neela Baum MD Unavailable [phone] Mariza Green NP Unavailable [phone] Gael Sullivan MD Unavailable [phone] Gael Sullivan MD Unavailable [phone] Reason for Visit * Reason Onset Date Comments Back Pain 05/08/2024 Encounter Details Date Type Department Care Team (Late st Contact Info) Description 05/08/2024 [facility] [address] [place] [address] [place] [address] [place] [address] Back Pain Social History Tobacco [...] in an abandoned building, in an overnight fpc, or couch-surfing.) Yes 08/20/2023 Are you worried [...] Encounter - Page, Lesvia Rodriguez RN - 05/08/2024 8:23 AM CDT Pt's calling he continues to have back pain and she is going to take him to chiropractor todayto see if this is helpful. The [place] has been helpful but makes him very drowsy. He does have appt for lumbar injection of 05/12. will follow up with PAL after injection Lesvia Aguilar RN documented in this encounter Plan of Treatment Upcoming Encounters Date Type Department Care Team (Late st Contact Info) Description 06/09/2024 10:00 AM CDT Office Visit [facility] [address] [place] [phone] [place] [address] [place] [address] documented as of this encounter Visit Diagnoses Not on filedocumented in this encounter Additional Health Concerns Assessment Noted Time PHQ-9 Depression Total Score: 3 09/10/20 23 9:51 AM CDT documented as of this encounter Care Teams Rn Faculty Relationship Specialty [place] [address] [place] [address] PCP - General Family Medicine 03/29/22 [facility] ([facility] ([place]) 05/29/19 Jairon Sofia MD [address] [address] Urology 09/09/19 Lesvia Aguilar, RN Personal Advocate & Liaison (PAL) Family Medicine 06/20/21 [place] [address] [place] [address] Assigned PCP 01/01/22 [place] [address] [facility], [facility] [address] [place] [address] Assigned Musculoskeletal Provider 03/24/23 [place] [address] [place] [address] Nurse Practitioner Nurse Practitioner 04/09/23 [place] [address] [facility] [address] [place] [address] Cardiovascular Disease 12/21/23 Gael Sullivan MD [address] [facility] [address] [place] [address] Assigned Heart and Vascular Provider 03/11/24 documented as of this encounter
--- OUTSIDE RECORDS SUMMARY | 2024-05-10 22:42 | XMS_ITS | Encounter Summary ---
Author Organization [place] Address [facility] [place] [address] Care Team Providers Care Cable Hooker Name Role Phone [facility] Unavailable Jairon Sofia MD Unavailable [phone] Lesvia Aguilar RN Unavailable Unavailable ElistMandi love MD Unavailable [phone] Mandi Mar MD Primary Care Provider [phone] Neela Baum MD Unavailable [phone] Mariza Green NP Unavailable [phone] Gael Sullivan MD Unavailable [phone] Gael Sullivan MD Unavailable [phone] Reason for Visit * Reason Onset Date Comments Anticoagulation 05/06/2024 Encounter Details Date Type Department Care Team (Late st Contact Info) Description 05/06/2024 [facility] [address] [place] [address] [place] [address] [place] [address] Anticoagulation Social History Tobacco Use Types Packs/Day Years [...] in an abandoned building, in an overnight mcc, or couch-surfing.) Yes 08/20/2023 Are you worried [...] encounter Miscellaneous Notes * Telephone Encounter - Isa Osullivan RN - 05/06/2024 5:14 PM CDT Please refer to Acc encounter for 05/06 for patient follow up * Telephone Encounter - Carmen Mcelroy - 05/06/2024 4:34 PM CDT Patient returning call to INR nurse but no answer at number listed. Please call patient back at [phone] documented in this encounter Plan of Treatment Upcoming Encounters Date Type Department Care Team (Late st Contact Info) Description 06/09/2024 10:00 AM CDT Office Visit [facility] [address] [place] [phone] [place] [address] [place] [address] documented as of this encounter Visit Diagnoses Not on filedocumented in this encounter Additional Health Concerns Assessment Noted Time PHQ-9 Depression Total Score: 3 09/10/20 23 9:51 AM CDT documented as of this encounter Care Teams Cable Hooker Relationship Specialty [place] [address] [place] [address] PCP - General Family Medicine 03/29/22 [facility] ([facility] ([place]) 05/29/19 Jairon Sofia MD [address] [facility] [address] [place] [address] Urology 09/09/19 Lesvia Aguilar, GEOFF Personal Advocate & Liaison (PAL) Family Medicine 06/20/21 [place] [address] [place] [address] Assigned PCP 01/01/22 [place] [address] [facility] [address] [place] [address] Assigned Musculoskeletal Provider 03/24/23 [place] [address] [place] [address] Nurse Practitioner Nurse Practitioner 04/09/23 [place] [address] [facility] [address] [place] [address] Cardiovascular Disease 12/21/23 Gael Sullivan MD [address] [facility] [address] [place] [address] Assigned Heart and Vascular Provider 03/11/24 documented as of this encounter
--- OUTSIDE RECORDS SUMMARY | 2024-05-10 22:42 | XMS_ITS | Encounter Summary ---
Author Organization [place] Address [facility] [place] [address] Care Team Providers Care Long Chain Beamer Name Role Phone [facility] Unavailable Jairon Sofia MD Unavailable [phone] Lesvia Aguilar RN Unavailable Unavailable Mandi Mar MD Unavailable [phone] Mandi Mar MD Primary Care Provider [phone] Neela Baum MD Unavailable [phone] Mariza Green NP Unavailable [phone] Gael Sullivan MD Unavailable [phone] Gael Sullivan MD Unavailable [phone] Encounter Details Date Type Department Care Team (Late st Contact Info) Description 04/29/2024 [facility] [address] [place] [phone] [place] [address] [place] [address] Social History Tobacco Use Types [...] in an abandoned building, in an overnight long-term, or couch-surfing.) Yes 08/20/2023 Are you worried [...] Description 06/09/2024 10:00 AM CDT Office Visit [facility] [address] [place] [address] [place] [address] [place] [address] documented as of this encounter Procedures Procedure Name Priority Date/Time Associated Diagnosis Comments INR (EXTERNAL RESULT) Routine 04/29/2024 12:00 AM CDT documented in this encounter Results * (ABNORMAL) INR (External Result) (04/29/2024 12:00 AM CDT) INR HOME MONITORING 3.5(H) 2.000 - 3.000 [employer] 04/29/2024 Narrative [employer] - 04/29/2024 1:59 PM CDT Mandi Mar MD LAB - HIM EXTERNA L RESULT Performing Organization Address City/State/[facility] Co de Phone Number [employer] [address] [place] [address] documented in this encounter Visit Diagnoses Not on filedocumented in this encounter Additional Health Concerns Assessment Noted Time PHQ-9 Depression Total Score: 3 09/10/20 23 9:51 AM CDT documented as of this encounter Care Teams Long Chain Beamer Relationship Specialty [place] [address] [place] [address] PCP - General Family Medicine 03/29/22 [facility] ([facility] ([place]) 05/29/19 Jairon Sofia MD [address] [place] [address] [place] [address] Urology 09/09/19 Lesvia Aguilar, RN Personal Advocate & Liaison (PAL) Family Medicine 06/20/21 [place] [address] [place] [address] Assigned PCP 01/01/22 [place] [address] [facility] [address] [place] [address] Assigned Musculoskeletal Provider 03/24/23 [place] [address] [place] [address] Nurse Practitioner Nurse Practitioner 04/09/23 [place] [address] [facility] [address] [place] [address] Cardiovascular Disease 12/21/23 Gael Sullivan MD [address] [facility] [address] [place] [address] Assigned Heart and Vascular Provider 03/11/24 documented as of this encounter
--- OUTSIDE RECORDS SUMMARY | 2024-05-10 22:42 | XMS_ITS | Encounter Summary ---
Author Organization [place] Address [facility] [place] [address] Care Team Providers Care Public Weigher Name Role Phone [facility] Unavailable Jairon Sofia MD Unavailable [phone] Lesvia Aguilar RN Unavailable [facility]available [facility] Unavailable [phone] Mandi Mar MD Primary Care Provider [phone] Neela Baum MD Unavailable [phone] Mariza Green NP Unavailable [phone] Gael Sullivan MD Unavailable [phone] Gael Sullivan MD Unavailable [phone] Reason for Visit * Reason Onset Date Comments Anticoagulation 04/25/2024 Encounter Details Date Type Department Care Team (Late st Contact Info) Description 04/25/2024 [facility] [address] [place] [address] Karen Ferreira RN Anticoagulation Social History Tobacco Use Types Packs/Day [...] in an abandoned building, in an overnight half-way, or couch-surfing.) Yes 08/20/2023 Are you worried [...] encounter Miscellaneous Notes * Telephone Encounter - Karen Ferreira RN - 04/25/2024 3:27 PM CDT ANTICOAGULATION MANAGEMENT: Discharge Review Raffy Montgomery chart reviewed for anticoagulation continuity of care Emergency room visit on 04/25/24 for fall. Discharge disposition: Home Results: Recent labs: (last 7 days) 04/22/24 0000 04/25/24 1126 INR 2.1 2.59* Anticoagulation inpatient management: not applicable Anticoagulation discharge instructions: Warfarin dosing: home regimen continued Bridging: No INR goal change: No Medication changes affecting anticoagulation: No Additional factors affecting anticoagulation: Yes: falls risk - following up with PCP PLAN No adjustment to anticoagulation plan needed Recommended follow up is scheduled Patient not contacted No adjustment to Anticoagulation Calendar was required Karen Ferreira RN documented in this encounter Plan of Treatment Upcoming Encounters Date Type Department Care Team (Late st Contact Info) Description 06/09/2024 10:00 AM CDT Office Visit [facility] [address] [place] [address] [place] [address] [place] [address] documented as of this encounter Visit Diagnoses Not on filedocumented in this encounter Additional Health Concerns Assessment Noted Time PHQ-9 Depression Total Score: 3 09/10/20 23 9:51 AM CDT documented as of this encounter Care Teams Public Weigher Relationship Specialty [place] [address] [place] [address] PCP - General Family Medicine 03/29/22 [facility] ([facility]), ([place]) 05/29/19 Jairon Sofia MD [address] [place] [address] [place] [address] Urology 09/09/19 Lesvia Aguilar RN Personal Advocate & Liaison (PAL) Family Medicine 06/20/21 [place] [address] [place] [address] Assigned PCP 01/01/22 [place] [address] [facility], [facility] [address] [facility] [place] [address] Assigned Musculoskeletal Provider 03/24/23 [place] [address] [place] [address] Nurse Practitioner Nurse Practitioner 04/09/23 [place] [address] [facility] [address] [place] [address] Cardiovascular Disease 12/21/23 Gael Sullivan MD [address] [facility] [address] [place] [address] Assigned Heart and Vascular Provider 03/11/24 documented as of this encounter
--- OUTSIDE RECORDS SUMMARY | 2024-05-10 22:42 | XMS_ITS | Encounter Summary ---
Author Organization [place] Address On license of [facility]0 [facility] [place] [address] Care Team Providers Care Public Health Epidemiologist Name Role Phone [facility] Unavailable [phone] Jairon Sofia MD Unavailable [phone] Lesvia Aguilar RN Unavailable [facility]available [facility] Unavailable [phone] Mandi Mar MD Primary Care Provider [phone] Neela Baum MD Unavailable [phone] Mariza Green NP Unavailable [phone] Gael Sullivan MD Unavailable [phone] Gael Sullivan MD Unavailable [phone] Encounter Details Date Type Department Care Team (Latest Contact Info) Description 04/22/2024 Anticoagulation Therapy Visit [facility] [address] [place] [phone] Kaur Jean-Baptiste RN Atrial fibrillation, unspecified type (H) (Primary Dx); retirement current use of 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 with INR goal [...] in an abandoned building, in an overnight senior care, or couch-surfing.) Yes 08/20/2023 Are you worried [...] as of this encounter Progress Notes * Kaur Jean-Baptiste RN - 04/22/2024 12:12 PM CDT ANTICOAGULATION MANAGEMENT Raffy Montgomery 83 year old male is on warfarin with therapeutic INR result. (Goal INR 2.0-3.0) Recent labs: (last 7 days) 04/22/24 0000 INR 2.1 ASSESSMENT Source(s): Chart Review and Patient/Caregiver Call Warfarin doses taken: Warfarin taken as instructed Diet: No new diet changes identified Medication/supplement changes: None noted New illness, injury, or hospitalization: No Signs or symptoms of bleeding or clotting: No Previous result: Subtherapeutic Additional findings: Upcoming procedure scheduled on 05/12/[address] [facility] for nerve block. TE androute to [facility] for procedure plan on 04/08/24. PLAN Recommended plan for no diet, medication or health factor changes affecting INR Dosing Instructions: Continue your current warfarin dose with next INR in 2 weeks Summary As of 04/22/2024 Full warfarin instructions: 6 mg every Mon, Wed, Fri; 4 mg all other days Next INR check: 05/06/2024 Telephone call with spouse, Terri who verbalizes understanding and agrees to plan Patient to recheck with home meter Education provided: Please call back if any changes to your diet, medications or how you've been taking warfarin Contact [phone] with any changes, questions or concerns. 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 with INR goal of 2.0-3.0 [Z79.01] 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) unspecified mechanism (H) [I63.9] Comments: INR Home Monitor with Demetrius Requesting a call with INR [id number] Anticoagulation Care Providers Provider Role Specialty Phone number Mandi Mar MD Referring Family Medicine [phone] documented in this encounter Plan of Treatment Upcoming Encounters Date Type Department Care Team (Late st Contact Info) Description 06/09/2024 10:00 AM CDT Office Visit [facility] [address] [place] [address] [place] [address] [place] [address] documented as of this encounter Visit Diagnoses Diagnosis Atrial fibrillation, unspecified type (H)- 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 with 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 goal of 2.0-3.0 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), unspecified mechanism (H) documented in this encounter Additional Health Concerns Assessment Noted Time PHQ-9 Depression Total Score: 3 09/10/20 9:51 AM CDT documented as of this encounter Care Teams Public Health Epidemiologist Relationship Specialty [place] [address] [place] [address] PCP - General Family Medicine 03/29/22 [facility] ([facility]), ([place]) 05/29/19 Jairon Sofia MD [address] [address] Urology 09/09/19 Lesvia Aguilar, GEOFF Personal Advocate & Liaison (PAL) Family Medicine 06/20/21 [place] [address] [place] [address] Assigned PCP 01/01/22 [place] [address] [facility] [address] [place] [address] Assigned Musculoskeletal Provider 03/24/23 [place] [address] [place] [address] Nurse Practitioner Nurse Practitioner 04/09/23 [place] [address] [facility] [address] [place] [address] Cardiovascular Disease 12/21/23 Gael Sullivan MD [address] [facility] [address] [place] [id number] Assigned Heart and Vascular Provider 03/11/24 documented as of this encounter
--- OUTSIDE RECORDS SUMMARY | 2024-05-10 22:42 | XMS_ITS | Encounter Summary ---
Author Organization [place] Address [facility]0 [facility] [place] [address] Care Team Providers Care Catering Associate Name Role Phone [facility] Unavailable [phone] Jairon Sofia MD Unavailable [phone] Lesvia Aguilar RN Unavailable Unavailable [facility] Unavailable [phone] Mandi Mar MD Primary Care Provider [phone] Neela Baum MD Unavailable [phone] Mariza Green NP Unavailable [phone] Gael Sullivan MD Unavailable [phone] Gael Sullivan MD Unavailable [phone] Encounter Details Date Type Department Care Team (Latest Contact Info) Description 05/06/2024 Anticoagulation Therapy Visit [facility] [address] [place] [phone] Isa Osullivan RN 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 (Goal INR 2.0-3.0) Recent labs: (last 7 days) 05/06/24 0000 INR 2.2 ASSESSMENT Source(s): Chart Review and Patient/Caregiver Call Warfarin doses taken: Warfarin taken as instructed Diet: No new diet changes identified Medication/supplement changes: Patient taking Tylenol Prn for back pain post fall 04/27/24 New illness, injury, or hospitalization: No Signs or symptoms of bleeding or clotting: No Previous result: Supratherapeutic Patient scheduled for surgery and procedure hold to start 05/07/24. Patient has not decided if he will go through with procedure as he is having unmanaged back pain. He will be seeing chiropractor tomorrow. Patient will contact [facility] following appointment with decision on surgery. Advised patient to contact PCP with update on patient pain status. If decision is not made until AM at the latest patient will HOLD warfarin on 05/07/24. Procedure plan in 04/08/24 encounter PLAN Recommended plan for ongoing change(s) affecting INR Dosing Instructions: Continue your current warfarin dose with next INR in 1 week Summary As of 05/06/2024 Full warfarin instructions: 6 mg every Mon, Wed, Fri; 4 mg all other days Next INR check: 05/13/2024 Telephone call with Art who agrees to plan and repeated back plan correctly Patient to recheck with home meter Education provided: Please call back if any changes to your diet, medications or how you've been taking warfarin Goal range and lab monitoring: goal range and significance of current result Plan made per [facility] anticoagulation protocol Isa Osullivan RN Anticoagulation Clinic 05/06/2024 Anticoagulation Episode Summary Current INR goal: 2.0-3.0 TTR: 70.6% (1 y) Target end date: Indefinite Send INR reminders to: [facility] HOME MONITORING Indications 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 Hold and bridge plan reviewed with spouse Terri as outlined. Erx for lovenox sent to pharmacy. Reviewed plan with Terri day by day and have Terri repeat back correctly. No mychart. Advised to call [facility] RN if she still have questions or unsure. Phone number provided. Terri reports writing everything down and has no further questions at this time. Pre-Procedure: Hold warfarin for 5 days, until after procedure startin05/07/2024 Enoxaparin (Lovenox) 100 mg subq Q 12 hrs (1 mg/kg Q 12 hrs for CrCl >= 60 ml/min and BMI <= 40 kg/m2) Start enoxaparin: 05/09/2024 Last dose of enoxaparin prior to procedure: 05/11/2024 AM (~24 hours prior to procedure) Post-Procedure: Resume warfarin dose if okay with provider doing procedure on night of procedure, 05/12/2024 PM: mg& 05/13/2024 8mg Resume enoxaparin (Lovenox) ~ 24 hrs post procedure when okay with provider doing procedure. Continue until INR >= 2.0 Recheck INR ~5 days after resuming warfarin Kaur Jean-Baptiste RN [facility]. documented in this encounter Plan of Treatment Upcoming Encounters Date Type Department Care Team (Late st Contact Info) Description 06/09/2024 10:00 AM CDT Office Visit [facility] [address] [place] [address] [place] [address] [place] [address] documented as of this encounter Visit Diagnoses Diagnosis Atrial fibrillation, unspecified type (H)- Primary correction current use of 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 with INR goal of 2.0-3.0 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), unspecified mechanism (H) documented in this encounter Additional Health Concerns Assessment Noted Time PHQ-9 Depression Total Score: 3 09/10/20 23 9:51 AM CDT documented as of this encounter Care Teams Catering Associate Relationship Specialty [place] [address] [place] [address] PCP - General Family Medicine 03/29/22 [facility] ([facility]), ([place]) 05/29/19 Jairon Sofia MD [address] [address] Urology 09/09/19 Lesvia Aguilar RN Personal Advocate & Liaison (PAL) Family Medicine 06/20/21 [place] [address] [place] [address] Assigned PCP 01/01/22 [place] [address] [address] [address] Assigned Musculoskeletal Provider 03/24/23 [place] [address] [place] [address] Nurse Practitioner Nurse Practitioner 04/09/23 [place] [address] [facility] [address] [place] [address] Cardiovascular Disease 12/21/23 Gael Sullivan MD [address] [facility] [address] [place] [address] Assigned Heart and Vascular Provider 03/11/24 documented as of this encounter
--- OUTSIDE RECORDS SUMMARY | 2024-05-10 22:42 | XMS_ITS | Encounter Summary ---
Author Organization [place] Address Critical access hospital0 [facility] [address] Care Team Providers Care Coal Trimmer Name Role Phone [facility] Unavailable Jairon Sofia MD Unavailable [phone] Lesvia Aguilar RN Unavailable Unavailable ElistMandi love MD Unavailable [phone] Mandi Mar MD Primary Care Provider [phone] Neela Baum MD Unavailable [phone] Mariza Green NP Unavailable [phone] Gael Sullivan MD Unavailable [phone] Gael Sullivan MD Unavailable [phone] Reason for Visit * Reason Onset Date Comments Refill Request 04/11/2024 atorvastatin (LI PITOR) 80 MG tablet Encounter Details Date Type Department Care Team (Late st Contact Info) Description 04/11/2024 Refill [facility] [address] [place] [address] [place] [address] [place] [address] Refill Request (atorvastatin (LIPITOR) 80 MG tablet) Social History Tobacco Use Types Packs/Day Years [...] encounter Miscellaneous Notes * Telephone Encounter - Lesvia Aguilar RN - 04/16/2024 11:37 AM CDT Spoke with Terri, they are NOT going with see Dr Tamez only tried as they wanted to see if he wouldqualify for medical marijuana. He did not qualify. Has AWV scheduled for May. Has several PT visits and an injection for his ankle coming up. Ok for RF on the atorvastatin as he is out? Lesvia Aguilar, RN * Telephone Encounter - Mandi Mar MD - 04/11/2024 1:53 PM CDT I believe he established with another PCP - can call to clarify documented in this encounter Plan of Treatment Upcoming Encounters Date Type Department Care Team (Late st Contact Info) Description 06/09/2024 10:00 AM CDT Office Visit [facility] [address] [place] [phone] [place] [address] [place] [address] documented as of this encounter Visit Diagnoses Diagnosis 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), unspecified mechanism (H) documented in this encounter Additional Health Concerns Assessment Noted Time PHQ-9 Depression Total Score: 3 09/10/20 23 9:51 AM CDT documented as of this encounter Care Teams Coal Trimmer Relationship Specialty [place] [address] [place] [address] PCP - General Family Medicine 03/29/22 [facility] ([facility]), ([place]) 05/29/19 Jairon Sofia MD [address] [address] Urology 09/09/19 Lesvia Aguilar, RN Personal Advocate & Liaison (PAL) Family Medicine 06/20/21 [place] [address] [place] [address] Assigned PCP 01/01/22 [place] [address] [facility] [address] [place] [address] Assigned Musculoskeletal Provider 03/24/23 [place] [address] [place] [address] Nurse Practitioner Nurse Practitioner 04/09/23 [place] [address] [facility] [address] [place], [place] [address] Cardiovascular Disease 12/21/23 Gael Sullivan MD [address] [facility] [address] [place] [address] Assigned Heart and Vascular Provider 03/11/24 documented as of this encounter
--- OUTSIDE RECORDS SUMMARY | 2024-05-10 22:42 | XMS_ITS | Encounter Summary ---
Author Organization [place] Address [address] [place] [address]. [place] [address] Care Team Providers Care Contracting Manager Name Role Phone [facility] [place] Unavailable Jairon Sofia MD Unavailable [phone] Lesvia Aguilar RN Unavailable [facility]available [facility] Unavailable [phone] Mandi Mar MD Primary Care Provider [phone] Neela Baum MD Unavailable [phone] Mariza Green NP Unavailable [phone] Gael Sullivan MD Unavailable [phone] Gael Sullivan MD Unavailable [phone] Reason for Visit * Reason Comments Abdominal Pain Encounter Details Date Type Department Care Team (Late st Contact Info) Description 04/27/2024 5:17 PM CDT - 04/27/2024 7:49 PM T [facility] Emergency Dept [address] [place] [address] Ady Tomlinson MD EMERGENCY PHYSICIAN [facility] [address] [place] [address] Fall at home, initial encounter; Musculoskeletal pain; Closed compression fracture of body of L1 vertebra (H) Discharge Disposition: Home or Self Care Social History Tobacco Use Types Packs/Day Years [...] in an abandoned building, in an overnight residential, or couch-surfing.) Yes 08/20/2023 Are you worried [...] on file documented as of this encounter Last Filed Vital Signs Vital Sign Reading [...] Mass Index 26.96 04/27/2024 4:43 PM CDT documented in this encounter Discharge Instructions * Attachments The following attachments cannot be sent through Care Everywhere. * Musculoskeletal Pain (Finnish) documented in this encounter Medications at Time of Discharge Medication Sig Dispensed Refills Start Date End Date atorvastatin (LIPITOR) 80 MG tabletIndications:Cereb rovascular accident (CVA), unspecified mechanism (H) Take 1 tablet (80 mg) by mouth daily 90 tablet 1 04/17/2024 baclofen (LIORESAL) 10 MG tabletIndications:Cereb rovascular accident (CVA), unspecified mechanism (H) TAKE 1/2 (ONE-HALF) TABLET BY MOUTH AT BEDTIME *DO NOT STOP ABRUPTLY DUE TO RISK OF WITHDRAWL* 45 tablet 3 04/15/2024 buPROPion (WELLBUTRIN XL) 150 MG 24 hr tabletIndications:Moder ate major depression (H) 1 tab every am 90 tablet 1 01/22/2024 cilostazol (PLETAL) 100 MG tabletIndications:Cereb rovascular accident (CVA), unspecified mechanism (H) Take 1 tablet (100 mg) by mouth 2 times daily 180 tablet 3 01/28/2024 citalopram (CELEXA) 20 MG tabletIndications:Moder ate major depression (H) TAKE 1/2 (ONE-HALF) TABLET BY MOUTH THREE TIMES A WEEK 18 tablet 1 12/11/2023 diltiazem ER COATED BEADS (CARDIZEM CD/CARTIA XT) 120 MG 24 hr capsuleIndications:Atri al fibrillation, unspecified type (H) Take 1 capsule (120 mg) by mouth daily 90 capsule 3 04/09/2023 docusate sodium (COLACE) 100 MG capsuleIndications:Anem ia, unspecified type Take 1 capsule (100 mg) by mouth 2 times daily 180 capsule 3 04/09/2023 enoxaparin ANTICOAGULANT (LOVENOX) 100 MG/ML syringeIndications: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 with INR goal of 2.0-3.0,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), unspecified mechanism (H),Atrial fibrillation, unspecified type (H) Inject 1 mL (100 mg) Subcutaneous every 12 hours 28 mL 1 05/08/2024 ferrous sulfate (FEROSUL) 325 (65 Fe) MG tabletIndications:Iron deficiency Take 1 tablet (325 mg) by mouth daily (with breakfast) 90 tablet 04/09/2023 furosemide (LASIX) 20 MG tabletIndications:Essen tial hypertension Take 1 tablet (20 mg) by mouth daily TAKE 1 TABLET BY MOUTH ONCE DAILY NEEDED FOR LEG SWELLING 90 tablet 3 04/09/2023 losartan (COZAAR) 25 MG tabletIndications:Essen tial hypertension Take 1 tablet (25 mg) by mouth daily 90 tablet 3 09/10/2023 Melatonin 10 MG TABS tablet Take 10 mg by mouth At Bedtime Multiple Vitamins-Minerals (MULTIVITAMIN ADULT PO) Take 1 tablet by mouth daily order for DMEIndications:[place]phe[place] ma 1: Gradient Compression Wraps; 2: cast Boots; 3; BLE 20-30 mm Hg compression stockings; knee high; 4: Velcro compression garments BLE's 1 each 06/05/2019 pantoprazole (PROTONIX) 40 MG EC tabletIndications:Gastr ointestinal hemorrhage associated with gastric ulcer Take 1 tablet (40 mg) by mouth daily 90 tablet 1 01/17/2024 pregabalin (LYRICA) 50 MG capsuleIndications:[place] neuropathy Take 1 capsule (50 mg) by mouth 2 times daily 180 capsule 1 09/25/2023 tamsulosin (FLOMAX) 0.4 MG capsuleIndications:Enla rged prostate Take 1 capsule by mouth once daily 90 capsule 2 12/18/2022 Thiamine HCl (VITAMIN B-1) 250 MG TABSIndications:Cerebro vascular accident (CVA), unspecified mechanism (H) Take 1 each by mouth daily 30 tablet 06/25/2017 warfarin ANTICOAGULANT (COUMADIN) 4 MG tabletIndications:Atria l fibrillation, unspecified type (H) 6 mg ( 4 mg x 1.5 tabs) every Sunday, Sun, Sun then 4 mg ( 4 mg x 1 tab ) all other days of the weekAdjust as directed by INR clinic. 122 tablet 1 12/11/2023 documented as of this encounter ED Notes * Yulia Winter RN - 04/27/2024 7:48 PM CDT Pt discharged, IV removed, AVS given, pt went home with his own wheelchair. * Leigh Galvan RN - 04/27/2024 5:32 PM CDT Bed: ED14 Expected date: Expected time: Means of arrival: Comments: FT1 * Alona Means RN - 04/27/2024 4:41 PM CDT Pt arrives with family for right abdominal pain that has been continuing since he was seen on Sunday after a fall. Pt was told to come back if pain consisted. Triage Assessment (Adult) Row Name 04/27/24 1641 Triage Assessment Airway WDL WDL Respiratory WDL Respiratory WDL WDL Cardiac WDL Cardiac WDL WDL * Ady Tomlinson MD - 04/27/2024 4:35 PM CDT Emergency Department Note History of Present Illness Chief Complaint Abdominal Pain HPI Raffy Montgomery is a 83 year old male who is anticoagulated on Coumadin presents with abdominal pain. Patient's notes that he fell onto the bed after trying to get into bed two days ago. Was seen in ER please refer to EMR note lab and imaging completed and reveiwed. Patient describes that his abdominal pain is primarily localized in the right lower quadrant. Patient also describes that he has lower back pain. NO HASTINGS or vision changes. No neck pain or extremity weakness upper or lower. No hematomas development on chest or abdomen. No weakness in lower extremities. No numbness or saddle anesthesia. says sore and hard to get up and down with position changes. No SOB. No NVD. No blood loss in urine or stool. Independent Historian as detailed above. 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 No distress. Head: Atraumatic. Eyes: Conjunctivae and EOM are normal. No scleral icterus. Neck: Normal range of motion. Neck supple. No midline tenderness Cardiovascular: Normal rate, regular rhythm, normal heart sounds and intact distal pulses. Pulmonary/Chest: Breath sounds normal. No respiratory distress. Abdominal: Soft. Bowel sounds are normal. No distension. No tenderness. No rebound or guarding. No hematomas or bruising. Musculoskeletal: Normal range of motion. No midline spine pain. Upper and lower extremity strength and ROM intact. No sensation loss. Skin: Warm and dry. No rash noted. Not diaphoretic. Diagnostics Lab Results Labs Ordered and Resulted from Time of ED Arrival to Time of ED Departure COMPREHENSIVE METABOLIC PANEL - Abnormal Result Value Sodium 133 (*) Potassium 4.2 Carbon Dioxide (CO2) 27 Anion Gap 11 Urea Nitrogen 14.3 Creatinine 1.18 (*) GFR Estimate 62 Calcium 10.0 Chloride 95 (*) Glucose 129 (*) Alkaline Phosphatase 119 AST 25 ALT 20 Protein Total 7.3 Albumin 4.1 Bilirubin Total 0.8 INR - Abnormal INR 2.95 (*) CBC WITH PLATELETS AND DIFFERENTIAL WBC Count 10.6 RBC Count 4.95 Hemoglobin 14.9 Hematocrit 44.3 MCV 90 MCH 30.1 MCHC 33.6 RDW 13.7 Platelet Count 213 % Neutrophils 75 % Lymphocytes 14 % Monocytes 10 % Eosinophils 1 % Basophils 0 % Immature Granulocytes 0 NRBCs per 100 WBC 0 Absolute Neutrophils 7.8 Absolute Lymphocytes 1.5 Absolute Monocytes 1.1 Absolute Eosinophils 0.2 Absolute Basophils 0.0 Absolute Immature Granulocytes 0.0 Absolute NRBCs 0.[address] Chest/Abdomen/Pelvis w Contrast Final Result IMPRESSION: 1. Chronic appearing compression fracture deformity of the L1 vertebral body. No other fractures identified. 2. Cholelithiasis. 3. Numerous low-attenuation lesions within the spleen. These are nonspecific but can be seen after granulomatous disease. 4. Previous abdominal aortic aneurysm repair with endograft stent. The stent is patent. 5. Prostate gland enlargement. 6. Moderate elevation of the right hemidiaphragm with right basilar atelectasis. Scattered scarringof the lungs without pulmonary contusion or pleural fluid. 7. Evidence for prior granulomatous disease right lung. Independent Interpretation CT torso no ptx or hemothorax. No large softissues fluid collections or pneumonia. Abd bowel gas noobstruction no intraabdominal bleeds free fluid. ED Course Medications Administered Medications sodium chloride 0.9% BOLUS 1,000 mL (1,000 mLs Intravenous $New Bag 04/27/24 1730) iopamidol (ISOVUE-370) solution 100 mL (100 mLs Intravenous $Given 04/27/24 1829) sodium chloride (PF) 0.9% PF flush 65 mL (65 mLs Intravenous $Given 04/27/24 1835) Procedures Procedures Discussion of Management None Social Determinants of Health adding to complexity of care None ED Course ED Course as of 04/27/24 192 [place] Apr 27, 2024 1726 I obtained history and examined the patient as noted above Medical Decision Making / Diagnosis MDM 83 YOM falls after low mechanism fall with continued right sided torso pain. No new headache. No neck pain or spine pain. No external signs of bruising or hematomas. On exam no elev WBC and no signs of bleeding. INR 2.95. CT of torso no acute surgical emergency. I believ with the extensive workups in the recent past including today this more musculoskeletal soreness than acute orhtopedic or trauma surgical abnl. Old L1 compression fracture no red flags for back or lower extremities. Supportive care at home and rec pcp follow up. Disposition The patient was discharged. ICD-10 Codes: ICD-10-CM 1. Fall at home, initial encounter W19.XXXA Y92.009 2. Musculoskeletal pain M79.18 3. Closed compression fracture of body of L1 vertebra (H) S32.010A chronic Discharge Medications New Prescriptions No medications on file Scribe Disclosure: I, Anthony Nehalmichoacano, am serving as a scribe at 5:30 PM on 04/27/2024 to document services personally performed by Ady Tomlinson MD based on my observations and the provider's statements to me. Ady Tomlinson MD 04/27/241924 documented in this encounter Plan of Treatment Upcoming Encounters Date Type Department Care Team (Late st Contact Info) Description 06/09/2024 10:00 AM CDT Office Visit [facility] [address] [place] [address] [phone] Mand[place] Mar [place] [id number] [place] [address] [phone] documented as of this encounter Procedures Procedure Name Priority Date/Time Associated Diagnosis Comments CT CHEST/ABDOMEN/PELVIS W CONTRAST STAT 04/27/2024 6:48 PM CDT EXTRA TUBE STAT 04/27/2024 5:28 PM CDT EXTRA RED TOP TUBE STAT 04/27/2024 5: 28 PM CDT CBC WITH PLATELETS AND DIFFERENTIAL STAT 04/27/2024 5:28 PM CDT CBC WITH PLATELETS & DIFFERENTIAL STAT 04/27/2024 5:28 PM CDT INR STAT 04/27/2024 5:28 PM CDT COMPREHENSIVE METABOLIC PANEL STAT 04/27/2024 5:28 PM CDT documented in this encounter Results * CT Chest/Abdomen/Pelvis w Contrast (04/27/2024 6:48 [...] CDT EXAM: CT CHEST/ABDOMEN/PELVIS W CONTRAST LOCATION: [facility] DATE: 04/27/2024 INDICATION: Right sided torso pain [...] 04/27/2024 EXAM: CT CHEST/ABDOMEN/PELVIS W CONTRAST LOCATION: [facility] DATE: 04/27/2024 INDICATION: Right sided torso pain [...] Red Top Tube (04/27/2024 5:28 PM CDT) Hold Specimen [facility] 04/27/2024 6:46 PM CDT [facility] Blood BLOOD SPECIMEN / Unknown Venipuncture / Unknown 04/27/2024 5:28 PM CDT 04/27/2024 5:33 PM CDT Ady Tomlinson MD LAB - BLOOD ORDERABL ES [facility] Acute Care Lab [address] Lab (1st floor, no room number) [place] [address] * CBC with platelets and differential (04/27/2024 5:28 PM CDT) WBC Count 10.6 4.0 - 11.0 10e3/uL [...] LAB - BLOOD ORDERABL ES [facility] Acute Care Lab [address] [facility] Lab (1st floor, no room number) [place] [address], [facility] * (ABNORMAL) INR (04/27/2024 5:28 PM CDT) INR 2.95(H) 0.85 - 1.15 04/27/2024 5:47 PM CDT [facility] Blood BLOOD SPECIMEN / Unknown Venipuncture / Unknown 04/27/2024 5:28 PM CDT 04/27/2024 5:33 PM CDT Ady Tomlinson MD LAB - BLOOD ORDERABL ES [facility] Acute Care Lab [address] Lab (1st floor, no room number) [place] [address] * (ABNORMAL) Comprehensive metabolic panel (04/27/2024 5:28 [...] LAB - BLOOD ORDERABL ES [facility] Acute Care Lab [address] [facility] Lab (1st floor, no room number) [place] [address], [facility] documented in this encounter Visit Diagnoses Diagnosis Fall at home, initial encounter Musculoskeletal pain Mylagia and myositis, unspecified Closed compression fracture of body of L1 vertebra (H) documented in this encounter Administered Medications Inactive Administered Medications - up to 3 most recent administrations Medication Order MAR Action Action Date Dose Rate Site iopamidol (ISOVUE-370) solution 100 mL 100 mL, Intravenous, ONCE, On 04/27/24 at 1830, For 1 dose $Given 04/27/2024 6:29 PM CDT 100 mLs sodium chloride (PF) 0.9% PF flush 65 mL 65 mL, Intravenous, ONCE, On 04/27/24 at 1830, For 1 dose $Given 04/27/2024 6:35 PM CDT 65 mLs sodium chloride 0.9% BOLUS 1,000 mL Intravenous, 1,000 mL, ONCE, at 1,000 mL/hr, Administer over 1 Hours, On 04/27/24 at 1720, For 1 dose $New Bag 04/27/2024 5:30 PM CDT 1,000 mLs 1000 mL/hr documented in this encounter Active and Recently Administered Medications Times are shown in CDT. Scheduled Medication Order 04/25/2024 04/26/2024 04/27/2024 iopamidol (ISOVUE-370) solution 100 mL (COMPLETED) 100 mL, Intravenous, ONCE, On 04/27/24 at 1830, For 1 dose 1829 ($Given - Provi moris: Indira Arredondo ARRT) sodium chloride (PF) 0.9% PF flush 65 mL (COMPLETED) 65 mL, Intravenous, ONCE, On 04/27/24 at 1830, For 1 dose 1835 ($Given - Provi moris: Indira Arredondo, ARRT) sodium chloride 0.9% BOLUS 1,000 mL (COMPLETED) Intravenous, 1,000 mL, ONCE, at 1,000 mL/hr, Administer over 1 Hours, On 04/27/24 at 1720, For 1 dose 1730 ($New Bag - Pro vider: Leigh Galvan RN)[id number] (Stopped - Provider: Yulia Winter RN) documented in this encounter Additional Health Concerns Assessment Noted Time PHQ-9 Depression Total Score: 3 09/10/20 23 9:51 AM CDT documented as of this encounter Care Teams Contracting Manager Relationship Specialty [place] [address] [place] [address] PCP - General Family Medicine 03/29/22 [facility] [place] [facility] ([facility] ([place]) 05/29/19 Jairon Sofia MD [address] [place] [address] [place] [address] Urology 09/09/19 Lesvia Aguilar, RN Personal Advocate & Liaison (PAL) Family Medicine 06/20/21 [place] [address] [place] [address] Assigned PCP 01/01/22 [place] [address] [facility] [address] [place] [address] Assigned Musculoskeletal Provider 03/24/23 [place] [address] [place] [address] Nurse Practitioner Nurse Practitioner 04/09/23 [place] [address] [facility] [address] [place] [address] Cardiovascular Disease 12/21/23 Gael Sullivan MD [address] [place] [address] [place] [id number] Assigned Heart and Vascular Provider 03/11/24 documented as of this encounter
--- OUTSIDE RECORDS SUMMARY | 2024-05-10 22:42 | XMS_ITS | Encounter Summary ---
Author Organization [place] Address [facility] [place] [address] Care Team Providers Care Account Installer Name Role Phone [facility] Unavailable Jairon Sofia MD Unavailable [phone] Lesvia Aguilar RN Unavailable Unavailable Mandi Mar MD Unavailable [phone] Mandi Mar MD Primary Care Provider [phone] Neela Baum MD Unavailable [phone] Mariza Green NP Unavailable [phone] Gael Sullivan MD Unavailable [phone] Gael Sullivan MD Unavailable [phone] Encounter Details Date Type Department Care Team (Late st Contact Info) Description 05/06/2024 [facility] Anticoagulation Clinic [address] [place] [phone] [place] [address] [place] [address] Social History Tobacco Use Types [...] Description 06/09/2024 10:00 AM CDT Office Visit [facility] [id number] [place] [phone] [place] [address] [place] [address] documented as of this encounter Procedures Procedure Name Priority Date/Time Associated Diagnosis Comments INR (EXTERNAL RESULT) Routine 05/06/2024 12:00 AM CDT documented in this encounter Results * INR (External Result) (05/06/2024 12:00 AM CDT) INR HOME MONITORING 2.2 2.000 - 3.000 [email or web address] 05/06/2024 Narrative [employer] - 05/06/2024 12:21 PM CDT Mandi Mar MD LAB - HIM EXTERNA L RESULT Performing Organization Address City/State/[facility] de Phone Number [email or web address] [address] [place] [address] documented in this encounter Visit Diagnoses Not on filedocumented in this encounter Additional Health Concerns Assessment Noted Time PHQ-9 Depression Total Score: 3 09/10/20 23 9:51 AM CDT documented as of this encounter Care Teams Account Installer Relationship Specialty [place] [address] [place] [address] PCP - General Family Medicine 03/29/22 [facility] ([facility] ([place]) 05/29/19 Jairon Sofia MD [address] [place] [address] [place] [address] Urology 09/09/19 Lesvia Aguilar, RN Personal Advocate & Liaison (PAL) Family Medicine 06/20/21 [place] [address] [facility] [place] [address] Assigned PCP 01/01/22 [place] [address] [facility] [address] [place] [address] Assigned Musculoskeletal Provider 03/24/23 [place] [address] [place] [address] Nurse Practitioner Nurse Practitioner 04/09/23 [place] [address] [facility] [address] [place] [address] Cardiovascular Disease 12/21/23 Gael Sullivan MD [address] [facility] [address] [place] [address] Assigned Heart and Vascular Provider 03/11/24 documented as of this encounter
--- OUTSIDE RECORDS SUMMARY | 2024-05-10 22:42 | XMS_ITS | Encounter Summary ---
Author Organization [place] Address [facility] [place] [address] Care Team Providers Care Beverage Sales Consultant Name Role Phone [facility] Unavailable Jairon Sofia MD Unavailable [phone] Lesvia Aguilar RN Unavailable Unavailable ElistMandi love MD Unavailable [phone] Mandi Mar MD Primary Care Provider [phone] Neela Baum MD Unavailable [phone] Mariza Green NP Unavailable [phone] Gael Sullivan MD Unavailable [phone] Gael Sullivan MD Unavailable [phone] Reason for Visit * Reason Onset Date Comments Hospital F/U 04/28/2024 Encounter Details Date Type Department Care Team (Late st Contact Info) Description 04/28/2024 [facility] [address] [place] [address] [place] [id number] [place] [address] Hospital F/U Social History Tobacco Use Types Packs/Day Years [...] encounter Miscellaneous Notes * Telephone Encounter - Lauren, Lesvia Rodriguez RN - 04/29/2024 3:42 PM CDT Pt's calling had virtual visit with Eliazar and they are prescribing small RX for low dose oxy something' She was cautioned this will like cause drowsiness so make sure to watch pt and make sure he is using walker PAL will follow up end of week FYI to PCP Lesvia Aguilar RN * Telephone Encounter - Lesvia Aguilar RN - 04/28/2024 1:52 PM CDT Phone appointment tomorrow with Eliazar she will follow up with PAL after pain clinic visit Lesvia Aguilar RN * Telephone Encounter - Mandi Mar MD - 04/28/2024 12:16 PM CDT If Eliazar can help, start there * Telephone Encounter - Lesvia Aguilar RN - 04/28/2024 9:14 AM CDT Spoke with pt's he is really struggling with back pain and is not getting any relief. He has been up all night. See both ER reports for work up. Giving him tramadol 50 mg 4 X day with tylenol EX 2 tabs each time. Using icy hot and ice and heat. She is exhausted herself from caring for him and being up all night. She does not think she can even get him in the car to get hm to the office for an OV. Advised to call Eliazar to see if he can increase tramadol dosing. Anything more she can do for pain control? Lesvia Aguilar RN * Telephone Encounter - Lesvia Aguilar RN - 04/28/2024 9:09 AM CDT Transitions of Care Outreach Chief Complaint Patient presents with Hospital F/U Most Recent Admission Date: 04/27/2024 Most Recent Admission Diagnosis: Most Recent Discharge Date: 04/27/2024 Most Recent Discharge Diagnosis: Fall at home, initial encounter - W19.XXXA, Y92.009 Musculoskeletal pain - M79.18 Closed compression fracture of body of L1 vertebra (H) - S32.010A Transitions of Care Assessment Discharge Assessment How are your symptoms? (Red Flag symptoms escalate to triage hotline per guidelines): Unchanged Does the patient have their discharge instructions? : Yes Does the patient have questions regarding their discharge instructions? : Yes (see comment) (per pt is NOT getting any pain relief and not sleeping) Were you started on any new medications or were there changes to any of your previous medications? : No Does the patient have all of their medications?: Yes Do you have questions regarding any of your medications? : Yes (see comment) (anything better for pain, using tramadol 3 -4 X day with 1000 mg Tylenol 3-4 X day) Do you have all of your needed medical supplies or equipment (DME)? (i.e. oxygen tank, CPAP, cane, etc.): No - What equipment or supplies are needed? Follow up Plan Discharge Follow-Up Discharge follow up appointment scheduled in alignment with recommended follow up timeframe or Transitions of Risk Category? (Low = within 30 days; Moderate= within 14 days; High= within 7 days): Yes( does not think she can even get pt in car to get to clinic) Future Appointments Date Time Provider Department Center 06/09/2024 10:00 AM Mandi Mar MD [facility] Outpatient Plan as outlined on AVS reviewed with patient. For any urgent concerns, please contact our 24 hour nurse triage line: [phone] Lesvia Aguilar RN documented in this encounter Plan of Treatment Upcoming Encounters Date Type Department Care Team (Late st Contact Info) Description 06/09/2024 10:00 AM CDT Office Visit [facility] [id number] [place] [phone] Mandi Mar MD [id number] [place] [id number] documented as of this encounter Visit Diagnoses Not on filedocumented in this encounter Additional Health Concerns Assessment Noted Time PHQ-9 Depression Total Score: 3 09/10/20 23 9:51 AM CDT documented as of this encounter Care Teams Beverage Sales Consultant Relationship Specialty [place] [address] [place] [address] PCP - General Family Medicine 03/29/22 [facility] ([place]) 05/29/19 Jairon Sofia MD [address] [facility] [address] [place] [address] Urology 09/09/19 Lesvia Aguilar, RN Personal Advocate & Liaison (PAL) Family Medicine 06/20/21 [place] [address] [place] [address] Assigned PCP 01/01/22 [place] [address] [facility] [address] [place] [address] Assigned Musculoskeletal Provider 03/24/23 [place] [address] [place] [address] Nurse Practitioner Nurse Practitioner 04/09/23 [place] [address] [facility] [address] [place] [address] Cardiovascular Disease 12/21/23 Gael Sullivan MD [address] [facility] [address] [place] [address] Assigned Heart and Vascular Provider 03/11/24 documented as of this encounter
--- OUTSIDE RECORDS SUMMARY | 2024-05-10 22:42 | XMS_ITS | Encounter Summary ---
Author Organization Sells Address [address] [place] [address]. [place] [address] Care Team Providers [employer] Ma[employer] Name Role Phone [facility] Unavailable Jairon Sofia MD Unavailable [phone] Lesvia Aguilar RN Unavailable Unavailable [facility] Unavailable [phone] Madni Mar MD Primary Care Provider [phone] Neela Baum MD Unavailable [phone] Mariza Green NP Unavailable [phone] Gael Sullivan MD Unavailable [phone] Gael Sullivan MD Unavailable [phone] Reason for Visit * Reason Comments Fall Encounter Details Date Type Department Care Team (Late st Contact Info) Description 04/25/2024 11:18 AM CDT - 04/25/2024 2:00 PM T [facility] Emergency Dept [address] [place] [address] Adrian Phillips MD [facility] [address] [place] [address] Fall, initial encounter; Contusion of right hip, initial encounter; Contusion of scalp, initial encounter Discharge Disposition: Hospice/Home Social History Tobacco Use Types Packs/Day Years [...] Sign Reading Time Taken Comments Blood Pressure 182/102 04/25/2024 1:41 PM CDT Pulse 78 04/25/2024 1:41 PM CDT Temperature 36.4 ??C (97.5 ??F) 04/25/2024 1:41 PM CD T Respiratory Rate - - Oxygen Saturation 92% 04/25/2024 1:41 PM CDT Inhaled Oxygen Concentration - - Weight - - Height - - Body Mass Index - - documented in this encounter Discharge Instructions * Discharge Instructions* Adrian Phillips MD - 04/25/2024 1:45 PM CDT No signs of a hip fracture or brain bleed today. In general, we do not like the use of tramadol in our elderly patients due to different rates metabolism and associated side effects. Talk to his doctor about trialing a low-dose opiate alternative such as oxycodone or norco. Return to emergency department for repeat falls, inability to walk, confusion, uncontrollable vomiting, or for any other concerns. Discharge Instructions Trauma You were seen today for an injury due to some kind of trauma (crash, fall, etc.). At this time, your provider has not found any dangerous injuries that require further care in the hospital today. However, some injuries may not show up until after you leave the Emergency Department. Generally, every Emergency Department visit should have a follow-up clinic visit with either a primary or a specialty clinic/provider. Please follow-up as instructed by your emergency provider today. Return to the Emergency Department right away if: You have abdominal (belly) pain or bruises, chest pain, pain in a new area, or pain that is gettingworse. You get short of breath. You develop a fever over 101??F. You have weakness in your arms or legs. You faint or you are very lightheaded. You have any new symptoms, you are feeling weak or unusually ill, or something worries you. Injuries to the brain are possible with any accident. Return right away if you have confusion, vomiting (throwing up) more than once, difficulty walking or a headache that is getting worse. If it is a child or person who cannot normally talk, bring him or her back if they seem to be behaving in an abnormal way. MORE INFORMATION: General Injuries: Aches and pains are usually worse the day after your accident, but should not be severe, and shouldstart getting better after that. Aches and pains are common in the neck and back. Injuries from your accident may prevent you from working. Follow-up with your regular provider to get a work note and to find out how long you will not be able to work. Pain medications for your injuries may make it unsafe for you to drive or operate machinery. Use ice to injured areas for the first one or two days. Apply a bag of ice wrapped in a cloth for about 15 minutes at a time. You can do this as often as once an hour. Do not sleep with an ice pack, since it can burn you. You can use non-prescription pain medicine such as acetaminophen (Tylenol??) or ibuprofen (Advil??,Motrin??, Nuprin??) if your emergency provider or your own provider told you this is okay. Tylenol?? (acetaminophen) is in many prescription medicines and non-prescription medicines--check all of your medicines to be sure you aren???t taking more than 3000 mg per day. Limit your activity for at least 1-2 days. Avoid doing things that hurt. You need to see your provider if any injured area is not back to normal in 1 week. Car Accident: You will likely be stiff and sore, particularly the following day. This should get better in 1-2 days. Return to the Emergency Department if the pain or discomfort is severe or gets worse. Be careful of shards of glass on your body or in your belongings. Fractures, Sprains, and Strains: Return to the Emergency Department right away if your injured area gets more painful, if the splintor dressing seems to be too tight, if it gets numb or tingly past the injury, or if the area past the injury gets pale, blue, or cold. Use your crutches if you were given them today. Do not put weight on the injured area until the pain is gone. Keep the injured area above the level of your heart while laying or sitting down. This well help lessen the swelling and the pain. You may use an elastic bandage (Juan?? Wrap) if it makes you more comfortable. Wrap it just tight enough to provide mild compression, and loosen it if you get swelling below the bandage. Splints: A splint put on in the Emergency Department is temporary. Your regular provider or orthopedic provider will remove it, and replace it as needed. Keep the splint dry. Cover it with a plastic bag when you wash. Even with a plastic bag, water can leak in, so do your best to keep the bag dry. If your splint does get wet, you should come back or see your provider to have it replaced. Do not put objects inside the splint to scratch. If there is an elastic bandage (Juan?? Wrap) holding the splint on this may be loosened a little to relieve pressure or pain. If pain continues return to the Emergency Department right away. Return if the splint starts cutting into your skin. Do not remove your splint by yourself unless told to by your provider. Wounds: Infections can follow many injuries. Watch for fevers, redness spreading from the wound, pus or stitches that open up. Return here or see your provider if these happen. There can always be glass, wood, dirt or other things in any wound. They will not always show up even on x-rays. If a wound does not heal, this may be why, and it is important to follow-up with your regular provider. Small pieces of glass or other materials may work their way out on their own. Cuts or scrapes may start to bleed after leaving the Emergency Department. If this happens, hold pressure on the bleeding area with a clean cloth or put pressure over the bandage. If the bleeding does not stop after you use constant pressure for 30 minutes, you should return to the Emergency Department for further treatment. Any bandage or dressing put on here should be removed in 12-24 hours, or as your provider instructs. Remove the dressing sooner if it seems too tight or painful, or if it is getting numb, tingly, or pale past the dressing. After you take off the dressing, wash the cut or scrape with soap and water once or twice a day. Apply an antibiotic ointment like Bacitracin (polypeptide antibiotic) to scrapes or cuts, and keep them covered with a Band-Aid?? or gauze if possible, until they heal up or until your stitches are taken out. Dermabond?? or Steri-Strips?? should be left alone and will come off by themselves. You do not needto apply an antibiotic ointment to these. Dissolving stitches should go away or fall out within about a week. Regular stitches (or stitches which have not dissolved) need to be taken out by your provider in clinic. Call today and schedule an appointment. Leave your stitches in for as long as you were told today. Most injuries are preventable! As your local emergency providers, we encourage you to: Wear your seat belt. Do not talk on your cell phone while driving. Do not read or send text messages while driving. Wear a bike or motorcycle helmet. Wear a helmet while skiing and snowboarding. Wear personal flotation devices at all times while on the water. Always have your child in a car seat. Do not allow children less than 12 years old to ride in the front seat. Go to the CDC website to find more information on preventing injures: http://www.cdc.gov/injury/index.html If you were given a prescription for medicine here today, be sure to read all of the information (including the package insert) that comes with your prescription. This will include important information about the medicine, its side effects, and any warnings that you need to know about. The pharmacist who fills the prescription can provide more information and answer questions you may have about the medicine. If you have questions or concerns that the pharmacist cannot address, please call or return to the Emergency Department. Remember that you can always come back to the Emergency Department if you are not able to see your regular provider in the amount of time listed above, if you get any new symptoms, or if there is anything that worries you. * Attachments The following attachments cannot be sent through Care Everywhere. * Hip Pain (Namibian) documented in this encounter Medications at Time [...] 3 04/09/2023 enoxaparin ANTICOAGULANT (LOVENOX) 100 MG/ML syringeIndications:senior living current use of 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 with INR goal [...] tablet 1 01/17/2024 pregabalin (LYRICA) 50 MG capsuleIndications:Carolina neuropathy Take 1 capsule (50 mg) by [...] as of this encounter ED Notes * Valorie Kaur RN - 04/25/2024 1:55 PM CDT Pt discharged home by senior mortgage underwriter. Stock Counter removed bot PIV. All discharge instructions explained by RN and pt and family communicated understanding. Pt looks well. Ambulatory with steady gait, minimal assistance required in getting pt out of bed. Transfer of care to family. * Marisol Talbot RN - 04/25/2024 11:19 AM CDT Arrives via EMS from home lives with family he fell last night struck head + thinners mentation at baseline pt blind. Left sided paralysis- from previous stroke family on way Triage Assessment (Adult) Row Name 04/25/24 1118 Triage Assessment Airway WDL WDL Respiratory WDL Respiratory WDL WDL Skin Circulation/Temperature WDL Skin Circulation/Temperature WDL WDL * Mandy Garcia RN - 04/25/2024 11:18 AM CDT Bed: ED02 Expected date: Expected time: Means of arrival: Comments: Red team * Adrian Phillips MD - 04/25/2024 11:18 AM CDT Emergency Department Note History of Present Illness Chief Complaint Fall HPI Raffy Montgomery is a 83 year old male on Coumadin with a history of hypertension, CAD, CVA, AFIB, and BPH who presents to the emergency department for evaluation of a fall. EMS reports that the patient fell yesterday around 2200 and hit the back of his head. They also noted a blood glucose of 186. Since the fall, patient endorses posterior headache and right hip pain. He denies any abdominal pain. EMS states that the patient has history of stroke, which has left him with left-side deficits. Independent Historian EMS personnel reports where noted above Review of External Notes Reviewed office visit from yesterday. Past Medical History Medical History and Problem List Blind CAD CVA AAA Anemia Anxiety AFIB BPH Choledocholithiasis CKD PVD GERD Hemiplegia and hemiparesis following cerebral infarction Tobacco use RUQ abdominal pain Hypertension GI bleed Left-sided weakness Mumps Depression Spider veins Transient cerebral ischemia Medications Lipitor Lioresal Wellbutrin Pletal Celexa Diltiazem Ultram Colace Lasix Cozaar Protonix Lyrica Flomax Coumadin Surgical History CV lower extremity angiogram left Endoscopic ultrasounds uppper gastrointestinal tract Endovascular aneurysm abdominal aorta Esophagoscopy gastroscopy duodenoscopy combined HC joss house keeper extremity artery each additional IR abdominal endovascular stent graft Testicle surgery Tonsillectomy Vasectomy ZSpringC joy w/o facetec FORAMOT/DSKC 11/20 VRT SEG lumbar Physical Exam Patient Vitals for the past 24 hrs: BP Pulse SpO2 04/25/24 1143 -- -- 98 % 04/25/24 1123 -- -- 91 % 04/25/24 1121 (!) 165/86 78 -- Physical Exam Nursing note and vitals reviewed. HENT: Mouth/Throat: Moist mucous membranes. Eyes: EOMI, nonicteric sclera Cardiovascular: Normal rate, regular rhythm, no murmurs, rubs, or gallops Pulmonary/Chest: Effort normal and breath sounds normal. No respiratory distress. No wheezes. No rales. Abdominal: Soft. Nontender, nondistended, no guarding or rigidity. Musculoskeletal: Normal range of motion. No midline C/T/L-spine tenderness. Patient able to ambulate with a walker without a limp. Neurological: Alert. Moves all extremities spontaneously. Skin: Skin is warm and dry. No rash noted. Diagnostics Lab Results Labs Ordered and Resulted from Time of ED Arrival to Time of ED Departure BASIC METABOLIC PANEL - Abnormal Result Value Sodium 136 Potassium 4.2 Chloride 97 (*) Carbon Dioxide (CO2) 26 Anion Gap 13 Urea Nitrogen 11.7 Creatinine 1.13 GFR Estimate 65 Calcium 9.6 Glucose 127 (*) INR - Abnormal INR 2.59 (*) CBC WITH PLATELETS AND DIFFERENTIAL - Abnormal WBC Count 10.7 RBC Count 5.02 Hemoglobin 15.1 Hematocrit 45.0 MCV 90 MCH 30.1 MCHC 33.6 RDW 13.6 Platelet Count 215 % Neutrophils 78 % Lymphocytes 11 % Monocytes 9 % Eosinophils 1 % Basophils 0 % Immature Granulocytes 1 NRBCs per 100 WBC 0 Absolute Neutrophils 8.4 (*) Absolute Lymphocytes 1.2 Absolute Monocytes 0.9 Absolute Eosinophils 0.1 Absolute Basophils 0.0 Absolute Immature Granulocytes 0.1 Absolute NRBCs 0.0 Imaging XR Pelvis and Hip Right 1 View Preliminary Result IMPRESSION: 1. Degenerative changes in the visualized spine. Mild osteoarthrosis of the SI joints. The hips appear normal and symmetric. 2. Diffuse bone demineralization. There is no evidence of fracture or osteonecrosis. 3. Extensive arterial calcifications and stents. Head CT w/o contrast Final Result IMPRESSION: 1. No acute intracranial pathology. 2. 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 CHAR MEYERS MD SYSTEM ID: [id number] Independent Interpretation I independently reviewed the right hip X-ray. I see no evidence of fracture/dislocation. I also independently reviewed the head CT. I see no evidence of intracranial hemorrhage. ED Course Discussion of Management None Social Determinants of Health adding to complexity of care None ED Course ED Course as of 04/25/24 1327 Fri Apr 25, 2024 1117 I obtained history and examined the patient as noted above. Red team was activated prior to ambulance arrival. 1118 Red team activation was deescalated. 1326 I rechecked the patient and explained findings. The patient is comfortable with discharge. Medical Decision Making / Diagnosis [facility] Diagnoses: None MIPS None MDM Raffy Montgomery is a 83 year old male who presents after a fall at home. Patient has history of multiple falls. He is anticoagulated. He is awake and alert and at his mental baseline. CT head is fortunately negative for hemorrhage. Family expresses concern for right hip pain, though patient has very reassuring exam. Imaging negative for fracture here as well. Patient ambulated with a walker without assistance. No evidence of urinary tract infection. Electrolytes unremarkable. No leukocytosis tosuggest simmering infection. At this time, no evidence of emergent pathology and patient is safe for discharge home. Discussed with patient's family at bedside and answered all their questions. Discussed with them that tramadol in general is not a preferred medication for pain for patient's age group. Recommended that they discuss further with patient's care team about different plan for pain control. Patient discharged in stable condition. Disposition The patient was discharged. ICD-10 Codes: ICD-10-CM 1. Fall, initial encounter W19.XXXA 2. Contusion of right hip, initial encounter S70.01XA 3. Contusion of scalp, initial encounter S00.03XA Scribe Disclosure: Prasanth Flores, am serving as a scribe program trainer for Melony Hobbs at 11:33 AM on 04/25/2024 Melony Flores am serving as a scribe at 11:33 AM on 04/25/2024 to document services personally performed by Adrian Phillips MD based on my observations and the provider's statements to me. Adrian Phillips MD 04/27/24 2867 documented in this encounter Plan of Treatment Upcoming Encounters Date Type Department Care Team (Late st Contact Info) Description 06/09/2024 10:00 AM CDT Office Visit [address] [phone] [place] [address] [place] [address] documented as of this encounter Procedures Procedure Name Priority Date/Time Associated Diagnosis Comments XR PELVIS AND HIP RIGHT 1 VIEW STAT 04/25/2024 12:[address] HEAD W/O CONTRAST STAT 04/25/2024 12:19 PM CDT EXTRA TUBE STAT 04/25/2024 11:26 AM CDT EXTRA RED TOP TUBE STAT 04/25/2024 11 :26 AM CDT EXTRA BLUE TOP TUBE STAT 04/25/2024 1 1:26 AM CDT CBC WITH PLATELETS AND DIFFERENTIAL STAT 04/25/2024 11:26 AM CDT CBC WITH PLATELETS & DIFFERENTIAL STAT 04/25/2024 11:26 AM CDT INR STAT 04/25/2024 11:26 AM CDT BASIC METABOLIC PANEL STAT 04/25/2024 11:26 AM CDT documented in this encounter Results * XR Pelvis and Hip Right 1 [...] and stents. CELESTINE SALOMON MD SYSTEM ID: ??[id number] Narrative 04/25/2024 1:31 PM CDT PELVIS AND [...] and stents. CELESTINE SALOMON MD SYSTEM ID: [id number] Adrian Phillips MD IMG DIAGNOSTIC IM AGING ORDERABLES * Head CT w/o contrast (04/25/2024 12:19 PM CDT) Anatomical Region Laterality Modality Head, SUBRAD CT NEURO, SUBRA D CT NEURO, UMP CT NEURO, RAD CT Computed Tomography Impressions 04/25/2024 12:36 PM CDT IMPRESSION: 1. No acute intracranial pathology. 2. 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 CHAR MEYERS MD SYSTEM ID: ??[id number] Narrative 04/25/2024 12:36 PM CDT EXAM: CT HEAD W/O CONTRAST ??04/25/2024 12:19 PM HISTORY: ??fall ,head trauma, on coumadin ?? COMPARISON: ??Brain MRI 11/29/2022 TECHNIQUE: Using multidetector thin collimation helical acquisition technique, axial, coronal and sagittal CT images from the skull base to the vertex were obtained without intravenous contrast. Coordinator Hotels (topogram) image(s) also obtained and reviewed. Dose [...] the vertex were obtained without intravenous contrast. Coordinator Hotels (topogram) image(s) also obtained and reviewed. Dose [...] occipital infarct. CHAR MEYERS MD SYSTEM ID: [id number] Adrian Phillips MD IMG CT ORDERABLES * Extra Red Top Tube (04/25/2024 11:26 AM CDT) Pathologist [facility] Hold Specimen [facility] 04/25/2024 12:46 PM CDT LABORATORY Blood BLOOD SPECIMEN / Unknown Venipuncture / Unknown 04/25/2024 11:26 AM CDT 04/25/2024 11:36 AM CDT Adrian Phillips MD LAB - BLOOD ORDER [facility] LABORAT[facility] Acute Care Lab [address] Lab (1st floor, no room number) [place] [id number] [place] [address] * Extra Blue Top Tube (04/25/2024 11:26 AM CDT) Hold Specimen RECEIVED. 04/25/2024 1:46 PM CDT [facility] LABORATORY Blood BLOOD SPECIMEN / Unknown Venipuncture / Unknown 04/25/2024 11:26 AM CDT 04/25/2024 11:36 AM CDT Adrian Phillips MD LAB - BLOOD ORDER KASEY [facility] LABORATORY [facility] Acute Care Lab [address] Lab (1st floor, no room number) [address] [place] [address] * (ABNORMAL) CBC with platelets and differential (04/25/2024 11:26 AM CDT) WBC Count 10.7 4.0 - 11.0 10e3/uL 04/25/2024 11:40 AM CDT [facility] RBC Count 5.02 4.40 - 5.90 10e6/uL 04/25/2024 11:40 AM CDT [facility] Hemoglobin 15.1 13.3 - 17.7 g/dL 04/25/2024 11:40 AM CDT [facility] Hematocrit 45.0 40.0 - 53.0 % 04/25/2024 11:40 AM CDT [facility] MCV 90 78 - 100 fL 04/25/2024 11:40 AM CDT [facility] MCH 30.1 26.5 - 33.0 pg 04/25/2024 11:40 AM CDT [facility] MCHC 33.6 31.5 - 36.5 g/dL 04/25/2024 11:40 AM CDT [facility] RDW 13.6 10.0 - 15.0 % 04/25/2024 11:40 AM CDT [facility] Platelet Count 215 150 - 450 10e3/uL 04/25/2024 11:40 AM CDT [facility] % Neutrophils 78 % 04/25/2024 11:40 AM CDT [facility] % Lymphocytes 11 % 04/25/2024 11:40 AM CDT [facility] % Monocytes 9 % 04/25/2024 11:40 AM CDT [facility] % Eosinophils 1 % 04/25/2024 11:40 AM CDT [facility] % Basophils 0 % 04/25/2024 11:40 AM CDT [facility] % Immature Granulocytes 1 % 04/25/2024 11:40 AM CDT [facility] NRBCs per 100 WBC 0 <1 /100 2 024 11:40 AM CDT [facility] Absolute Neutrophils 8.4(H) 1.6 - 8.3 10e3/uL 04/25/2024 11:40 AM CDT [facility] Absolute Lymphocytes 1.2 0.8 - 5.3 10e3/uL 04/25/2024 11:40 AM CDT [facility] Absolute Monocytes 0.9 0.0 - 1.3 10e3/uL 04/25/2024 11:40 AM CDT [facility] Absolute Eosinophils 0.1 0.0 - 0.7 10e3/uL 04/25/2024 11:40 AM CDT [facility] Absolute Basophils 0.0 0.0 - 0.2 10e3/uL 04/25/2024 11:40 AM CDT [facility] Absolute Immature Granulocytes 0.1 <=0.4 10e3/uL 04/25/2024 11:40 AM CDT [facility] Absolute NRBCs 0.0 10e3/uL 04/25/2024 11:40 AM CDT [facility] Blood BLOOD SPECIMEN / Unknown Venipuncture / Unknown 04/25/2024 11:26 AM CDT 04/25/2024 11:36 AM CDT Adrian Phillips MD LAB - BLOOD ORDER KASEY [facility] LAB[facility]AT[facility] Acute Care Lab [address] Lab (1st floor, no room number) [place] [address], [facility] * (ABNORMAL) INR (04/25/2024 11:26 AM CDT) INR 2.59(H) 0.85 - 1.15 04/25/2024 11:56 AM CDT [facility] LAB[facility]AT[facility] Blood BLOOD SPECIMEN / Unknown Venipuncture / Unknown 04/25/2024 11:26 AM CDT 04/25/2024 11:36 AM CDT Adrian Phillips MD LAB - BLOOD ORDER KASEY [facility] LAB[facility]AT[facility] Acute Care Lab [address] [facility] Lab (1st floor, no room number) [place] [address], [facility] * (ABNORMAL) Basic metabolic panel (BMP) (04/25/2024 11:26 AM CDT) [facility] Signature Sodium 136 135 - 145 mmol/L 04/25/2024 [...] Phillips MD LAB - BLOOD ORDER [facility] Acute Care Lab [address] Lab (1st floor, no room number) [place] [address], [facility] documented in this encounter Visit Diagnoses Diagnosis Fall, initial encounter Contusion of right hip, initial encounter Contusion of scalp, initial encounter documented in this encounter Additional Health Concerns Assessment Noted Time PHQ-9 Depression Total Score: 3 09/10/20 23 9:51 AM CDT documented as of this encounter Care Teams Motel Maid Relationship Specialty [place] [address] [place] [address] PCP - General Family Medicine 03/29/22 [facility] ([place]) 05/29/19 Jairon Sofia MD [address] [facility] [address] [place] [address] Urology 09/09/19 Lesvia Aguilar, RN Personal Advocate & Liaison (PAL) Family Medicine 06/20/21 [place] [address] [place] [address] Assigned PCP 01/01/22 [place] [address] [place] , [facility] [address] [place] [address] Assigned Musculoskeletal Provider 03/24/23 [place] [address] [place] [address] Nurse Practitioner Nurse Practitioner 04/09/23 [place] [address] [facility] [address] [place], [place] [address] Cardiovascular Disease 12/21/23 Gael Sullivan MD [address] [facility] [address] [place], [place] [id number] Assigned Heart and Vascular Provider 03/11/24 documented as of this encounter
--- OUTSIDE RECORDS SUMMARY | 2024-05-10 22:42 | XMS_ITS | Encounter Summary ---
Author Organization [place] Address [address] [facility] [place] [address] Care Team Providers Care Senior Qa Automation Engineer Name Role Phone [facility], [facility] Unavailable + [phone] Jairon Sofia MD Unavailable [phone] Lesvia Aguilar RN Unavailable [facility]available [facility] Un[facility] [phone] Mandi Mar MD Primary Care Provider [phone] Neela Baum MD Unavailable [phone] Mariza Green NP Unavailable [phone] Gael Sullivan MD Unavailable [phone] Gael Sullivan MD Unavailable [phone] Encounter Details Date Type Department Care Team (Latest Contact Info) Description 04/27/2024 Travel Social History Tobacco Use Types Packs/Day [...] Description 06/09/2024 10:00 AM CDT Office Visit [facility] [address] [place] [phone] [place] [address] [place] [address] documented as of this encounter Visit Diagnoses Not on filedocumented in this encounter Additional Health Concerns Assessment Noted Time PHQ-9 Depression Total Score: 3 09/10/20 9:51 AM CDT documented as of this encounter Care Teams Senior Qa Automation Engineer Relationship Specialty [place] [address] [place] [address] PCP - General Family Medicine 03/29/22 [facility], [facility] ([facility]), ([place]) 05/29/19 Jairon Sofia MD [address] [place] [address] Urology 09/09/19 Lesvia Aguilar, RN Personal Advocate & Liaison (PAL) Family Medicine 06/20/21 [place] [address] [place] [address] Assigned PCP 01/01/22 [place] [address] [facility], [facility] [address] [place] [address] Assigned Musculoskeletal Provider 03/24/23 [place] [address] [place] [address] Nurse Practitioner Nurse Practitioner 04/09/23 [place] [address], [facility] [address] [place] [address] Cardiovascular Disease 12/21/23 Gael Sullivan MD [address] [place] [address] Assigned Heart and Vascular Provider 03/11/24 documented as of this encounter
--- OUTSIDE RECORDS SUMMARY | 2024-05-10 22:42 | XMS_ITS | Encounter Summary ---
Author Organization [place] Address [address] [place] [address]. [place] [address] Care Team Providers Care Cardiopulmonary Technologist Chief Name Role Phone [facility] Unavailable [phone] Jairon Sofia MD Unavailable [phone] Lesvia Aguilar RN Unavailable Unavailable Mandi Mar MD Unavailable [phone] Mandi Mar MD Primary Care Provider [phone] Neela Baum MD Unavailable [phone] Mariza Green NP Unavailable [phone] Gael Sullivan MD Unavailable [phone] Gael Sullivan MD Unavailable [phone] Reason for Referral * Specialty Diagnoses / Procedures Referred By Marcie t [facility] [address] [place] [phone] Referral ID Status Reason Start Date Expiration Date Visits Re quested Visits Authorized Reason for Visit * Reason Onset Date Comments Anticoagulation 04/29/2024 Encounter Details Date Type Department Care Team (Latest Contact Info) Description 04/29/2024 Documentation Only [facility] [address] [place] [phone] Karen Ferreira RN Anticoagulation Social History [...] as of this encounter Progress Notes * Karen Ferreira RN - 04/29/2024 3:30 PM CDT ANTICOAGULATION CLINIC REFERRAL RENEWAL REQUEST An annual renewal order is required for all patients referred to [facility].? Please review and sign the pended referral order for Raffy Montgomery. ANTICOAGULATION SUMMARY Warfarin indication(s) Atrial Fibrillation and Stroke Mechanical heart valve present? NO Current goal range INR: 2.0-3.0 Goal appropriate for indication? Goal INR 2-3, standard for indication(s) above Time in Therapeutic Range (TTR) (Goal > 60%) 71.6% Office visit with referring provider's group within last year yes on 09/10/23 Karen Ferreira RN [facility] documented in this encounter Plan of Treatment Upcoming Encounters Date Type Department Care Team (Late st Contact Info) Description 06/09/2024 10:00 AM CDT Office Visit [address] [address] [place] [address] [place] [address] Scheduled Referrals Name Type Priority Associated Diagnoses Order Schedule Anticoagulation Clinic Referral Referral Routine: Next available opening Atrial fibrillation, unspecified type (H) 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), unspecified mechanism (H) Ordered: 04/29/2024 documented as of this encounter Visit Diagnoses Diagnosis Atrial fibrillation, unspecified type (H)- Primary 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), 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 documented in this encounter Additional Health Concerns Assessment Noted Time PHQ-9 Depression Total Score: 3 09/10/20 9:51 AM CDT documented as of this encounter Care Teams Cardiopulmonary Technologist Chief Relationship Specialty [place] [address] [place] [address] PCP - General Family Medicine 03/29/22 [facility] ([facility] ([place]) 05/29/19 Jairon Sofia MD [address] [facility] [address] [place], [place] [address] Urology 09/09/19 Lesvia Aguilar, RN Personal Advocate & Liaison (PAL) Family Medicine 06/20/21 [place] [address] [place] [address] Assigned PCP 01/01/22 [place] [address] [facility] [address] [place] [address] Assigned Musculoskeletal Provider 03/24/23 Mariza Green, ERICK [address] [place], [place] [address] Nurse Practitioner Nurse Practitioner 04/09/23 [place] [address] [facility] [address] [place], [place] [address] Cardiovascular Disease 12/21/23 Gael Sullivan MD [address] [facility] [address] [place] [address] Assigned Heart and Vascular Provider 03/11/24 documented as of this encounter
--- OUTSIDE RECORDS SUMMARY | 2024-05-10 22:43 | XMS_ITS | Encounter Summary ---
Author Organization [place] Address [address] [facility] [place] [address] Care Team Providers Care Cross Country Coach Name Role Phone [facility], [facility] Unavailable Jairon Sofia MD Unavailable [phone] Lesvia Aguilar RN Unavailable [facility]available [facility] Un[facility] [phone] Mandi Mar MD Primary Care Provider Neela Baum MD Unavailable Mariza Green NP Unavailable [phone] Gael Sullivan MD Unavailable [phone] Gael Sullivan MD Unavailable [phone] Reason for Visit * Diagnostic Imaging NM (Routine) - Authorized Specialty Diagnoses / Procedures Referred By Contac t Referred To Contact Radiology. Diagnoses S/P CABG (coronary artery bypass graft) COATS (dyspnea on exertion) Procedures NM Lexiscan stress test (nuc card) Gael Sullivan MD [address] [place] [address] Nuclear Medicine [address] [place] [address] Referral ID Status Reason Start Date Expiration Date V isits Requested Visits Authorized [id number] Authorized 03/06/2024 03/06/2025 5 5 Encounter Details Date Type Department Care Team (Latest Contact Info) Description 03/19/2024 10:32 AM CDT Hospital Encounter [facility] Imaging [address] [place] [address] Gael Sullivan MD [address] [facility] [address] [place] [address] Discharge Disposition: Home or Self Care Social [...] on file documented as of this encounter Medications at Time of Discharge Medication Sig Dispensed Refills Start Date End Date buPROPion (WELLBUTRIN XL) 150 MG 24 hr tabletIndications:Mode rate major depression (H) 1 tab every am 90 tablet 1 01/22/2024 cilostazol (PLETAL) 100 MG tabletIndications:Cere brovascular accident (CVA), unspecified mechanism (H) Take 1 tablet (100 mg) by mouth 2 times daily 180 tablet 3 01/28/2024 citalopram (CELEXA) 20 MG tabletIndications:Mode rate major depression (H) TAKE 1/2 (ONE-HALF) TABLET BY MOUTH THREE TIMES A WEEK 18 tablet 1 12/11/2023 diltiazem ER COATED BEADS (CARDIZEM CD/CARTIA XT) 120 MG 24 hr capsuleIndications:Atr ial fibrillation, unspecified type (H) Take 1 capsule (120 mg) by mouth daily 90 capsule 3 04/09/2023 docusate sodium (COLACE) 100 MG capsuleIndications:Ane zahira, unspecified type Take 1 capsule (100 mg) by mouth 2 times daily 180 capsule 3 04/09/2023 ferrous sulfate (FEROSUL) 325 (65 Fe) MG tabletIndications:Iron deficiency Take 1 tablet (325 mg) by mouth daily (with breakfast) 90 tablet 04/09/2023 furosemide (LASIX) 20 MG tabletIndications:Esse ntial hypertension Take 1 tablet (20 mg) by mouth daily TAKE 1 TABLET BY MOUTH ONCE DAILY NEEDED FOR LEG SWELLING 90 tablet 3 04/09/2023 losartan (COZAAR) 25 MG tabletIndications:Esse ntial hypertension Take 1 tablet (25 mg) by mouth daily 90 tablet 3 09/10/2023 Melatonin 10 MG TABS tablet Take 10 mg by mouth At Bedtime Multiple Vitamins-Minerals (MULTIVITAMIN ADULT PO) Take 1 tablet by mouth daily order for DMEIndications:Lymphed césar 1: Gradient Compression Wraps; 2: cast Boots; 3; BLE 20-30 mm Hg compression stockings; knee high; 4: Velcro compression garments BLE's 1 each 06/05/2019 pantoprazole (PROTONIX) 40 MG EC tabletIndications: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 Take 1 tablet (40 mg) by mouth daily 90 tablet 1 01/17/2024 pregabalin (LYRICA) 50 MG capsuleIndications:Mon oneuropathy Take 1 capsule (50 mg) by mouth 2 times daily 180 capsule 1 09/25/2023 tamsulosin (FLOMAX) 0.4 MG capsuleIndications:Enl arged prostate Take 1 capsule by mouth once daily 90 capsule 2 12/18/2022 Thiamine HCl (VITAMIN B-1) 250 MG TABSIndications:Cerebr ovascular accident (CVA), unspecified mechanism (H) Take 1 each by mouth daily 30 tablet 06/25/2017 warfarin ANTICOAGULANT (COUMADIN) 4 MG tabletIndications:Atri al fibrillation, unspecified type (H) 6 mg ( 4 mg x 1.5 tabs) every Sunday, Sun, Sun then 4 mg ( 4 mg x 1 tab ) all other days of the weekAdjust as directed by INR clinic. 122 tablet 1 12/11/2023 atorvastatin (LIPITOR) 80 MG tabletIndications:Cere brovascular accident (CVA), unspecified mechanism (H) Take 1 tablet (80 mg) by mouth daily 90 tablet 3 04/09/2023 04/16/2024 baclofen (LIORESAL) 10 MG tabletIndications:Cere brovascular accident (CVA), unspecified mechanism (H) TAKE 1/2 (ONE-HALF) TABLET BY MOUTH AT BEDTIME *DO NOT STOP ABRUPTLY DUE TO RISK OF WITHDRAWL* 45 tablet 3 04/09/2023 04/15/2024 documented as of this encounter Plan of Treatment Upcoming Encounters Date Type Department Care Team (Late st Contact Info) Description 06/09/2024 10:00 AM CDT Office Visit [facility] [address] [place] [address] [place] [address] [place] [address] documented as of this encounter Procedures Procedure Name Priority Date/Time Associated Diagnosis Comments NM MPI WITH LEXISCAN Routine 03/19/2024 1:28 PM CDT S/P CABG (coronary artery bypass graft) COATS (dyspnea on exertion) documented in this encounter Results * NM Lexiscan stress test (nuc card) [...] rest on 03/19/2024. Nuclear Study Quality The lead quality technician images demonstrate subdiaphragmatic radiotracer activity interference. Final [...] normal. Gael Sullivan MD IMG NM ORDERABLES documented in this encounter Visit Diagnoses Not on filedocumented in this encounter Additional Health Concerns Assessment Noted Time PHQ-9 Depression Total Score: 3 09/10/20 23 9:51 AM CDT documented as of this encounter Care Teams Cross Country Coach Relationship Specialty [place] [address] [place] [address] PCP - General Family Medicine 03/29/22 [facility], [facility] ([facility] ([place]) 05/29/19 Jairon Sofia MD [address] [address] Urology 09/09/19 Lesvia Aguilar RN Personal Advocate & Liaison (PAL) Family Medicine 06/20/21 [place] [address] [place] [address] Assigned PCP 01/01/22 [place] [address] [address] [address] Assigned Musculoskeletal Provider 03/24/23 [place] [address] [place] [address] Nurse Practitioner Nurse Practitioner 04/09/23 [place] [address] [facility] [address] [place] [address] Cardiovascular Disease 12/21/23 Gael Sullivan MD [address] [facility] [address] [place] [address] Assigned Heart and Vascular Provider 03/11/24 documented as of this encounter
--- OUTSIDE RECORDS SUMMARY | 2024-05-10 22:43 | XMS_ITS | Encounter Summary ---
Author Organization [place] Address [address] [facility] [place] [address] Care Team Providers Care Lining Cementer Name Role Phone [facility], [facility] Unavailable Jairon Sofia MD Unavailable [phone] Lesvia Aguilar RN Unavailable Unavailable [facility]available [phone] Mandi Mar MD Primary Care Provider Neela Baum MD Unavailable [phone] Mariza Green NP Unavailable [phone] Gael Sullivan MD Unavailable [phone] Gael Sullivan MD Unavailable [phone] Reason for Visit * Diagnostic Imaging NM (Routine) - Authorized Specialty Diagnoses / Procedures Referred By Contac t Referred To Contact Radiology. Diagnoses S/P CABG (coronary artery bypass graft) COATS (dyspnea on exertion) Procedures NM Lexiscan stress test (nuc card) Gael Sullivan MD [address] [place] [address] Nuclear Medicine [address] [place] [address] Referral ID Status Reason Start Date Expiration Date V isits Requested Visits Authorized [id number] Authorized 03/06/2024 03/06/2025 5 5 Encounter Details Date Type Department Care Team (Latest Contact Info) Description 03/19/2024 10:32 AM CDT Hospital Encounter M [facility] Imaging [address] [place] [address] Gael Sullivan MD [address] [facility] [address] [place] [address] Discharge Disposition: Home or Self Care Social [...] Description 06/09/2024 10:00 AM CDT Office Visit [facility] [address] [place] [address] [place] [address] [place] [address] documented as of this encounter Procedures Procedure [...] on 03/19/2024. Nuclear Study Quality The quality tester images demonstrate subdiaphragmatic radiotracer activity interference. Final [...] documented as of this encounter Care Teams Lining Cementer Relationship Specialty [place] [address] [place] [address] PCP - General Family Medicine 03/29/22 [facility], [facility] ([facility] ([place]) 05/29/19 Jairon Sofia MD [address] [address] Urology 09/09/19 Lesvia Aguilar RN Personal Advocate & Liaison (PAL) Family Medicine 06/20/21 [place] [address] [place] [address] Assigned PCP 01/01/22 [place] [address] [address] [address] Assigned Musculoskeletal Provider 03/24/23 [place] [address] [place] [address] Nurse Practitioner Nurse Practitioner 04/09/23 [place] [address] [facility] [address] [place] [address] Cardiovascular Disease 12/21/23 Gael Sullivan MD [address] [facility] [address] [place] [address] Assigned Heart and Vascular Provider 03/11/24 documented as of this encounter
--- OUTSIDE RECORDS SUMMARY | 2024-05-10 22:43 | XMS_ITS | Encounter Summary ---
Author Organization [place] Address Pending sale to [facility] [place] [address] Care Team Providers Care Cross Cut Sawyer Name Role Phone [facility] Unavailable [phone] Jairon Sofia MD Unavailable [phone] Lesvia Aguilar RN Unavailable Unavailable Mandi Mar MD Unavailable [phone] Mandi Mar MD Primary Care Provider [phone] Neela Baum MD Unavailable [phone] Mariza Green NP Unavailable [phone] Gael Sullivan MD Unavailable [phone] Gael Sullivan MD Unavailable [phone] Encounter Details Date Type Department Care Team (Late st Contact Info) Description 04/08/2024 [facility] Anticoagulation Clinic [address] [place] [phone] [place] [address] [place] [address] Social History Tobacco Use Types [...] in an abandoned building, in an overnight fci, or couch-surfing.) Yes 08/20/2023 Are you worried [...] Description 06/09/2024 10:00 AM CDT Office Visit [facility] [address] [place] [phone] [place] [address] [place] [address] documented as of this encounter Procedures Procedure Name Priority Date/Time Associated Diagnosis Comments INR (EXTERNAL RESULT) Routine 04/08/2024 12:00 AM CDT documented in this encounter Results * (ABNORMAL) INR (External Result) (04/08/2024 12:00 AM CDT) INR HOME MONITORING 1.7(L) 2.000 - 3.000 [employer] 04/08/2024 Narrative [employer] - 04/08/2024 11:00 AM CDT Mandi Mar MD LAB - HIM EXTERNA L RESULT Performing Organization Address City/State/[facility] [place] Co de Phone Number [employer] [address] [place] [address] documented in this encounter Visit Diagnoses Not on filedocumented in this encounter Additional Health Concerns Assessment Noted Time PHQ-9 Depression Total Score: 3 09/10/20 23 9:51 AM CDT documented as of this encounter Care Teams Cross Cut Sawyer Relationship Specialty [place] [address] [place] [address] PCP - General Family Medicine 03/29/22 [facility] ([place]) 05/29/19 Jairon Sofia MD [address] [place] [address] [place] [address] Urology 09/09/19 Lesvia Aguilar, RN Personal Advocate & Liaison (PAL) Family Medicine 06/20/21 [place] [address] [place] [address] Assigned PCP 01/01/22 [place] [address] [facility], [facility] [address] [place] [address] Assigned Musculoskeletal Provider 03/24/23 [place] [address] [place] [address] Nurse Practitioner Nurse Practitioner 04/09/23 [place] [address] [facility] 140 [place] [address] Cardiovascular Disease 12/21/23 Gael Sullivan MD [address] [facility] [address] [place] [address] Assigned Heart and Vascular Provider 03/11/24 documented as of this encounter
--- OUTSIDE RECORDS SUMMARY | 2024-05-10 22:43 | XMS_ITS | Encounter Summary ---
Author Organization [place] Address [facility] [place] [address] Care Team Providers Care Pediatric Anesthesiologist Name Role Phone [facility], [facility] Unavailable Jairon Sofia MD Unavailable [phone] Lesvia Aguilar RN Unavailable [facility]available [facility] Un[facility] [phone] Mandi Mar MD Primary Care Provider [phone] Neela Baum MD Unavailable [phone] Mariza Green NP Unavailable [phone] Gael Sullivan MD Unavailable [phone] Gael Sullivan MD Unavailable [phone] Reason for Referral * Diagnostic Imaging MRI (Routine) - Closed Specialty Diagnoses / Procedures Referred By Contac t Referred To Contact Radiology. Diagnoses Pain in left foot Procedures MR Foot Left w/o Contrast Violette Acharya PA-C [facility] [place] [address] [place] [address] Referral ID Status Reason Start Date Expiration Date Visits Re quested Visits Authorized [id number] Closed 03/21/2024 03/21/2025 1 1 Reason for Visit * Diagnostic Imaging MRI (Routine) - Closed Specialty Diagnoses / Procedures Referred By Marcie ang Referred To Contact Radiology. Diagnoses Pain in left foot Procedures MR Foot Left w/o Contrast Violette Acharya PA-C [facility] [place] [address] [place] [address] Referral ID Status Reason Start Date Expiration Date Visits Re quested Visits Authorized [id number] Closed 03/21/2024 03/21/2025 1 1 Encounter Details Date Type Department Care Team (Late st Contact Info) Description 03/30/2024 3:57 PM CDT - 03/30/2024 11:59 PM CDT Hospital Encounter [facility] Imaging [address] [facility] [address] [place] [phone] Violette Acharya PA-C [facility] [address] [place] [address] Pain in left foot Discharge Disposition: Home or Self Care Social [...] in an abandoned building, in an overnight alf, or couch-surfing.) Yes 08/20/2023 Are you worried [...] 06/09/2024 10:00 AM CDT Office Visit [facility] [address] [place] [address] [place] [address] [place] [address] documented as of this encounter Procedures Procedure Name Priority Date/Time Associated Diagnosis Comments MR FOOT LEFT W/O CONTRAST Routine 03/30/2024 4:59 PM CDT Pain in left foot documented in this encounter Results * MR Foot Left w/o Contrast (03/30/2024 [...] (Joe) Violette Acharya PA-C IMG MRI ORDERABLES documented in this encounter Visit Diagnoses Diagnosis Pain in left foot Pain in limb documented in this encounter Additional Health Concerns Assessment Noted Time PHQ-9 Depression Total Score: 3 09/10/20 23 9:51 AM CDT documented as of this encounter Care Teams Pediatric Anesthesiologist Relationship Specialty [place] [address] [place] [address] PCP - General Family Medicine 03/29/22 [facility] ([facility] ([place]) 05/29/19 Jairon Sofia MD [address] [place] [address] [place], [place] [address] Urology 09/09/19 Lesvia Aguilar, RN Personal Advocate & Liaison (PAL) Family Medicine 06/20/21 [place] [address] [place] [address] Assigned PCP 01/01/22 [place] [address] [facility], [facility] [address] [place] [address] Assigned Musculoskeletal Provider 03/24/23 [place] [address] [place] [address] Nurse Practitioner Nurse Practitioner 04/09/23 [place] [address] [facility] [address] [place] [address] Cardiovascular Disease 12/21/23 Gael Sullivan MD [address] [facility] [address] [place] [address] Assigned Heart and Vascular Provider 03/11/24 documented as of this encounter
--- OUTSIDE RECORDS SUMMARY | 2024-05-10 22:43 | XMS_ITS | Encounter Summary ---
Author Organization [place] Address [facility] [place] [address] Care Team Providers Care Pasteurizing Machine Operator Name Role Phone [facility] Unavailable [phone] Jairon Sofia MD Unavailable [phone] Lesvia Aguilar RN Unavailable [facility]available [facility] Unavailable [phone] Mandi Mar MD Primary Care Provider [phone] Neela Baum MD Unavailable [phone] Mariza Green NP Unavailable [phone] Gael Sullivan MD Unavailable [phone] Gael Sullivan MD Unavailable [phone] Reason for Visit * Reason Onset Date Comments Anticoagulation Procedure Plan 04/08/2024 Encounter Details Date Type Department Care Team (Latest Contact Info) Description 04/08/2024 [facility] [address] [place] [address] José Miguel Ponce, GEOFF Anticoagulation Procedure Plan Social History Tobacco Use Types Packs/Day Years [...] Encounter - Kaur Jean-Baptiste RN - 05/08/2024 12:25 PM CDT Called and spoke with spouse [...] Recheck INR ~5 days after resuming warfarin aKur Jean-Baptiste RN [facility] Anticoagulation [facility]. * Telephone Encounter - Kaur Jean-Baptiste RN - 05/07/2024 5:27 PM CDT Called and spoke with spouse, Terri who report that they are at the the chiropractor right now and will try to call back before 6 pm otherwise early tomorrow 05/08 morning. Kaur Jean-Baptiste RN [facility] Anticoagulation [facility]. * Telephone Encounter - Isa Osullivan RN - 05/06/2024 5:17 PM CDT Patient will contact [facility] on 05/07 with decision regarding surgery. Please refer to 05/06/24 [facility] encounter for further documentation. * Telephone Encounter - José Miguel Ponce RN - 04/29/2024 6:14 PM CDT prefers to wait to go over plan until INR is taken on 05/06/24 due to potential that pt may nothave procedure done if status after recent fall doesn't improve. José Miguel Ponce, RN * Telephone Encounter - Mandi Mar MD - 04/29/2024 3:08 PM CDT Agree with plan, thanks! * Telephone Encounter - Valerie Gomez [facility] - 04/29/2024 11:40 AM CDT SONIA-PROCEDURAL ANTICOAGULATION MANAGEMENT ASSESSMENT Warfarin interruption plan for CM on 05/12/2024. Indication for Anticoagulation: Atrial Fibrillation and Stroke [id number] = 6 (Hypertension, Age >= 75, Stroke, and Vascular- PVD with endovascular repair ofAAA, and L CEA, CABG ) Sonia-Procedure Risk stratification for thromboembolism: moderate (2021 Chest guidelines and 2017 ACC periprocedure pathway for NVAF Expert Consensus) AFIB: 2021 CHEST Perioperative Management guidelines recommends against bridging for patients with atrial fibrillation except in high risk stratification patients. NVAF: 2017 ACC periprocedure pathway for NVAF advises likely bridge for moderate risk stratification with a hx of stroke, TIA or systemic embolism RECOMMENDATION Pre-Procedure: Hold warfarin for 5 days, until [...] Recheck INR ~5 days after resuming warfarin ? Plan routed to referring provider for approval ? Valerie Gomez RPH SUBJECTIVE/OBJECTIVE Raffy Montgomery, a 83 year old male Goal INR Range: 2.0-3.0 Patient bridged in past: Yes: last 02/2023 for spinal injection (prophylactic dose) Wt Readings from Last 3 Encounters: 04/27/24 95.3 kg (210 lb) 03/06/24 95.3 kg (210 lb) 09/10/23 99.8 kg (220 lb) Crawford body weight: 82.2 kg (181 lb 3.5 oz) Adjusted ideal body weight: 87.4 kg (192 lb 11.7 oz) Estimated body mass index is 26.96 kg/m?? as calculated from the following: Height as of 04/27/24: 1.88 m (6' 2). Weight as of 04/27/24: 95.3 kg (210 lb). Lab Results Component Value Date INR 2.95 (H) 04/27/2024 INR 2.59 (H) 04/25/2024 INR 2.1 04/22/2024 Lab Results Component Value Date HGB 14.9 04/27/2024 HCT 44.3 04/27/2024 PLT 213 04/27/2024 Lab Results Component Value Date CR 1.18 (H) 04/27/2024 CR 1.13 04/25/2024 CR 1.34 (H) 09/10/2023 Estimated Creatinine Clearance: 65.1 mL/min (A) (based on SCr of 1.18 mg/dL (H)). * Telephone Encounter - José Miguel Ponce RN - 04/08/2024 2:10 PM CDT SONIA-PROCEDURAL ANTICOAGULATION MANAGEMENT Raffy requesting pre-procedure hold orders for warfarin and review for bridging Procedure date: 05/12/24 Procedure: nerve block Procedure location and phone number (if external): [facility]- [phone] Number of warfarin hold days requested and/or target INR: 5 days Pre-op date: Not applicable- pt states they were told pt does not require one for this procedure Routing to Anticoagulation Pharmacist for review. José Miguel Ponce, RN documented in this encounter Plan of Treatment Upcoming Encounters Date Type Department Care Team (Late st Contact Info) Description 06/09/2024 10:00 AM CDT Office Visit [facility] [address] [place] [address] [place] [address] [place] [address] documented as of this encounter Visit Diagnoses Diagnosis senior living current use of 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 with INR goal of 2.0-3.0- Primary 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), unspecified mechanism (H) Atrial fibrillation, unspecified type (H) documented in this encounter Additional Health Concerns Assessment Noted Time PHQ-9 Depression Total Score: 3 09/10/20 9:51 AM CDT documented as of this encounter Care Teams Pasteurizing Machine Operator Relationship Specialty [place] [address] [place] [address] PCP - General Family Medicine 03/29/22 [facility] ([facility] ([place]) 05/29/19 Jairon Sofia MD [address] [address] Urology 09/09/19 Lesvia Aguilar, GEOFF Personal Advocate & Liaison (PAL) Family Medicine 06/20/21 [place] [address] [place] [address] Assigned PCP 01/01/22 [place] [address] [facility] [address] [place] [address] Assigned Musculoskeletal Provider 03/24/23 [place] [address] [place] [address] Nurse Practitioner Nurse Practitioner 04/09/23 [place] [address] [facility] [address] [place] [address] Cardiovascular Disease 12/21/23 Gael Sullivan MD [address] [facility] [address] [place] [address] Assigned Heart and Vascular Provider 03/11/24 documented as of this encounter
--- OUTSIDE RECORDS SUMMARY | 2024-05-10 22:43 | XMS_ITS | Encounter Summary ---
Author Organization [place] Address [address] [place] [address]. [place] [address] Care Team Providers Care Victim Witness Administrator Name Role Phone [facility] Unavailable Jairon Sofia MD Unavailable [phone] Lesvia Aguilar RN Unavailable Unavailable ElistMandi love MD Unavailable [phone] Mandi Mar MD Primary Care Provider [phone] Neela Baum MD Unavailable [phone] Mariza Green NP Unavailable [phone] Gael Sullivan MD Unavailable [phone] Gael Sullivan MD Unavailable [phone] Reason for Visit * Reason Onset Date Comments Refill Request 04/08/2024 baclofen (LIORES AL) 10 MG tablet Encounter Details Date Type Department Care Team (Late st Contact Info) Description 04/08/2024 Refill [facility] [address] [place] [address] [place] [address] [place] [address] Refill Request (baclofen (LIORESAL) 10 MG tablet) Social History Tobacco Use Types [...] Encounter - Lauren, Lesvia Rodriguez RN - 04/15/2024 10:29 AM CDT Spoke with Terri, they are NOT going with see Dr Tamez only tried as they wanted to see if he wouldqualify for medical marijuana. He did not qualify. Has AWV scheduled for May. Has several PT visits and an injection for his ankle coming up. Ok for RF on the Baclofen as he is out? Levsia Aguilar RN * Telephone Encounter - Stephanie Kwon MA - 04/10/2024 12:28 PM CDT Spoke with Art, he will have pharmacy send to Dr. Tamez. Stephanie Kwon, Loss Claim Clerk * Telephone Encounter - Mandi Mar MD - 04/10/2024 10:50 AM CDT Looks like they are back with Dashawn? Script denied until further info. If not, he is overdue for AWV documented in this encounter Plan of Treatment Upcoming Encounters Date Type Department Care Team (Late st Contact Info) Description 06/09/2024 10:00 AM CDT Office Visit [address] [address] [place] [id number] [place] [address] documented as of this encounter Visit Diagnoses Diagnosis 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), unspecified mechanism (H) documented in this encounter Additional Health Concerns Assessment Noted Time PHQ-9 Depression Total Score: 3 09/10/20 9:51 AM CDT documented as of this encounter Care Teams Victim Witness Administrator Relationship Specialty [place] [address] [place] [address] PCP - General Family Medicine 03/29/22 [facility] ([facility]), ([place]) 05/29/19 Jairon Sofia MD [address] [place] [address] Urology 09/09/19 Lesvia Aguilar, RN Personal Advocate & Liaison (PAL) Family Medicine 06/20/21 [place] [address] [place] [address] Assigned PCP 01/01/22 [place] [address] [address] [address] [place], [place] [address] Assigned Musculoskeletal Provider 03/24/23 [place] [address] [address] [place] [address] Nurse Practitioner Nurse Practitioner 04/09/23 [place] [address] [facility], [facility] [address] [place], [place] [address] Cardiovascular Disease 12/21/23 Gael Sullivan MD [address] [place] [address] Assigned Heart and Vascular Provider 03/11/24 documented as of this encounter
--- OUTSIDE RECORDS SUMMARY | 2024-05-10 22:43 | XMS_ITS | Encounter Summary ---
Author Organization [place] Address [address] [place] [address] Care Team Providers Care Vocational Rehabilitation Consultant Name Role Phone [facility] Unavailable Jairon Sofia MD Unavailable [phone] Lesvia Aguilar RN Unavailable Unavailable [facility] Unavailable [phone] Mandi Mar MD Primary Care Provider Neela Baum MD Unavailable [phone] Mariza Green NP Unavailable [phone] Gael Sullivan MD Unavailable [phone] Gael Sullivan MD Unavailable [phone] Reason for Visit * Diagnostic Imaging NM (Routine) - Authorized Specialty Diagnoses / Procedures Referred By Contac t Referred To Contact Radiology. Diagnoses S/P CABG (coronary artery bypass graft) COATS (dyspnea on exertion) Procedures NM Lexiscan stress test (nuc card) Gael Sullivan MD [address] [place] [address] Nuclear Medicine [address] [place] [address] Referral ID Status Reason Start Date Expiration Date V isits Requested Visits Authorized [id number] Authorized 03/06/2024 03/06/2025 5 5 Encounter Details Date Type Department Care Team (Latest Contact Info) Description 03/19/2024 10:33 AM CDT - 03/19/2024 11:59 PM CDT Hospital Encounter [facility] [address] [place] [address] Gael Sullivan MD [address] [facility] [address] [place] [address] Discharge Disposition: Home or Self Care Social [...] in an abandoned building, in an overnight usp, or couch-surfing.) Yes 08/20/2023 Are you worried [...] 04/09/2023 04/15/2024 documented as of this encounter Progress Notes * Ji Chatman RN - 03/19/2024 12:34 PM CDT Pt tolerated Lexiscan well, no SOB, C/P VSS documented in this encounter Plan of Treatment Upcoming Encounters Date Type Department Care Team (Late st Contact Info) Description 06/09/2024 10:00 AM CDT Office Visit [facility] [address] [place] [address] [place] [address] [place] [address] documented as of this encounter Procedures Procedure Name Priority Date/Time Associated Diagnosis Comments NM MPI WITH LEXISCAN Routine 03/19/2024 1:28 PM CDT S/P CABG (coronary artery bypass graft) COATS (dyspnea on exertion) documented in this encounter Visit Diagnoses Not on filedocumented in this encounter Administered Medications Inactive Administered Medications - up to 3 most recent administrations Medication Order MAR Action Action Date Dose Rate Site regadenoson (LEXISCAN) injection 0.4 mg 0.4 mg, Intravenous, ONCE, On Sun03/19/24 at 1300, For 1 dose $Given 03/19/2024 12:32 PM CDT 0.4 mg documented in this encounter Additional Health Concerns Assessment Noted Time PHQ-9 Depression Total Score: 3 09/10/20 23 9:51 AM CDT documented as of this encounter Care Teams Vocational Rehabilitation Consultant Relationship Specialty [place] [address] [place] [address] PCP - General Family Medicine 03/29/22 [facility]Y ([facility]), ([place]) 05/29/19 Jairon Sofia MD [address] [address] Urology 09/09/19 Lesvia Aguilar RN Personal Advocate & Liaison (PAL) Family Medicine 06/20/21 [place] [address] [place] [address] Assigned PCP 01/01/22 [place] [address] [facility] [address] [place] [address] Assigned Musculoskeletal Provider 03/24/23 [place] [address] [place] [address] Nurse Practitioner Nurse Practitioner 04/09/23 [place] [address] [facility] [address] [place], [place] [address] Cardiovascular Disease 12/21/23 Gael Sullivan MD [address] [facility] [address] [place], [place] [address] Assigned Heart and Vascular Provider 03/11/24 documented as of this encounter
--- OUTSIDE RECORDS SUMMARY | 2024-05-10 22:43 | XMS_ITS | Encounter Summary ---
Author Organization [place] Address [address] [facility] [place] [address] Care Team Providers Care Borough Coordinator Name Role Phone [facility] Unavailable Jairon Sofia MD Unavailable [phone] Lesvia Aguilar RN Unavailable [facility]available [facility] Unavailable [phone] Mandi Mar MD Primary Care Provider Neela Baum MD Unavailable [phone] Mariza Green NP Unavailable [phone] Gael Sullivan MD Unavailable [phone] Gael Sullivan MD Unavailable [phone] Reason for Referral * Diagnostic Imaging NM (Routine) - Authorized Specialty Diagnoses / Procedures Referred By Contac t Referred To Contact Radiology. Diagnoses S/P CABG (coronary artery bypass graft) COATS (dyspnea on exertion) Procedures NM Lexiscan stress test (nuc card) Gael Sullivan MD [address] [place] [address] Nuclear Medicine [address] [place] [address] Referral ID Status Reason Start Date Expiration Date V isits Requested Visits Authorized [id number] Authorized 03/06/2024 03/06/2025 5 5 Reason for Visit * Diagnostic Imaging NM (Routine) - Authorized Specialty Diagnoses / Procedures Referred By Contac t Referred To Contact Radiology. Diagnoses S/P CABG (coronary artery bypass graft) COATS (dyspnea on exertion) Procedures NM Lexiscan stress test (nuc card) Gael Sullivan MD [address] [place] [address] Nuclear Medicine [address] [place] [address] Referral ID Status Reason Start Date Expiration Date V isits Requested Visits Authorized [id number] Authorized 03/06/2024 03/06/2025 5 5 Encounter Details Date Type Department Care Team (Latest Contact Info) Description 03/19/2024 10:30 AM CDT - 03/19/2024 10:31 AM CDT Hospital Encounter [facility] Imaging [address] [place] [address] Gael Sullivan MD [address] [place] [address] S/P CABG (coronary artery bypass graft); COATS (dyspnea on exertion) Discharge Disposition: Home or Self Care Social [...] Description 06/09/2024 10:00 AM CDT Office Visit [facility] [address] [place] [address] Mand[place] [address] [place] [address] documented as of this encounter Procedures Procedure [...] rest on 03/19/2024. Nuclear Study Quality The senior quality control inspector images demonstrate subdiaphragmatic radiotracer activity interference. Final [...] wall motion is normal. Gael Sullivan MD [facility] [place] ORDERABLES documented in this encounter Visit Diagnoses Diagnosis 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 COATS (dyspnea on exertion) Other dyspnea and respiratory abnormality documented in this encounter Administered Medications Inactive Administered Medications - up to 3 most recent administrations Medication Order MAR Action Action Date Dose Rate Site technetium sestamibi 2 UD per study (Tc99m MiBi) radioisotope injection 3-42 millicurie 3-42 millicurie, Intravenous, EVERY 2 HOURS, First dose on Sun03/19/24 at 1200, For 2 doses, Radioisotope, supplied by and administered by Nuclear Medicine. *HW* $Given 03/19/2024 12:36 PM CDT 33 millicuries $Given 03/19/2024 10:50 AM CDT 11 millicuries documented in this encounter Additional Health Concerns Assessment Noted Time PHQ-9 Depression Total Score: 3 09/10/20 23 9:51 AM CDT documented as of this encounter Care Teams Borough Coordinator Relationship Specialty [place] [address] [place] [address] PCP - General Family Medicine 03/29/22 [facility]Y ([facility]), ([place]) 05/29/19 Jairon Sofia MD [address] [facility] [address] [place] [address] Urology 09/09/19 Lesvia Aguilar, RN Personal Advocate & Liaison (PAL) Family Medicine 06/20/21 [place] [address] [place] [address] Assigned PCP 01/01/22 [place] [address] [facility] [address] [place] [address] Assigned Musculoskeletal Provider 03/24/23 [place] [address] [place] [address] Nurse Practitioner Nurse Practitioner 04/09/23 [place] [address] [facility] [address] [place] [address] Cardiovascular Disease 12/21/23 Gael Sullivan MD [address] [facility] [address] [place] [address] Assigned Heart and Vascular Provider 03/11/24 documented as of this encounter
--- OUTSIDE RECORDS SUMMARY | 2024-05-10 22:43 | XMS_ITS | Encounter Summary ---
Author Organization [place] Address [facility], [facility]–[address] [place] [address] Care Team Providers Care Puppy Trainer Name Role Phone [facility] Unavailable [phone] Jairon Sofia MD Unavailable [phone] Lesvia Aguilar RN Unavailable [facility]available [facility] Unavailable [phone] Mandi Mar MD Primary Care Provider [phone] Neela Baum MD Unavailable [phone] Mariza Green NP Unavailable [phone] Gael Sullivan MD Unavailable [phone] Gael Sullivan MD Unavailable [phone] Encounter Details Date Type Department Care Team (Latest Contact Info) Description 03/18/2024 Anticoagulation Therapy Visit [facility] [address] [place] [id number] Chary Camp, RN Atrial fibrillation, unspecified type (H) (Primary Dx); terminal block assembler current use of 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 with INR goal [...] as of this encounter Progress Notes * Chary Camp RN - 03/18/2024 12:21 PM CDT ANTICOAGULATION MANAGEMENT Raffy Montgomery 83 year old male is on warfarin with therapeutic INR result. (Goal INR 2.0-3.0) Recent labs: (last 7 days) 03/18/24 0000 INR 2.0 ASSESSMENT Source(s): Chart Review and Patient/Caregiver Call Warfarin doses taken: Warfarin taken as instructed Diet: No new diet changes identified Medication/supplement changes: None noted New illness, injury, or hospitalization: No Signs or symptoms of bleeding or clotting: No Previous result: Therapeutic last 2(+) visits Additional findings: 03/19 Lexiscan; EKG; 03/27 ECHO and Doppler US. Also seeing [facility] for foot pain. He may have a small fracture. Continues to have foot pain. PLAN Recommended plan for no diet, medication or health factor changes affecting INR Dosing Instructions: Continue your current warfarin dose with next INR in 3 weeks Summary As of 03/18/2024 Full warfarin instructions: 6 mg every Mon, Wed, Fri; 4 mg all other days Next INR check: 04/08/2024 Telephone call with Terri who agrees to plan and repeated back plan correctly Patient to recheck with home meter Education provided: Please call back if any changes to your diet, medications or how you've been taking warfarin Plan made per [facility] anticoagulation protocol Chary Camp, RN Anticoagulation Clinic 03/18/2024 Anticoagulation Episode Summary Current INR goal: 2.0-3.0 TTR: 78.7% (1 y) Target end date: Indefinite Send INR reminders to: ANTICOAG HOME MONITORING Indications 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] prison current use of anticoagulant therapy (Resolved) [Z79.01] Atrial fibrillation unspecified type (H) [I48.91] terminal block assembler current use of 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 with INR goal of 2.0-3.0 [Z79.01] 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) unspecified mechanism (H) [I63.9] Comments: INR Home Monitor with [employer] Requesting a call with INR /16/23 Anticoagulation Care Providers Provider Role Specialty Phone number Mandi Mar MD Referring Family Medicine [phone] documented in this encounter Plan of Treatment Upcoming Encounters Date Type Department Care Team (Late st Contact Info) Description 06/09/2024 10:00 AM CDT Office Visit [facility] [address] [place] [address] [place] [address] [place] [address] documented as of this encounter Visit Diagnoses Diagnosis Atrial fibrillation, unspecified type (H)- Primary prison current use of 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 with INR goal of 2.0-3.0 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), unspecified mechanism (H) documented in this encounter Additional Health Concerns Assessment Noted Time PHQ-9 Depression Total Score: 3 09/10/20 9:51 AM CDT documented as of this encounter Care Teams Puppy Trainer Relationship Specialty [place] [address] [place] [address] PCP - General Family Medicine 03/29/22 [facility] ([place]) 05/29/19 Jairon Sofia MD [address] [facility] [address] [place] [address] Urology 09/09/19 Lesvia Aguilar, GEOFF Personal Advocate & Liaison (PAL) Family Medicine 06/20/21 [place] [address] [place] [address] Assigned PCP 01/01/22 [place] [address] [facility] [address] [place] [address] Assigned Musculoskeletal Provider 03/24/23 [place] [address] [place] [address] Nurse Practitioner Nurse Practitioner 04/09/23 [place] [address] [facility] [address] [place] [address] Cardiovascular Disease 12/21/23 Gael Sullivan MD [address] [facility] [address] [place] [address] Assigned Heart and Vascular Provider 03/11/24 documented as of this encounter
--- OUTSIDE RECORDS SUMMARY | 2024-05-10 22:43 | XMS_ITS | Encounter Summary ---
Author Organization [place] Address [address] [facility] [place] [address] Care Team Providers Care Steam Shovel Engineer Name Role Phone [facility] Unavailable Jairon Sofia MD Unavailable [phone] Lesvia Aguilar RN Unavailable [facility]available [facility] Unavailable [phone] Mandi Mar MD Primary Care Provider [phone] Neela Baum MD Unavailable [phone] Mariza Green NP Unavailable [phone] Gael Sullivan MD Unavailable [phone] Reason for Visit * Reason Onset Date Comments Appointment 03/10/2024 Annual Encounter Details Date Type Department Care Team (Late st Contact Info) Description 03/10/2024 [facility] Heart [place] [id number] [facility] [address] [place] [address] Gael Sullivan MD [address] [facility] [address] [place] [address] Appointment (Annual ) Social History Tobacco Use Types Packs/Day Years [...] encounter Miscellaneous Notes * Telephone Encounter - Magali Chilel RN - 03/10/2024 11:14 AM CDT Called back to Terri, discussed that Dr. Sullivan ordered PAULINE follow up so they can schedule PAULINE follow up if no availability with Dr. Sullivan. Per Terri they would prefer to have pt's testing done and be called with results. Discussed if any abnormal testing Dr. Sullivan may still recommend pt come in for PAULINE visit to review. 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 * Telephone Encounter - Zuleima Weiss - 03/10/2024 10:44 AM CDT [facility] Call Center Phone Message May a detailed message be left on voicemail: yes Reason for Call: Appointment Intake Referring Provider Name: Gael Sullivan Diagnosis and/or Symptoms: annual appt No available appts for Laurie at or . Pt is on wait list for any openings. Pt's as not very interested in an PAULINE with all the testing Laurie has ordered. Pts is going ahead and getting all the imaging tests schedule as ordered though. Action Taken: Other: cardiology Travel Screening: Not Applicable Thank you! [facility] documented in this encounter Plan of Treatment Upcoming Encounters Date Type Department Care Team (Late st Contact Info) Description 06/09/2024 10:00 AM CDT Office Visit [address] [address] [place] [address] [place] [address] documented as of this encounter Visit Diagnoses Not on filedocumented in this encounter Additional Health Concerns Assessment Noted Time PHQ-9 Depression Total Score: 3 09/10/20 23 9:51 AM CDT documented as of this encounter Care Teams Steam Shovel Engineer Relationship Specialty Start Date [place] Mand[place] [id number] [place] [address] PCP - General Family Medicine 03/29/22 [facility] ([facility] ([place]) 05/29/19 Jairon Sofia MD [address] [facility] [address] [place] [address] Urology 09/09/19 Lesvia Aguilar, RN Personal Advocate & Liaison (PAL) Family Medicine 06/20/21 [place] [address] [place] [address] Assigned PCP 01/01/22 [place] [address] [facility] [address] [place] [address] Assigned Musculoskeletal Provider 03/24/23 [place] [address] [place] [address] Nurse Practitioner Nurse Practitioner 04/09/23 [place] [address] [facility] [address] [place] [address] Cardiovascular Disease 12/21/23 documented as of this encounter
--- OUTSIDE RECORDS SUMMARY | 2024-05-10 22:43 | XMS_ITS | Encounter Summary ---
Author Organization [place] Address [facility] [place] [address] Care Team Providers Care Pediatric Speech Language Pathologist Name Role Phone [facility] Unavailable Jairon Sofia MD Unavailable [phone] Lesvia Aguilar RN Unavailable Unavailable Mandi Mar MD Unavailable [phone] Mandi Mar MD Primary Care Provider [phone] Neela Baum MD Unavailable [phone] Mariza Green NP Unavailable [phone] Gael Sullivan MD Unavailable [phone] Gael Sullivan MD Unavailable [phone] Encounter Details Date Type Department Care Team (Late st Contact Info) Description 03/18/2024 [facility] [address] [place] [phone] [place] [address] [place] [address] Social History Tobacco Use Types [...] in an abandoned building, in an overnight correction, or couch-surfing.) Yes 08/20/2023 Are you worried [...] Description 06/09/2024 10:00 AM CDT Office Visit [facility] [address] [place] [address] [place] [address] [facility] [place] [address] documented as of this encounter Procedures Procedure Name Priority Date/Time Associated Diagnosis Comments INR (EXTERNAL RESULT) Routine 03/18/2024 12:00 AM CDT documented in this encounter Results * INR (External Result) (03/18/2024 12:00 AM CDT) INR HOME MONITORING 2.0 2.000 - 3.000 [employer] 03/18/2024 Narrative [employer] - 03/18/2024 12:18 PM CDT Mandi Mar MD LAB - HIM EXTERNA L RESULT Performing Organization Address City/State/[facility] Co de Phone Number [employer] [address] [place] [address] documented in this encounter Visit Diagnoses Not on filedocumented in this encounter Additional Health Concerns Assessment Noted Time PHQ-9 Depression Total Score: 3 09/10/20 23 9:51 AM CDT documented as of this encounter Care Teams Pediatric Speech Language Pathologist Relationship Specialty [place] [address] [place] [address] PCP - General Family Medicine 03/29/22 [facility] ([facility]), ([place]) 05/29/19 Jairon Sofia MD [address] [place] [address] [place] [address] Urology 09/09/19 Lesvia Aguilar, RN Personal Advocate & Liaison (PAL) Family Medicine 06/20/21 [place] [address] [facility] [place] [address] Assigned PCP 01/01/22 [place] [address] [facility] [address] [place] [address] Assigned Musculoskeletal Provider 03/24/23 [place] [address] [place] [address] Nurse Practitioner Nurse Practitioner 04/09/23 [place] [address] [facility] [address] [place] [address] Cardiovascular Disease 12/21/23 Gael Sullivan MD [address] [facility] [address] [place] [address] Assigned Heart and Vascular Provider 03/11/24 documented as of this encounter
--- OUTSIDE RECORDS SUMMARY | 2024-05-10 22:43 | XMS_ITS | Encounter Summary ---
Author Organization [place] Address [address] [facility] [place] [address] Care Team Providers Care Concrete Stone Fabricating Supervisor Name Role Phone [facility], [facility] Unavailable [phone] Jairon Sofia MD Unavailable [phone] Lesvia Aguilar RN Unavailable [facility]available [facility] Unavailable [phone] Mandi Mar MD Primary Care Provider [phone] Neela Baum MD Unavailable [phone] Mariza Green NP Unavailable [phone] Gael Sullivan MD Unavailable [phone] Gael Sullivan MD Unavailable [phone] Encounter Details Date Type Department Care Team (Latest Contact Info) Description 03/27/2024 Travel Social History Tobacco Use Types Packs/Day [...] in an abandoned building, in an overnight nursing home, or couch-surfing.) Yes 08/20/2023 Are you worried [...] Description 06/09/2024 10:00 AM CDT Office Visit [facility] [address] [place] [phone] [place] [address] [place] [address] documented as of this encounter Visit Diagnoses Not on filedocumented in this encounter Additional Health Concerns Assessment Noted Time PHQ-9 Depression Total Score: 3 09/10/20 9:51 AM CDT documented as of this encounter Care Teams Concrete Stone Fabricating Supervisor Relationship Specialty [place] [address] [place] [address] PCP - General Family Medicine 03/29/22 [facility], [facility] ([facility]), ([place]) 05/29/19 Jairon Sofia MD [address] [place] [address] Urology 09/09/19 Lesvia Aguilar, RN Personal Advocate & Liaison (PAL) Family Medicine 06/20/21 [place] [address] [place] [address] Assigned PCP 01/01/22 [place] [address] [facility], [facility] [address] [place] [address] Assigned Musculoskeletal Provider 03/24/23 [place] [address] [place] [address] Nurse Practitioner Nurse Practitioner 04/09/23 [place] [address] [place], [facility] [address] [place] [address] Cardiovascular Disease 12/21/23 Gael Sullivan MD [address] [place] [address] Assigned Heart and Vascular Provider 03/11/24 documented as of this encounter
--- OUTSIDE RECORDS SUMMARY | 2024-05-10 22:43 | XMS_ITS | Encounter Summary ---
Author Organization [place] Address [address] [place] [address] Care Team Providers Care Engraving Supervisor Name Role Phone [facility], [facility] Unavailable [phone] Jairon Sofia MD Unavailable [phone] Lesvia Aguilar RN Unavailable Unavailable [facility] love MD Unavailable [phone] Mandi Mar MD Primary Care Provider [phone] Neela Baum MD Unavailable [phone] Mariza Green NP Unavailable [phone] Gael Sullivan MD Unavailable [phone] Gael Sullivan MD Unavailable [phone] Reason for Referral * Diagnostic Imaging Ultrasound (Routine) - Pending Review Specialty Diagnoses / Procedures Referred By Contac t Referred To Contact Radiology. Diagnoses Palpitations S/P CABG (coronary artery bypass graft) COATS (dyspnea on exertion) PAD (peripheral artery disease) (H24) Procedures US MISSAEL Doppler No Exercise (MISSAEL at rest) Gael Sullivan MD [address] [facility] [address] [place] [address] Referral ID Status Reason Start Date Expiration Date V isits Requested Visits Authorized [id number] Pending Review 03/06/2024 03/06/2025 1 1 Reason for Visit * Diagnostic Imaging Ultrasound (Routine) - Pending Review Specialty Diagnoses / Procedures Referred By Contac t Referred To Contact Radiology. Diagnoses Palpitations S/P CABG (coronary artery bypass graft) COATS (dyspnea on exertion) PAD (peripheral artery disease) (H24) Procedures US MISSAEL Doppler No Exercise (MISSAEL at rest) Gael Sullivan MD [address] [facility] [address] [place] [address] Referral ID Status Reason Start Date Expiration Date V isits Requested Visits Authorized [id number] Pending Review 03/06/2024 03/06/2025 1 1 Encounter Details Date Type Department Care Team (Latest Contact Info) Description 03/27/2024 9:35 AM CDT - 03/27/2024 10:22 AM CDT Hospital Encounter [facility] [address] [facility] [address] [place] [address] Gael Sullivan MD [address] [facility] [address] [place] [address] Palpitations; S/P CABG (coronary artery bypass graft); COATS (dyspnea on exertion); PAD (peripheral artery disease) (H24) Discharge Disposition: Home or Self Care Social [...] 4 mg x 1.5 tabs) every Sunday, Wed, Sun then 4 mg ( 4 mg [...] Description 06/09/2024 10:00 AM CDT Office Visit [facility] [address] [place] [address] [place] [address] [place] [address] documented as of this encounter Procedures Procedure Name Priority Date/Time Associated Diagnosis Comments US MISSAEL DOPPLER NO EXERCISE, 1-2 LEVELS,?? BILAT Routine 03/27/2024 10:29 AM CDT Palpitations S/P CABG (coronary artery bypass graft) COATS (dyspnea on exertion) PAD (peripheral artery disease) (H24) documented in this encounter Results * US MISSAEL Doppler No Exercise (MISSAEL [...] 0.2 - 0.49 Severe <0.2 Critical ASHU CAO MD Narrative 03/27/2024 11:38 AM CDT ULTRASOUND [...] pedis waveforms are triphasic/biphasic. 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 COATS (dyspnea on exertion) Other dyspnea and respiratory abnormality PAD (peripheral artery disease) (H24) Unspecified disorders of arteries and arterioles documented in this encounter Additional Health Concerns Assessment Noted Time PHQ-9 Depression Total Score: 3 09/10/20 23 9:51 AM CDT documented as of this encounter Care Teams Engraving Supervisor Relationship Specialty [place] [address] [place] [address] PCP - General Family Medicine 03/29/22 [facility] ([facility] ([place]) 05/29/19 Jairon Sofia MD [address] [facility] [address] [place], [place] [address] Urology 09/09/19 Lesvia Aguilar, RN Personal Advocate & Liaison (PAL) Family Medicine 06/20/21 [place] [address] [place] [address] Assigned PCP 01/01/22 [place] [address] [facility] [address] [place] [address] Assigned Musculoskeletal Provider 03/24/23 [place] [address] [place] [address] Nurse Practitioner Nurse Practitioner 04/09/23 [place] [address] [facility] [address] [place] [address] Cardiovascular Disease 12/21/23 Gael Sullivan MD [address] [facility] [address] [place] [address] Assigned Heart and Vascular Provider 03/11/24 documented as of this encounter
--- OUTSIDE RECORDS SUMMARY | 2024-05-10 22:43 | XMS_ITS | Encounter Summary ---
Author Organization [place] Address Critical access hospital0 [facility] [place] [address] Care Team Providers Care Animal Assisted Therapist Name Role Phone [facility], [facility] Unavailable [phone] Jairon Sofia MD Unavailable [phone] Lesvia Aguilar RN Unavailable Unavailable [facility] Unavailable [phone] Mandi Mar MD Primary Care Provider [phone] Neela Baum MD Unavailable Mariza Green NP Unavailable [phone] Gael Sullivan MD Unavailable [phone] Gael Sullivan MD Unavailable [phone] Reason for Referral * CV Testing (Routine) - Closed Specialty Diagnoses / Procedures Referred By Contac t Referred To Contact Cardiology Diagnoses S/P CABG (coronary artery bypass graft) COATS (dyspnea on exertion) Procedures Echocardiogram Complete ZZHC TTE W/DOPPLER, COMPLETE [facility] ECHO COMPLETE W DOPPLER W CONTRAST ZZHC ECHO COMPLETE W DOPPLER W/O CONTRAST ZZHC IV PUSH SINGLE, INITIAL SUBSTANCE ZZHC US GUIDE FOR PERICARDIOCENTESIS ZZHC ECHO MYOCARD BX ZZC INJECTION, PERFLUTREN LIPID MICROSPHERES, PER ML ZZ[facility] STATISTIC IV PUSH SINGLE INITIAL SUBSTANCE WY ECHO MYOCARD BX WY INJECTION, PERFLUTREN LIPID MICROSPHERES, PER ML WY TTE W/DOPPLER, COMPLETE WY IV PUSH SINGLE, INITIAL SUBSTANCE WY TTE W/DOPPLER, COMPLETE WY TTE W/DOPPLER, COMPLETE HC US GUIDE FOR PERICARDIOCENTESIS HC ECHO MYOCARD BX HC IV PUSH SINGLE, INITIAL SUBSTANCE HC STATISTIC IV PUSH SINGLE INITIAL SUBSTANCE HC ECHO COMPLETE W DOPPLER W CONTRAST HC ECHO COMPLETE W DOPPLER W/O CONTRAST Gael Sullivan MD [address] [place] [address] [facility] [address] [place] [address] Referral ID Status Reason Start Date Expiration Date Visits Re quested Visits Authorized [id number] Closed 03/06/2024 03/06/2025 1 1 Reason for Visit * CV Testing (Routine) - Closed Specialty Diagnoses / Procedures Referred By Contac t Referred To Contact Cardiology Diagnoses S/P CABG (coronary artery bypass graft) COATS (dyspnea on exertion) Procedures Echocardiogram Complete [facility] TTE W/DOPPLER, COMPLETE ZZ[facility] ECHO COMPLETE W DOPPLER W CONTRAST ZZ[facility] ECHO COMPLETE W DOPPLER W/O CONTRAST ZZ[facility] IV PUSH SINGLE, INITIAL SUBSTANCE ZZHC US GUIDE FOR PERICARDIOCENTESIS ZZHC ECHO MYOCARD BX ZZC INJECTION, PERFLUTREN LIPID MICROSPHERES, PER ML ZZ[facility] STATISTIC IV PUSH SINGLE INITIAL SUBSTANCE WY ECHO MYOCARD BX WY INJECTION, PERFLUTREN LIPID MICROSPHERES, PER ML WY TTE W/DOPPLER, COMPLETE WY IV PUSH SINGLE, INITIAL SUBSTANCE WY TTE W/DOPPLER, COMPLETE WY TTE W/DOPPLER, COMPLETE HC US GUIDE FOR PERICARDIOCENTESIS HC ECHO MYOCARD BX HC IV PUSH SINGLE, INITIAL SUBSTANCE HC STATISTIC IV PUSH SINGLE INITIAL SUBSTANCE HC ECHO COMPLETE W DOPPLER W CONTRAST HC ECHO COMPLETE W DOPPLER W/O CONTRAST Gael Sullivan MD [address] [place] [address] [facility] [address] [place] [address] Referral ID Status Reason Start Date Expiration Date Visits Re quested Visits Authorized [id number] Closed 03/06/2024 03/06/2025 1 1 Encounter Details Date Type Department Care Team (Latest Contact Info) Description 03/27/2024 10:23 AM CDT - 03/27/2024 11:59 PM CDT Hospital Encounter [facility] Special[facility] [address] [facility] [address] [place] [phone] Gael Sullivan MD [address] [place] [address] S/P CABG (coronary artery bypass graft); COATS [...] 10:00 AM CDT Office Visit [facility] [address] [place] [address] [place] [address] [place] [address] documented as of this encounter Procedures Procedure Name Priority Date/Time Associated Diagnosis Comments ECHO COMPLETE Routine 03/27/2024 11:41 AM CDT S/P CABG (coronary artery bypass graft) COATS (dyspnea on exertion) documented in this encounter Results * ECHO COMPLETE (03/27/2024 11:41 AM CDT) LVEF 55-60% CARDIOLOGY RESULTS Anatomical Region Laterality Modality Echocardiography 03/27/2024 10:3 5 AM CDT Narrative 03/27/2024 3:05 PM CDT [id number]^BLANCA^GAEL^JULIETTE [facility] Echocardiography Laboratory [address] [place] [address] Name: RAFFY GALLO : 1940 Study Date: 03/27/2024 10:35 AM Age: 83 yrs Gender: Male Patient Location: [facility] Reason For Study: S/P CABG (coronary artery [...] Procedure Note Denzel Gunderson MD - 03/27/2024 [id number]^BLANCA^GAEL^JULIETTE [facility] [address] [place] [address] Name: RAFFY GALLO : 1940 Study Date: 03/27/2024 10:35 AM Age: 83 yrs Gender: Male Patient Location: [facility] Reason For Study: S/P CABG (coronary artery [...] PM Gael Sullivan MD CV ECHO ORDERABLES documented in this encounter Visit Diagnoses Diagnosis 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 COATS (dyspnea on exertion) Other dyspnea and respiratory abnormality documented in this encounter Additional Health Concerns Assessment Noted Time PHQ-9 Depression Total Score: 3 09/10/20 23 9:51 AM CDT documented as of this encounter Care Teams Animal Assisted Therapist Relationship Specialty [place] [address] [place] [address] PCP - General Family Medicine 03/29/22 [facility], [facility] ([facility] ([place]) 05/29/19 Jairon Sofia MD [address] [place] [address] Urology 09/09/19 Lesvia Aguilar, RN Personal Advocate & Liaison (PAL) Family Medicine 06/20/21 [place] [address] [place] [address] Assigned PCP 01/01/22 [place] [address] [address] , [facility] [address] [place] [address] Assigned Musculoskeletal Provider 03/24/23 [place] [address] [place] [address] Nurse Practitioner Nurse Practitioner 04/09/23 [place] [address] [facility] [address] [place] [address] Cardiovascular Disease 12/21/23 Gael Sullivan MD [address] [place] [id number] Assigned Heart and Vascular Provider 03/11/24 documented as of this encounter
--- OUTSIDE RECORDS SUMMARY | 2024-05-10 22:43 | XMS_ITS | Encounter Summary ---
Author Organization [place] Address [facility] [place] [address] Care Team Providers Care Streetcar Repairer Helper Name Role Phone [facility] Unavailable + [phone] Jairon Sofia MD Unavailable +[phone] Lesvia Aguilar RN Unavailable Unavailable [facility] Unavailable +[phone] Mandi Mar MD Primary Care Provider [phone] Neela Baum MD Unavailable +[phone] Mariza Green NP Unavailable +[phone] Gael Sullivan MD Unavailable +[phone] Gael Sullivan MD Unavailable [phone] Encounter Details Date Type Department Care Team (Latest Contact Info) Description 04/08/[address] [facility] [address] [place] [phone] José Miguel Ponce, GEOFF Atrial fibrillation, unspecified type (H) (Primary Dx); alf current use of 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 with INR goal [...] this encounter Progress Notes * José Miguel Ponce RN - 04/08/2024 1:53 PM CDT ANTICOAGULATION MANAGEMENT Raffy Montgomery 83 year old male is on warfarin with subtherapeutic INR result. (Goal INR 2.0-3.0) Recent labs: (last 7 days) 04/08/24 0000 INR 1.7* ASSESSMENT Source(s): Chart Review and Patient/Caregiver Call Warfarin doses taken: Less warfarin taken than planned which may be affecting INR - pt had been holding warfarin for the past 2 days because he was suppose to have a nerve block procedure at [facility] in [place]. Pt states that they wanted him to hold 5-day prior to nerve block but she forgot to start the 5-day hold in time so that procedure was rescheduled for 05/12/24. Will start TE and send to [facility] for procedure plan. Diet: Decreased greens/vitamin K in diet; plans to resume previous intake Medication/supplement changes: None noted New illness, injury, or hospitalization: Pt continues to have foot pain and neuropathy pain, is hoping the nerve block will provider some relief. Signs or symptoms of bleeding or clotting: No Previous result: Therapeutic last 2(+) visits Additional findings: Upcoming procedure scheduled on 05/12/24 at [facility] for nerve block. Will start TE and route to [facility] for procedure plan. PLAN Recommended plan for temporary change(s) affecting INR Dosing Instructions: booster dose then continue your current warfarin dose with next INR in 1-2 weeks Summary As of 04/08/2024 Full warfarin instructions: 04/08: 12 mg; Otherwise 6 mg every Mon, Wed, Fri; 4 mg all other days Next INR check: 04/22/2024 Telephone call with Terri who verbalizes understanding and agrees to plan Patient to recheck with home meter Education provided: Goal range and lab monitoring: goal range and significance of current result and Importance of therapeutic range Importance of notifying anticoagulation clinic for: upcoming surgeries and procedures 2 weeks in advance Plan made with [facility] Pharmacist Valerie Ponce, GEOFF Anticoagulation Clinic 04/08/2024 Anticoagulation Episode Summary Current INR goal: 2.0-3.0 TTR: 74.4% (1 y) Target end date: Indefinite Send INR reminders to: ANTICOAG HOME MONITORING Indications 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] intermodal customer service current use of anticoagulant therapy (Resolved) [Z79.01] Atrial fibrillation unspecified type (H) [I48.91] alf current use of 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 with INR goal of 2.0-3.0 [Z79.01] 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) unspecified mechanism (H) [I63.9] Comments: INR Home Monitor with [employer] Requesting a call with INR [id number] Anticoagulation Care Providers Provider Role Specialty Phone number Mandi Mar MD Referring Family Medicine [phone] Associated attestation - Valerie Gomez RPH - 04/08/2024 5:15 PM CDT Chart reviewed with ACC RN at time of encounter. Valerie Gomez, PharmD [facility] Clinical Pharmacist documented in this encounter Plan of Treatment Upcoming Encounters Date Type Department Care Team (Late st Contact Info) Description 06/09/2024 10:00 AM CDT Office Visit [address] [phone] [place] [id number] [place] [address] documented as of this encounter Visit Diagnoses Diagnosis Atrial fibrillation, unspecified type (H)- Primary alf current use of 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 with INR goal of 2.0-3.0 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), unspecified mechanism (H) documented in this encounter Additional Health Concerns Assessment Noted Time PHQ-9 Depression Total Score: 3 09/10/20 9:51 AM CDT documented as of this encounter Care Teams Streetcar Repairer Helper Relationship Specialty Start Date [place] Date Mandi Mar MD [id number] [place] [address] PCP - General Family Medicine 03/29/22 [place] [phone] (Work) [facility]Y ([facility] ([place]) 05/29/19 Jairon Sofia MD [address] [place] [address] Urology 09/09/19 Lesvia Aguilar, RN Personal Advocate & Liaison (PAL) Family Medicine 06/20/21 [place] [address] [place] [address] Assigned PCP 01/01/22 [place] [address] , [facility] [address] [place] [address] Assigned Musculoskeletal Provider 03/24/23 Mariza Green, ERICK [address] [place] [address] Nurse Practitioner Nurse Practitioner 04/09/23 [place] [address] [facility] [address] [place] [address] Cardiovascular Disease 12/21/23 Gael Sullivan MD [address] [facility] [address] [place] [address] Assigned Heart and Vascular Provider 03/11/24 documented as of this encounter
--- OUTSIDE RECORDS SUMMARY | 2024-05-10 22:43 | XMS_ITS | Encounter Summary ---
Author Organization [place] Address [address] [facility] [place] [address] Care Team Providers Care Service Operator Name Role Phone [facility] [place], [facility] Unavailable + [phone] Jairon Sofia MD Unavailable +[phone] Lesvia Aguilar RN Unavailable Unavailable [facility] Unavailable +[phone] Mandi Mar MD Primary Care Provider [phone] Neela Baum MD Unavailable +[phone] Mariza Green NP Unavailable +[phone] Gael Sullivan MD Unavailable +[phone] Gael Sullivan MD Unavailable +[phone] Encounter Details Date Type Department Care Team (Latest Contact Info) Description 03/19/2024 Travel Social History Tobacco Use Types Packs/Day [...] 10:00 AM CDT Office Visit [facility] [address] [place] [phone] [place] [address] [place] [address] documented as of this encounter Visit Diagnoses Not on filedocumented in this encounter Additional Health Concerns Assessment Noted Time PHQ-9 Depression Total Score: 3 09/10/20 9:51 AM CDT documented as of this encounter Care Teams Service Operator Relationship Specialty [place] [address] [place] [address] PCP - General Family Medicine 03/29/22 [facility], [facility] ([facility] ([place]) 05/29/19 Jairon Sofia MD [address] [place] [address] Urology 09/09/19 Lesvia Aguilar, RN Personal Advocate & Liaison (PAL) Family Medicine 06/20/21 [place] [address] [place] [address] Assigned PCP 01/01/22 [place] [address] [facility], [facility] [address] [place] [address] Assigned Musculoskeletal Provider 03/24/23 [place] [address] [place] [address] Nurse Practitioner Nurse Practitioner 04/09/23 [place] [address] [address] [place], [facility] [address] [place] [address] Cardiovascular Disease 12/21/23 Gael Sullivan MD [address] [place] [address] Assigned Heart and Vascular Provider 03/11/24 documented as of this encounter
--- OUTSIDE RECORDS SUMMARY | 2024-05-10 22:43 | XMS_ITS | Encounter Summary ---
Author Organization [place] Address [address] [facility] [place] [address] Care Team Providers Care Credit Checker Name Role Phone [facility], [facility] Unavailable + [phone] Jairon Sofia MD Unavailable +[phone] Lesvia Aguilar RN Unavailable [facility]available [facility] Un[facility] +[phone] Mandi Mar MD Primary Care Provider [phone] Neela Baum MD Unavailable +[phone] Mariza Green NP Unavailable [phone] Gael Sullivan MD Unavailable +[phone] Gael Sullivan MD Unavailable +[phone] Encounter Details Date Type Department Care Team (Latest Contact Info) Description 03/30/2024 Travel Social History Tobacco Use Types Packs/Day [...] AM CDT Office Visit [facility] [address] [place] [phone] [place] [address] [place] [address] documented as of this encounter Visit Diagnoses Not on filedocumented in this encounter Additional Health Concerns Assessment Noted Time PHQ-9 Depression Total Score: 3 09/10/20 9:51 AM CDT documented as of this encounter Care Teams Credit Checker Relationship Specialty [place] [address] [place] [address] PCP - General Family Medicine 03/29/22 [facility], [facility] ([facility] ([place]) 05/29/19 Jairon Sofia MD [address] [place] [address] Urology 09/09/19 Lesvia Aguilar, RN Personal Advocate & Liaison (PAL) Family Medicine 06/20/21 [place] [address] [place] [address] Assigned PCP 01/01/22 [place] [address] [facility], [facility] [address] [place] [address] Assigned Musculoskeletal Provider 03/24/23 [place] [address] [place] [address] Nurse Practitioner Nurse Practitioner 04/09/23 [place] [address] [place], [facility] [address] [place] [address] Cardiovascular Disease 12/21/23 Gael Sullivan MD [address] [place] [address] Assigned Heart and Vascular Provider 03/11/24 documented as of this encounter
--- OUTSIDE RECORDS SUMMARY | 2024-05-10 22:44 | XMS_ITS | Encounter Summary ---
Author Organization [place] Address [address] [place] [address]. [place] [address] Care Team Providers Care Assistant Project Engineer Name Role Phone Zachariah Tamez MD Primary Care Provider [phone] Zachariah Tamez MD Unavailable [phone] [facility] Unavailable + [phone] Jairon Sofia MD Unavailable [phone] Jairon Sofia MD Unavailable [phone] Gael Sullivan MD Unavailable +[phone] Antonio Price PA-C Unavailable +[phone] Ainsley Osullivan APRN, CNP Unavailable +[phone] Lesvia Aguilar RN Unavailable Unavailable Gael Sullivan MD Unavailable +[phone] Wiliam Cao MD Unavailable +[phone] Mandi Mar MD Unavailable +[phone] Denzel Multani MD Unavailable [phone] Jak Cervantes MD Unavailable +[phone] Mandy Hooper [facility] Unavailable +[phone] Zachariah Tamez MD Unavailable +[phone] Mandi Mar MD Unavailable [phone] Mandi Mar MD Primary Care Provider +[phone] Mandy Hooper [facility] Unavailable +[phone] Miguelito Luceroemy DPM Unavailable + [phone] Mandy Hooper [facility] Unavailable +[phone] Mandi Mar MD Unavailable + [phone] Neela Baum MD Unavailable Mariza Green GRAIN CLEANER AND TRANSFER OPERATOR Unavailable +[phone] Mariza Green GRAIN CLEANER AND TRANSFER OPERATOR Unavailable +[phone] Gael Sullivan MD Unavailable +[phone] Gael Sullivan MD Unavailable + [phone] Reason for Visit * Reason Comments Medication Refill Wellness Visit Encounter Details Date Type Department Care Team (Late st Contact Info) Description 02/12/[address] [phone] [place] [address] [place] [address] Medication Refill; Wellness Visit Social History Tobacco Use Types Packs/Day Years Used Date Smoking Tobacco: Former Cigarettes 0.2 35 Smokeless Tobacco: Never Comments:quit in may 2017 Alcohol Use Standard Drinks/Week Comments Yes 1.7 (1 standard drink = 0.6 oz p ure alcohol) 2 drinks at night bindu PHQ-2 Answer Date Recorded PHQ-2 Score 0 12/03/2018 Sex and Gender Information Value Date Recorded Sex Assigned at Not on file Gender Identity Not on file Sexual Orientation Not on file documented as of this encounter Plan of Treatment Upcoming Encounters Date Type Department Care Team (Late st Contact Info) Description 06/09/2024 10:00 AM CDT Office Visit [address] [phone] [place] [address] [place] [address] documented as of this encounter Visit Diagnoses Diagnosis Atrial fibrillation, unspecified type (H) documented in this encounter Additional Health Concerns Infection Onset Date Last Indicated Resolved Time Rule Out COVID-19 08/15/2021 08/15/2021 08/15/2021 1:14 PM CDT Rule Out COVID-19 11/07/2021 11/07/2021 11/07/2021 4:12 PM ARCHITECTURAL INSPECTOR Rule Out COVID-19 11/29/2022 11/29/2022 11/29/2022 2:43 PM ARCHITECTURAL INSPECTOR Rule Out C-difficile 08/20/2023 08/20/2023 023 11:39 PM CDT Assessment Noted Time PHQ-9 Depression Total Score: 0 07/17/20 9:59 AM CDT documented as of this encounter Care Teams Assistant Project Engineer Relationship Specialty Start Date End Date Zachariah Tamez MD PCP - General Family Practice 08/28/18 03/28/22 [place] [address] [place] [address] PCP - General Family Medicine 03/29/22 [place] [address] [facility] [address] Assigned PCP 09/01/18 06/25/21 Care, [facility] 05/29/19 Jairon Sofia MD [address] [address] Urology 09/09/19 Jairon Sofia MD [address] [place] [address] Assigned Surgical Provider 09/10/20 06/18/21 Gael Sullivan MD [address] [place] [address] Assigned Heart and Vascular Provider 09/10/20 02/01/21 Antonio Price PA-C [address] [facility] [place], [place] [address] Assigned Heart and Vascular Provider 02/02/21 04/09/21 Ainsley Osullivan APRN LOCKSTITCH POCKET SETTER [address] [place] [address] Assigned Heart and Vascular Provider 05/01/21 06/18/21 Lesvia Aguilar, GEOFF Personal Advocate & Liaison (PAL) Family Medicine 06/20/21 Gael Sullivan MD [address] [place] [address] Assigned Heart and Vascular Provider 06/19/21 07/16/21 [facility] [address] [place] [address] Assigned Heart and Vascular Provider 07/17/21 08/20/21 [place] [address] [place] [address] Assigned PCP 06/26/21 11/26/21 Denzel Multani MD [address] [place] [address] Assigned Heart and Vascular Provider 08/21/21 09/24/21 Jak Cervantes MD [address] [place] [address] Assigned Heart and Vascular Provider 09/25/21 03/16/23 Mandy Hooper, [facility] [address] [facility] [address] [place], [place] [address] Pharmacist Pharmacist 11/10/21 11/10/21 [place] [address] [address] [place] [address] Assigned PCP 11/27/21 12/31/21 [place] [address] [place] [address] Assigned PCP 01/01/22 Mandy Hooper, [facility] [address] [facility] [address] [place], [place] [address] Assigned MTM Pharmacist 04/15/2208/04 Galo Lucero DPM [address] [facility] [address] [place] [address] Assigned Musculoskeletal Provider 05/13/22 03/23/23 Mandy Hooper, [facility] [address] [facility] [address] [place] [address] Assigned MTM Pharmacist 08/16/2205/11 [place] [address] [place] [address] Assigned Pain Medication Provider 02/10/23 06/22/23 [place] [id number] [place] [address] 300 [place] [address] Assigned Musculoskeletal Provider 03/24/23 [place] [address] [place] [address] Nurse Practitioner Nurse Practitioner 04/09/23 [place] [address] [place] [address] Assigned Pain Medication Provider 06/23/23 01/10/24 [place] [address] [facility] [address] [place] [address] Cardiovascular Disease 12/21/23 Gael Sullivan MD [address] [facility] [address] [place] [address] Assigned Heart and Vascular Provider 03/11/24 documented as of this encounter
--- OUTSIDE RECORDS SUMMARY | 2024-05-10 22:44 | XMS_ITS | Encounter Summary ---
Author Organization [place] Address [address] [place] [address]. [place] [address] Care Team Providers Care It Systems Administrator Name Role Phone Zachariah Tamez MD Primary Care Provider [phone] Zachariah Tamez MD Unavailable [phone] [place] Unavailable + [phone] Jairon Sofia MD Unavailable [phone] Jairon Sofia MD Unavailable +[phone] Gael Sullivan MD Unavailable +[phone] Antonio Price PA-C Unavailable +[phone] Ainsley Osullivan APRN, CNP Unavailable +[phone] Lesvia Aguilar RN Unavailable Unavailable Gael Sullivan MD Unavailable +[phone] Wiliam Cao MD Unavailable +[phone] Mandi Mar MD Unavailable +[phone] Denzel Multani MD Unavailable +[phone] Jak Cervantes MD Unavailable +[phone] Mandy Hooper [facility] Unavailable +[phone] Zachariah Tamez MD Unavailable +[phone] Mandi Mar MD Unavailable Mandi Mar MD Primary Care Provider +[phone] Mandy Hooper [facility] Unavailable +[phone] Nic Galo DPM Unavailable + [phone] Mandy Hooper [facility] Unavailable +[phone] Mandi Mar MD Unavailable + [phone] Neela Baum MD Unavailable [phone] Mariza Green LAMINATION INSPECTOR Unavailable +[phone] Mariza Green LAMINATION INSPECTOR Unavailable +[phone] Gael Sullivan MD Unavailable +[phone] Gael Sullivan MD Unavailable + [phone] Reason for Visit * Reason Comments Medication Refill Encounter Details Date Type Department Care Team (Late st Contact Info) Description 11/14/2019 Refill [facility] [id number] [place] [phone] Gem Vaughn PA-C [address] [place] [address] Medication Refill Social History Tobacco Use Types Packs/Day Years [...] encounter Miscellaneous Notes * Telephone Encounter - Doire Flowers RN - 11/14/2019 10:59 AM CST Routing refill request to provider for review/approval because: Labs out of range: CR Pt has CKD Dorie Flowers RN, BSN ODUCTS SUPERVISOR documented in this encounter Plan of Treatment Upcoming Encounters Date Type Department Care Team (Late st Contact Info) Description 06/09/2024 10:00 AM CDT Office Visit [facility] [address] [place] [address] [place] [address] [place] [address] documented as of this encounter Visit Diagnoses Diagnosis Essential hypertension Unspecified essential hypertension documented in this encounter Additional Health Concerns Infection Onset Date Last Indicated Resolved Time Rule Out COVID-19 08/15/2021 08/15/2021 08/15/2021 1:14 PM CDT Rule Out COVID-19 11/07/2021 11/07/2021 11/07/2021 4:12 PM BYPRODUCTS SUPERVISOR Rule Out COVID-19 11/29/2022 11/29/2022 11/29/2022 2:43 PM BYPRODUCTS SUPERVISOR Rule Out C-difficile 08/20/2023 08/20/2023 023 11:39 PM CDT Assessment Noted Time PHQ-9 Depression Total Score: 0 07/17/20 19 9:59 AM CDT documented as of this encounter Care Teams It Systems Administrator Relationship Specialty Start Date End Date Zachariah Tamez MD PCP - General Family Practice 08/28/18 03/28/22 [place] [address] [place] [address] PCP - General Family Medicine 03/29/22 [place] [address] [place] [address] Assigned PCP 09/01/18 06/25/21 [place] [facility] ([facility] ([place]) 05/29/19 Jairon Sofia MD [address] [place] [address] Urology 09/09/19 Jairon Sofia MD [address] [place] [address] Assigned Surgical Provider 09/10/20 06/18/21 Gael Sullivan MD [address] [place] [address] Assigned Heart and Vascular Provider 09/10/20 02/01/21 Antonio Price PA-C [address] [place] [address] Assigned Heart and Vascular Provider 02/02/21 04/09/21 Ainsley Osullivan APRN MUSIC LIBRARY ASSISTANT [address] [place] [address] Assigned Heart and Vascular Provider 05/01/21 06/18/21 Lesvia Aguilar RN Personal Advocate & Liaison (PAL) Family Medicine 06/20/21 Gael Sullivan MD [address] [place] [address] Assigned Heart and Vascular Provider 06/19/21 07/16/21 Wiliam Cao MD [facility] [address] [place] [address] Assigned Heart and Vascular Provider 07/17/21 08/20/21 [place] [address] [address] [place] [address] Assigned PCP 06/26/21 11/26/21 Denzel Multani MD [address] [place] [address] Assigned Heart and Vascular Provider 08/21/21 09/24/21 Jak Cervantes MD [address] [place] [address] Assigned Heart and Vascular Provider 09/25/21 03/16/23 Mandy Hooper, [facility] [address] [place] [id number] Pharmacist Pharmacist 11/10/21 11/10/21 [place] [address] [place] [address] Assigned PCP 11/27/21 12/31/21 [place] [address] [place] [address] Assigned PCP 01/01/22 Mandy Hooper, [facility] [address] 8934[address] Assigned MTM Pharmacist 04/15/2208/04 Galo [place] DPM [address] [facility] [address] [place], [place] [address] Assigned Musculoskeletal Provider 05/13/22 03/23/23 Mandy Hooper, [facility] 420 [facility] [address] [place], [place] [address] Assigned MTM Pharmacist 08/16/2205/11 [place] [address] [place], [place] [address] Assigned Pain Medication Provider 02/10/23 06/22/23 [place] [address] [facility] [place] [address] [place], [place] [address] Assigned Musculoskeletal Provider 03/24/23 [place] [address] [place] 447737 Nurse Practitioner Nurse Practitioner 04/09/23 [place] [address] [place] 7[address] Assigned Pain Medication Provider 06/23/23 01/10/24 [place] [address] [facility] 140 [place], [place] [address] Cardiovascular Disease 12/21/23 Gael Sullivan MD [address] [facility] [address] [place] [address] Assigned Heart and Vascular Provider 03/11/24 documented as of this encounter
--- OUTSIDE RECORDS SUMMARY | 2024-05-10 22:44 | XMS_ITS | Encounter Summary ---
Author Organization [place] Address [facility] [place] [address] Care Team Providers Care Animal Caretaker Name Role Phone [facility] Unavailable Jairon Sofia MD Unavailable [phone] Lesvia Aguilar RN Unavailable [facility]available [facility] Un[facility] [phone] Mandi Mar MD Primary Care Provider [phone] Neela Baum MD Unavailable [phone] Mariza Green NP Unavailable [phone] Gael Sullivan MD Unavailable [phone] Encounter Details Date Type Department Care Team (Latest Contact Info) Description 02/06/2024 Anticoagulation Therapy Visit [facility] [address] [place] [address] Kaur Jean-Baptiste RN Atrial fibrillation, unspecified type (H) (Primary Dx); nursing home current use of 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 with INR goal of 2.0-3.0; 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), unspecified mechanism (H) Social History Tobacco Use Types Packs/Day Years Used Date Smoking Tobacco: Former Cigarettes 0.2 35 Smokeless Tobacco: Never Comments:quit in may 2017 Alcohol Use Standard Drinks/Week Comments Yes 1.7 (1 standard drink = 0.6 oz p ure alcohol) 2 drinks at night bindu STAHL2 Answer Date Recorded PHQ-2 Score 0 09/10/2023 [...] in an abandoned building, in an overnight penitentiary, or couch-surfing.) Yes 08/20/2023 Are you worried [...] Progress Notes * Kaur Jean-Baptiste RN - 02/06/2024 3:05 PM CDT ANTICOAGULATION MANAGEMENT Raffy Montgomery 83 year old male is on warfarin with therapeutic INR result. (Goal INR 2.0-3.0) Recent labs: (last 7 days) 02/06/24 0000 INR 2.0 ASSESSMENT Source(s): Chart Review and Patient/Caregiver Call Warfarin doses taken: Less warfarin taken than planned which may be affecting INR. At last INR was mistakenly taken the booster dose every Sunday instead of just one day. Last INR was 2.3 with 36 mgweekly therefore was advised to continued with what he has been taking. Spouse thoughts to resume to previous maintenance dose which is 34 mg weekly. Diet: No new diet changes identified Medication/supplement changes: None noted New illness, injury, or hospitalization: Yes: ongoing foot pain with neuropathy problem, will be seeing provider on 02/19/24 Signs or symptoms of bleeding or clotting: No Previous result: Therapeutic last visit; previously outside of goal range Additional findings: Will continue the same dose as patient has been taking as INR in range today. Review dose day by day with spouse. PLAN Recommended plan for temporary change(s) affecting INR Dosing Instructions: Continue your current warfarin dose as patient has been taking with next INR in 2 weeks. Calendar updated. Summary As of 02/06/2024 Full warfarin instructions: 6 mg every Mon, Wed, Sun; 4 mg all other days Next INR check: 02/20/2024 Telephone call with spouse, Terri, who agrees to plan and repeated back plan correctly Patient to recheck with home meter Education provided: Please call back if any changes to your diet, medications or how you've been taking warfarin Taking warfarin: Importance of taking warfarin as instructed Plan made per [facility] anticoagulation protocol Kaur Jean-Baptiste RN Anticoagulation Clinic 02/06/2024 Anticoagulation Episode Summary Current INR goal: 2.0-3.0 TTR: 74.0% (1 y) Target end date: Indefinite Send INR reminders to: ANTICO HOME MONITORING Indications 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] nursing home current use of anticoagulant therapy (Resolved) [Z79.01] Atrial fibrillation unspecified type (H) [I48.91] 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 ([facility] ([place]) 05/29/19 Jairon Sofia MD [address] [address] Urology 09/09/19 Lesvia Aguilar RN Personal Advocate & Liaison (PAL) Family Medicine 06/20/21 [place] [address] [place] [address] Assigned PCP 01/01/22 [place] [address] [address] Assigned Musculoskeletal Provider 03/24/23 [place] [address] [place] [address] Nurse Practitioner Nurse Practitioner 04/09/23 [place] [address] [address] Cardiovascular Disease 12/21/23 documented as of this encounter
--- OUTSIDE RECORDS SUMMARY | 2024-05-10 22:44 | XMS_ITS | Encounter Summary ---
Author Organization [place] Address [address] [facility] [place] [address] Care Team Providers Care Chief Operator Synthesis Name Role Phone [facility] Unavailable [phone] Jairon Sofia MD Unavailable [phone] Lesvia Aguilar RN Unavailable [facility]available [facility] Unavailable [phone] Mandi Mar MD Primary Care Provider [phone] Neela Baum MD Unavailable [phone] Mariza Green NP Unavailable [phone] Gael Sullivan MD Unavailable [phone] Encounter Details Date Type Department Care Team (Latest Contact Info) Description 03/06/2024 Travel Social History Tobacco Use Types Packs/Day [...] Description 06/09/2024 10:00 AM CDT Office Visit [facility] [address] [place] [phone] [place] [address] [place] [address] documented as of this encounter Visit Diagnoses Not on filedocumented in this encounter Additional Health Concerns Assessment Noted Time PHQ-9 Depression Total Score: 3 09/10/20 9:51 AM CDT documented as of this encounter Care Teams Chief Operator Synthesis Relationship Specialty [place] [address] [place] [address] PCP - General Family Medicine 03/29/22 [facility] ([place]) 05/29/19 Jairon Sofia MD [address] [facility] [address] [place] [address] Urology 09/09/19 Lesvia Aguilar, RN Personal Advocate & Liaison (PAL) Family Medicine 06/20/21 [place] [address] [place] [address] Assigned PCP 01/01/22 [place] [address] [facility] [address] [place] [address] Assigned Musculoskeletal Provider 03/24/23 [place] [address] [place] [address] Nurse Practitioner Nurse Practitioner 04/09/23 [place] [address] [facility] [address] [place] [address] Cardiovascular Disease 12/21/23 documented as of this encounter
--- OUTSIDE RECORDS SUMMARY | 2024-05-10 22:44 | XMS_ITS | Encounter Summary ---
Author Organization [place] Address Count includes the [facility] [place] [address] Care Team Providers Care Surgical Manager Name Role Phone Zachariah Tamez MD Primary Care Provider [phone] [facility] Unavailable [phone] Jairon Sofia MD Unavailable [phone] Lesvia Aguilar RN Unavailable Unavailable [facility] Unavailable [phone] Denzel Multani MD Unavailable [phone] Jak Cervantes MD Unavailable [phone] Mandy Hooper [facility] Unavailable [phone] Zachariah Tamez MD Unavailable [phone] Mandi Mar MD Unavailable [phone] Mandi Mar MD Primary Care Provider [phone] Mandy Hooper [facility] Unavailable [phone] Galo Lucero DPM Unavailable [phone] Mandy Hooper [facility] Unavailable [phone] Mandi Mar MD Unavailable [phone] Neela Baum MD Unavailable [phone] Mariza Green PRIMARY CARE PROVIDER Unavailable [phone] Mariza Green PRIMARY CARE PROVIDER Unavailable + [phone] Gael Sullivan MD Unavailable [phone] Gael Sullivan MD Unavailable [phone] Reason for Visit * Reason Comments Medication Refill Encounter Details Date Type Department Care Team (Late Contact Info) Description 09/05/2021 Refill [facility] [address] [place] [phone] [place] [address] [facility] [place] [address] Medication Refill Social History Tobacco Use Types Packs/Day Years Used Date Smoking Tobacco: Former Cigarettes 0.2 35 Smokeless Tobacco: Never Comments:quit in may 2017 Alcohol Use Standard Drinks/Week Comments Yes 1.7 (1 standard drink = 0.6 oz p ure alcohol) 2 drinks at night bindu PHQ-2 Answer Date Recorded PHQ-2 Score 0 09/09/2021 Sex and Gender Information Value Date Recorded Sex Assigned at Not on file Gender Identity Not on file Sexual Orientation Not on file COVID-19 Exposure Response Date Recorded In the last month, have you been in contact with someone who was confirmed or suspected to have Coronavirus / COVID-19? No / Unsure 09/05/2021 3:48 PM CDT documented as of this encounter Miscellaneous Notes * Telephone Encounter - Lesvia Aguilar RN - 09/07/2021 10:38 AM CDT Prescription approved per [facility] Refill Protocol. Lesvia Aguilar RN documented in this encounter Plan of Treatment Upcoming Encounters Date Type Department Care Team (Late Contact Info) Description 06/09/2024 10:00 AM CDT Office Visit [facility] [address] [place] [phone] [place] [address] [facility] [place] [address] documented as of this encounter Visit Diagnoses Diagnosis Gastrointestinal hemorrhage associated with gastric ulcer documented in this encounter Additional Health Concerns Infection Onset Date Last Indicated Resolved Time Rule Out COVID-19 11/07/2021 11/07/2021 11/07/2021 4:12 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 ([place]) 05/29/19 Jairon Sofia MD [address] [address] Urology 09/09/19 Lesvia Aguilar, RN Personal Advocate & Liaison (PAL) Family Medicine 06/20/21 [place] [address] [place] [address] Assigned PCP 06/26/21 11/26/21 Denzel Multani MD [address] [place] [address] Assigned Heart and Vascular Provider 08/21/21 09/24/21 Jak Cervantes MD [address] [place] [address] Assigned Heart and Vascular Provider 09/25/21 03/16/23 Mandy Hooper, [facility] [address] [facility] [address] [place], [place] [address] Pharmacist Pharmacist 11/10/21 11/10/21 [place] [address] [place] [address] Assigned PCP 11/27/21 12/31/21 [place] [address] [place], [place] [address] Assigned PCP 01/01/22 Mandy Hooper, [facility] [address] [facility] [address] [place], [place] [address] Assigned MTM Pharmacist 04/15/2208/04 Galo Lucero DPM [address] [facility] [address] [place] [address] Assigned Musculoskeletal Provider 05/13/22 03/23/23 Mandy Hooper, [facility] [address] [place] [address] Assigned MTM Pharmacist 08/16/2205/11 [place] [address] [place] [address] Assigned Pain Medication Provider 02/10/23 06/22/23 [place] [address] [place] [address] [address] [place] [address] Assigned Musculoskeletal Provider 03/24/23 Mar[place] [address] [place] [address] [place] [address] Nurse Practitioner Nurse Practitioner 04/09/23 [place] [address] [place] [address] Assigned Pain Medication Provider 06/23/23 01/10/24 Gael [place] [address] [place] [address] [address] [place] [address] Cardiovascular Disease 12/21/23 Gael Sullivan MD [address] [facility] [address] [place], [place] [address] Assigned Heart and Vascular Provider 03/11/24 documented as of this encounter
--- OUTSIDE RECORDS SUMMARY | 2024-05-10 22:44 | XMS_ITS | Encounter Summary ---
Author Organization [place] Address [facility] [place] [address] Care Team Providers Care Media Relations Specialist Name Role Phone [facility] Unavailable Jairon Sofia MD Unavailable [phone] Lesvia Aguilar RN Unavailable [facility]available [facility] Unavailable [phone] Mandi Mar MD Primary Care Provider [phone] Neela Baum MD Unavailable [phone] Mariza Green NP Unavailable [phone] Gael Sullivan MD Unavailable [phone] Encounter Details Date Type Department Care Team (Latest Contact Info) Description 02/26/2024 Anticoagulation Therapy Visit [facility] Anticoagulation Clinic [address] [place] [address] Kaur Jean-Baptiste RN Atrial fibrillation, unspecified type (H) (Primary Dx); [facility] current use of 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 with INR goal [...] in an abandoned building, in an overnight fdc, or couch-surfing.) Yes 08/20/2023 Are you worried [...] Progress Notes * Kaur Jean-Baptiste RN - 02/26/2024 12:34 PM CDT ANTICOAGULATION MANAGEMENT Raffy Montgomery 83 year old male is on warfarin with therapeutic INR result. (Goal INR 2.0-3.0) Recent labs: (last 7 days) 02/26/24 0000 INR 2.2 ASSESSMENT Source(s): Chart Review and Patient/Caregiver Call Warfarin doses taken: Warfarin taken as instructed Diet: No new diet changes identified Medication/supplement changes: None noted New illness, injury, or hospitalization: No Signs or symptoms of bleeding or clotting: No Previous result: Therapeutic last 2(+) visits Additional findings: possible nerve block with [facility] ,nothing scheduled at this time. Advisedspouse to call and inform [facility] RN once schedule to review for procedure hold plan. Agrees with plan. PLAN Recommended plan for no diet, medication or health factor changes affecting INR Dosing Instructions: Continue your current warfarin dose with next INR in 2 weeks Summary As of 02/26/2024 Full warfarin instructions: 6 mg every Mon, Wed, Fri; 4 mg all other days Next INR check: 03/11/2024 Telephone call with spouse, Terri, who agrees to plan and repeated back plan correctly Patient to recheck with home meter Education provided: Please call back if any changes to your diet, medications or how you've been taking warfarin Plan made per [facility] anticoagulation protocol Kaur Jean-Baptiste RN Anticoagulation Clinic 02/26/2024 Anticoagulation Episode Summary Current INR goal: 2.0-3.0 TTR: 76.1% (1 y) Target end date: Indefinite Send INR reminders to: ANTICOAG HOME MONITORING Indications 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] intermediate manager current use of anticoagulant therapy (Resolved) [Z79.01] Atrial fibrillation unspecified type (H) [I48.91] [facility] current use of 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 with INR goal of 2.0-3.0 [Z79.01] 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) unspecified mechanism (H) [I63.9] Comments: INR Home Monitor with [employer] Requesting a call with INR [id number] Anticoagulation Care Providers Provider Role Specialty Phone number Mandi Mar MD Referring Family Medicine [phone] documented in this encounter Plan of Treatment Upcoming Encounters Date Type Department Care Team (Late st Contact Info) Description 06/09/2024 10:00 AM CDT Office Visit [facility] [address] [place] [address] [place] [address] [place] [address] documented as of this encounter Visit Diagnoses Diagnosis Atrial fibrillation, unspecified type (H)- Primary [facility] current use of 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 with INR goal of 2.0-3.0 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), unspecified mechanism (H) documented in this encounter Additional Health Concerns Assessment Noted Time PHQ-9 Depression Total Score: 3 09/10/20 9:51 AM CDT documented as of this encounter Care Teams Media Relations Specialist Relationship Specialty [place] [address] [place] [address] PCP - General Family Medicine 03/29/22 [facility] ([place]) 05/29/19 Jairon Sofia MD [address] [facility] [address] [place] [address] Urology 09/09/19 Lesvia Aguilar RN Personal Advocate & Liaison (PAL) Family Medicine 06/20/21 [place] [address] [place] [address] Assigned PCP 01/01/22 [place] [address] [place] , [facility] [address] [place] [address] Assigned Musculoskeletal Provider 03/24/23 [place] [address] [facility] [place] [address] Nurse Practitioner Nurse Practitioner 04/09/23 [place] [address] [address] [address] [place], [place] [address] Cardiovascular Disease 12/21/23 documented as of this encounter
--- OUTSIDE RECORDS SUMMARY | 2024-05-10 22:44 | XMS_ITS | Encounter Summary ---
Author Organization [place] Address [address] [place] [address]. [place] [address] Care Team Providers Care Law Writer Name Role Phone [facility] Unavailable [phone] Jairon Sofia MD Unavailable [phone] Lesvia Aguilar RN Unavailable Unavailable Jak Cervantes MD Unavailable [phone] Mandi Mar MD Unavailable [phone] Mandi Mar MD Primary Care Provider [phone] Mandy Hooper [facility] Unavailable [phone] Galo Lucero Unavailable [phone] Mandy Hooper [facility] Unavailable [phone] Mandi Mar MD Unavailable [phone] Neela Baum MD Unavailable [phone] Mariza Green NP Unavailable [phone] Mariza Green NP Unavailable [phone] Gael Sullivan MD Unavailable [phone] Gael Sullivan MD Unavailable [phone] Reason for Visit * Reason Onset Date Comments Refill Request 07/08/2022 furosemide (LASI X) 20 MG tablet Encounter Details Date Type Department Care Team (Late st Contact Info) Description 07/08/[address] [facility] [address] [place] [phone] [place] [address] [place] [address] Refill Request (furosemide (LASIX) 20 MG tablet) Social History Tobacco Use Types [...] Exposure Response Date Recorded In the last 10 days, have yo u been in contact with someone who was confirmed or suspected to have Coronavirus/COVID-19? No / Unsure 06/27/2022 10:37 AM CDT documented as of this encounter Miscellaneous Notes * Telephone Encounter - Lesvia Aguilar RN - 07/10/2022 8:12 AM CDT Prescription approved per [facility] Refill Protocol. Pt has scheduled appt with DIXON Aguilar RN documented in this encounter Plan of Treatment Upcoming Encounters Date Type Department Care Team (Late st Contact Info) Description 06/09/2024 10:00 AM CDT Office Visit 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 MANAGER Rule Out C-difficile 08/20/2023 08/20/2023 023 11:39 PM CDT Assessment Noted Time PHQ-9 Depression Total Score: 0 09/09/20 4:07 PM CDT documented as of this encounter Care Teams Law Writer Relationship Specialty [place] [address] [place] [address] PCP - General Family Medicine 03/29/22 [facility] 05/29/19 Jairon Sofia MD [address] [place], [place] [address] Urology 09/09/19 Lesvia Aguilar, RN Personal Advocate & Liaison (PAL) Family Medicine 06/20/21 Jak Cervantes MD [address] [place] [address] Assigned Heart and Vascular Provider 09/25/21 03/16/23 [place] [address] [place] [address] Assigned PCP 01/01/22 Mandy Hooper, [facility] [address] [place] [address] [address] [place] [address] Assigned MTM Pharmacist 04/15/22 08/04/22 Galo Lucero DPM [address] [facility] [address] [place] [address] Assigned Musculoskeletal Provider 05/13/22 03/23/23 Mandy Hooper, [facility] [address] [place] [address] [address] [place] [address] Assigned MTM Pharmacist 08/16/22 05/11/23 [place] [address] [place] [address] Assigned Pain Medication Provider 02/10/23 06/22/23 [place] [address] [facility] [address] [place] [address] Assigned Musculoskeletal Provider 03/24/23 [place] [address] [place] [address] Nurse Practitioner Nurse Practitioner 04/09/23 [place] [address] [place] [address] Assigned Pain Medication Provider 06/23/23 01/10/24 [place] [address] [facility] [address] [place], [place] [address] Cardiovascular Disease 12/21/23 Gael Sullivan MD [address] [facility] [address] [place] [address] Assigned Heart and Vascular Provider 03/11/24 documented as of this encounter
--- OUTSIDE RECORDS SUMMARY | 2024-05-10 22:44 | XMS_ITS | Encounter Summary ---
Author Organization [employer] Address Replaced by [facility] [place] [address] Care Team Providers Care Patient Attendant Name Role Phone Ratna Montalvo MD Primary Care Provider Unavailable Zachariah Tamez MD Primary Care Provider + [phone] Zacahriah Tamez MD Unavailable [phone] Zachariah Tamez MD Unavailable [phone] [facility] Unavailable + [phone] Magali Krishna RN Unavailable [phone] Jairon Sofia MD Unavailable [phone] Jairon Sofia MD Unavailable [phone] Gael Sullivan MD Unavailable [phone] Antonio Price PA-C Unavailable [phone] Ainsley Osullivan APRN DIGITAL MARKETING ANALYST Unavailable +[phone] Lesvia Augilar RN Unavailable Unavailable Gael Sullivan MD Unavailable +[phone] Wiliam Cao MD Unavailable Mandi Mar MD Unavailable [phone] Denzel Multani MD Unavailable [phone] Jak Cervantes MD Unavailable +[phone] Mandy Hooper [facility] Unavailable [phone] Zachariah Tamez MD Unavailable +[phone] Mandi Mar MD Unavailable [phone] Mandi Mar MD Primary Care Provider +[phone] Mandy Hooper [facility] Unavailable [phone] Galo LuceroM Unavailable +[phone] Mandy Hooper [facility] Unavailable [phone] Mandi Mar MD Unavailable +[phone] Neela Baum MD Unavailable [phone] Mariza Green GREEN CHAIN MARKER Unavailable + [phone] Mariza Green NP Unavailable + [phone] Gael Sullivan MD Unavailable [phone] Gael Sullivan MD Unavailable +[phone] Encounter Details Date Type Department Care Team (Late st Contact Info) Description 05/15/2008 Office Visit-[facility] [address] [phone] Roberto Estrada MD Social History Tobacco Use Types Packs/Day Years Used Date Smoking Tobacco: Former Cigarettes 0.5 35 Comments:02/28/05 less thatn 1/2 PPD - quti 12/16/03 before that 1 pk qd x 35 yrs Alcohol Use Standard Drinks/Week Comments Yes 1.7 (1 standard drink = 0.6 oz p ure alcohol) Sex and Gender Information Value Date Recorded Sex Assigned at Not on file Gender Identity Not on file Sexual Orientation Not on file documented as of this encounter Progress Notes * Roberto Estrada MD - 05/18/2008 10:31 AM CDT Progress Note Created by: Roberto Estrada M.D. DATE: 05/15/2008 [place] [id number] DATE OF : 1940 AGE: [age] years old Referring Physician: RATNA MONTALVO Referring Clinic: [facility] CURRENT DIAGNOSES 1. - CABG, V45.81 2. Shortness of Breath, 786.05 3. - CAD, 414.00 4. - Hypertension, benign, 401.1 5. Tia [transient Ischemic Attack], 435.9 6. MO-Acute Subendocardial, 410.71 7. Abnormal Ekg, 794.31 8. - Hyperlipidemia, 272.4 ALLERGIES Septra MEDICATIONS (prior to changes made today) 1. Centrum Silver Therapeutic Multiple Vitamins with Minerals, 1 p.o. q.d. 2. Lipitor 40 mg, 1 p.o.q.d. 3. Plavix 75 mg, 1 p.o. q.d. 4. Aspirin 325 mg, 1 p.o. q.d. 5. Folic Acid 0.4 mg, 1 p.o. q.d. 6. Metoprolol Tartrate 50 Mg, 1 p.o. q.d. CHIEF COMPLAINTS Check up after CABG HISTORY OF PRESENT ILLNESS I saw Raffy Montgomery after a two year and two month interval. I last saw Art in February,. At thattime we knew he had coronary artery disease, chronic smoking, hyperlipidemia, and hypertension. He had had a surveillance stress nuclear study showing an EF of 50%, a small fixed scar, and he had hada rather persistent small area of anteroapical ischemia. He has not been having angina at that time. He subsequently went about his way and this past year while in [place], [place], he had dizzy spells and shortness of breath and vague chest discomfort. He ultimately was shown to have critical three-vessel coronary disease with 90% calcific stenotic lesions of all three of his proximal coronary arteries. He went on to have four vessel bypass surgery although I do not have his specific surgical anatomy. His LV function was apparently well maintained. Subsequently also because of claudication he had three stents placed in his right iliofemoral vessels; also, I do not have his exact anatomy. Remarkably, in October he stopped smoking and subsequent to his bypass and right leg stenting he hastaken on a much healthier and appropriate lifestyle. He is eating better. He is not smoking. He is walking a mile or two a day, and he is feeling well when he does so. His profile is listed above. Today in my office his blood pressure was 158/86, with a heart rate of 70 beats per minute, weighing 215 pounds. He had no neck vein distention or bruit. His heart was regular without gallop or murmur. Lungs were clear. Sternum felt solid and well healed. Abdomen was mildly obese, soft, and nontender.Extremities showed no edema. His vein harvesting sites appeared to be healing nicely. Remarkably, Art has stopped smoking, and in retrospect he probably had more significant disease of his LAD two years ago than was apparent from either symptoms and his stress study. Happily, he was well treated in [place] and returns now taking better care of himself without tobacco in his life. I have to say I spent 10-15 minutes reinforcing the need to never go back to cigarettes. He is not short of breath. He is not having dizziness or syncope. He is not having chest pain. Sleeping is good. Bowel and urinary functions are normal. 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, PVD Past Cardiac Illnesses: S/P myocardial infarction-subendocardial, TIA, sob, ASCVD Surgeries/Procedures - General: PTCA 1984 at [facility], CABG X 4, urgently 10-25 in [place], [place], stents X 3 - RFA - done 01-24 Cardiac and Vascular Procedures: 11/26 quad bypass and right stenting of leg Cardiology Procedures-Noninvasive: CLAUDETTE 06/2003: trival MR and AR, sclerosis of descending aorta, myocardial perfusion imaging (Nuclear)August 2003, echocardiogram February 2004, adenosine Thallium February 2006 PMHx Echo Results: 03/15/04=Trace MR, trace [place], EF of 60% Left Ventricular Ejection Fraction: EF50% Nuclear Results: 02/12/06=Ad.nuc:Small distal ant.apical isch. Fixed inf.basal and basal inf.septal defect. EF of 50%, Improved from 2002 FAMILY HISTORY: Father - and [place]; Mother - alive and well and heart problems; CARDIAC RISK FACTORS Tobacco Abuse: currently smoking, 1 PP week, used to smoke, but quit, 10-25; Family History of Heart Disease: positive, strong family history of heart disease, MOM had CAD/CABG, DAD had small MO; Hyperlipidemia: positive; Hypertension: positive; Diabetes Mellitus: negative; Prior History of Heart Di sease: positive, CAD; Obesity:BMI25 (Over weight); Sedentary Life Style:negative; Age:positive SOCIAL HISTORY Alcohol Use - drinks occasionally; Smoking - used to smoke but quit and 2008; Diet - caffeine use-3-4 per day; Lifestyle - , children and drives car; Exercise - some exercise and treadmill; Seat Belt Use - never; 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 INTEGUMENTARY denies any change in hair or nails, rashes, or skin lesions. 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 grafting x 3 on 01-29-08 NEUROLOGICAL TIA x 3 PSYCHIATRIC denies any history of depression, substance abuse or change in cognitive functions. ENDOCRINE denies any history of weight change, heat/cold intolerance, polydipsia, or polyuria HEMATOLOGICAL/IMMUNOLOGIC seasonal allergies PHYSICAL EXAMINATION VITAL SIGNS: Blood Pressure: 158/86 Sitting, Left arm, regular cuff Pulse- 69.00/min. Weight- 215.70 lbs. Height- 73.50 Temperature- .00 CONSTITUTIONAL cooperative, alert and oriented,well developed, well nourished, in no acute distress. SKIN warm and dry to touch, no apparent skin lesions or masses noted HEAD normocephalic, atraumatic EYES Pupils equal and round, conjunctivae and lids unremarkable, sclera white, no xanthalasma ENT no pallor or cyanosis, dentition good NECK carotid pulses are full and equal bilaterally, JVP normal, no carotid bruit, no thyromegaly CHEST clear to auscultation, healed median sternotomy scar CARDIAC regular rhythm, S1 normal, S2 normal, No S3 or S4, Apical impulse not displaced, no murmurs, gallops or rubs detected. ABDOMEN abdomen soft, bowel sounds normoactive, no masses, no hepatosplenomegaly, non- tender, no bruits PERIPHERAL PULSES femoral pulses +1, bilateral dorsalis pedis pulse(s) diminished, severely EXTREMITIES & BACK no clubbing, cyanosis or edema NEUROLOGICAL no gross motor deficits noted, affect appropriate, oriented to time, person and place. MEDICATIONS UPDATED/STARTED TODAY: Lipitor 40 mg, 1 p.o. q.d., #30 or #100 MEDICATIONS REFILLED/STOPPED TODAY: Wellbutrin Sr 150 Mg 1 p.o. q.d. #30 or #100 Patient Terminated IMPRESSIONS/PLAN Accordingly, I think our main focus will be to have his lipid profile be at goal. His most recent profile from a month ago showed a total cholesterol of 162, LDL of 94, and HDL of 40. I doubled his Lipitor from 20 to 40 mg q.h.s. I offered him the option of switching to simvastatin if it is cheaperand better for him. He was eager to do so if that is true, and I gave him a prescription for simvastatin 40 mg q.h.s. I am happy that Art has come through this all well. He seems improved and I told him we would see him in a year with all other care and monitoring referred to you. 1. Successful multiple vessel revascularization to the heart and stenting to the right leg with improved claudication. 2. Multiple vessel coronary disease. 3. Peripheral vascular arterial disease. 4. Persistent hypertension, albeit mild. 5. Mild obesity. 6. Lipid profile is not at goal. I doubled his statin, as noted above. PLAN: As above. Roberto Estrada M.D. documented in this encounter Plan of Treatment Upcoming Encounters Date Type Department Care Team (Late st Contact Info) Description 06/09/2024 10:00 AM CDT Office Visit [facility] [id number] [place] [phone] Mandi Mar MD [address] [place] [phone] documented as of this encounter Visit Diagnoses Not on filedocumented in this encounter Additional Health Concerns Infection Onset Date Last Indicated Resolved Time Rule Out COVID-19 08/15/2021 08/15/2021 08/15/2021 1:14 PM CDT Rule Out COVID-19 11/07/2021 11/07/2021 11/07/2021 4:12 PM TEST DESKMAN Rule Out COVID-19 11/29/2022 11/29/2022 11/29/2022 2:43 PM TEST DESKMAN Rule Out C-difficile 08/20/2023 08/20/2023 023 11:39 PM CDT documented as of this encounter Care Teams Patient Attendant Relationship Specialty Start Date End Date Ratna Montalvo MD PCP - General 12/02/99 08/27/18 Zachariah Tamez MD PCP - General Family Practice 08/28/18 03/28/22 [place] [address] [place] [address] PCP - Assigned PCP 09/01/18 01/21/19 [place] [address] [place], [place] [id number] PCP - General Family Medicine 03/29/22 [place] [address] [place] [address] Assigned PCP 09/01/18 06/25/21 [facility] ([place]) 05/29/19 Magali Krishna, RN Lead Roll Weigher 06/02/19 9 Jairon Sofia MD [address] [place] [address] [place] [address] Urology 09/09/19 Jairon Sofia MD [address] [place] [address] [place] [address] Assigned Surgical Provider 09/10/20 06/18/21 Gael Sullivan MD [address] [place] [address] [place] [id number] Assigned Heart and Vascular Provider 09/10/20 02/01/21 Antonio Price PA-C [address] [facility] [place] [address] Assigned Heart and Vascular Provider 02/02/21 04/09/21 Ainsley Osullivan APRN DIGITAL MARKETING ANALYST [address] [place] [address] Assigned Heart and Vascular Provider 05/01/21 06/18/21 Lesvia Aguilar RN Personal Advocate & Liaison (PAL) Family Medicine 06/20/21 Gael Sullivan MD [address] [facility] [address] [place] [address] Assigned Heart and Vascular Provider 06/19/21 07/16/21 Wiliam Cao MD [facility] [address] [place] [place], [place] [address] Assigned Heart and Vascular Provider 07/17/21 08/20/21 [place] [address] [place] [address] Assigned PCP 06/26/21 11/26/21 Denzel Multani MD [address] [place] [address] Assigned Heart and Vascular Provider 08/21/21 09/24/21 Jak Cervantes MD [address] [place] [address] Assigned Heart and Vascular Provider 09/25/21 03/16/23 Mandy Hooper, [facility] [address] [place] [address] Pharmacist Pharmacist 11/10/21 11/10/21 [place] [address] [place] [address] Assigned PCP 11/27/21 12/31/21 [place] [address] [place] [address] Assigned PCP 01/01/22 Mandy Hooper, [facility] [address] [place] [address] Assigned MTM Pharmacist 04/15/2208/04 Galo Lucero DPM [address] [address] Assigned Musculoskeletal Provider 05/13/22 03/23/23 Mandy Hooper, [facility] [address] [place] [address] Assigned MTM Pharmacist 08/16/2205/11 [place] [address] [facility] [place] [place] [address] Assigned Pain Medication Provider 02/10/23 06/22/23 [place] [address] [facility] [address] [place] [address] Assigned Musculoskeletal Provider 03/24/23 [place] [address] [address] [place] [address] Nurse Practitioner Nurse Practitioner 04/09/23 [place] [address] [address] [place] [address] Assigned Pain Medication Provider 06/23/23 01/10/24 [place] [address] [facility] [address] [place] [id number] Cardiovascular Disease 12/21/23 Gael Sullivan MD [address] [facility] [address] [place] [address] Assigned Heart and Vascular Provider 03/11/24 documented as of this encounter
--- OUTSIDE RECORDS SUMMARY | 2024-05-10 22:44 | XMS_ITS | Encounter Summary ---
Author Organization [place] Address [facility] [place] [address] Care Team Providers Care Automated Weaver Name Role Phone Ratna Montalvo MD Primary Care Provider Unavailable Zachariah Tamez MD Primary Care Provider + [phone] Zachariah Tamez MD Unavailable [phone] Zachariah Tamez MD Unavailable [phone] [facility] Unavailable + [phone] Magali Krishna RN Unavailable +[phone] Jairon Sofia MD Unavailable [phone] Jairon Sofia MD Unavailable +[phone] Gael Sullivan MD Unavailable +[phone] Antonio Price PA-C Unavailable +[phone] Ainsley Osullivan APRN REAL ESTATE EXECUTIVE ASSISTANT Unavailable +[phone] Lesvia Aguilar RN Unavailable Unavailable Gael Sullivan MD Unavailable +[phone] Wiliam Cao MD Unavailable Mandi Mar MD Unavailable +[phone] Denzel Multani MD Unavailable +[phone] Jak Cervantes MD Unavailable +[phone] Mandy Hooper [facility] Unavailable +[phone] Zachariah Tamez MD Unavailable +[phone] Mandi Mar MD Unavailable +[phone] Mandi Mar MD Primary Care Provider +[phone] Mandy Hooper [facility] Unavailable +[phone] Galo LuceroM Unavailable +[phone] Mandy Hooper [facility] Unavailable +[phone] Mandi Mar MD Unavailable +[phone] Neela Baum MD Unavailable +[phone] Mariza Green CLINICAL TRIAL DATA MANAGER Unavailable + [phone] Mariza Green NP Unavailable + [phone] Gael Sullivan MD Unavailable +[phone] Gael Sullivan MD Unavailable +[phone] Encounter Details Date Type Department Care Team (Late st Contact Info) Description 03/05/2006 Office Visit-[facility] [address] [address] Unknown, DoctorMD Social History Tobacco Use Types Packs/Day Years Used Date Smoking Tobacco: Every Day Cigarettes 0.5 35 Comments:02/28/05 less thatn 1/2 [...] as of this encounter Progress Notes * Unknown, MD Vannessa - 03/09/2006 9:54 AM CDT Progress Note Created by: Roberto Estrada M.D. DATE: 03/05/2006 RAFFY MONTGOMERY [id number] DATE OF : 1940 AGE: [age] years old Referring Physician: RATNA MONTALVO Referring Clinic: [facility] CURRENT DIAGNOSES 1. - Hypertension, benign, 401.1 2. Shortness of Breath, 786.05 3. - CAD, 414.00 4. - Hyperlipidemia, 272.4 5. Tia [transient Ischemic Attack], 435.9 6. 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 Abnormal Ekg, 794.31 ALLERGIES NKA MEDICATIONS (including any changes made today) 1. Centrum Silver Therapeutic Multiple Vitamins with Minerals, 1 p.o. q.d. 2. Wellbutrin Sr 150 Mg,1 p.o. q.d. 3. Cozaar 50 mg, 1 p.o. q.d. 4. Lipitor 40 mg, 1 p.o. q.d. 5. Plavix 75 mg, 1 p.o. q.d. 6. Aspirin 325 mg, 1 p.o. q.d. 7. Metoprolol Tartrate 50 mg, 1/2 tab po qod 8. Folic Acid 0.4 mg, 1 p.o. q.d. CHIEF COMPLAINTS Followup of - CAD and STRESS TEST RESULTS HISTORY OF PRESENT ILLNESS I saw Raffy and his today. Art comes in complaining of the same complaints, which are diminished endurance and breathlessness with overexertion. The main function he complained about today was when he goes in to carry wood to their wood furnace he gets short of breath and has to rest. In general he is able to do his acts of daily living such as walking to the mailbox, carrying in groceries up and around the house. He does this, he claims, with no limitations. He also denies any clearcut or obvious signs of angina. He did an adenosine thallium study dated 02/12/06 in an attempt to assess whether it could be very much of a cardiac issue. The ejection fraction was 50%. He had a small fixed basilar inferior scar and no significant ischemia, and a moderate anterior zone of ischemia. The anterior zone of ischemia had previously been noted and seemed to be smaller than it used to be. He is not having much in the way of classic angina. He is now smoking, he claims, five cigarettes a day but he comes in smelling of tobacco once again.His physical exam showed a blood pressure of 150/90, heart rate was 70 beats per minute and regular. He had no neck vein distention or bruits. Heart was regular without gallop or murmur. Lungs were clear. Diminished breath sounds were noted. Abdomen was soft without organomegaly. He is mildly obese. Extremities show +1 femoral pulses and absent pedal pulses. No cyanosis was noted. I think Art has multifactorial dyspnea, particularly when he carries in wood to the furnace. These include age, obesity, deconditioning, underlying emphysema, coronary artery disease, anterior wall ischemia, albeit with a decent ejection fraction, peripheral vascular disease with a tendency to claudication, and medications. All of these things I think add up to less endurance and less energy, albeit he is able to do most things in life still. Also, he has poor vision and all of these things slow him down. I told him I did not think in view of his adenosine thallium that diving in and doing anangiogram would necessarily buy him an improved level of endurance or less dyspnea. I realize this is a clinical impression rather than locked into certainty. To hedge my bet I gave him Imdur/isosorbide 30 mg q.d. to see whether or not unloading his left ventricle and giving him a bit of a vasodilator might help. He has had orthostatic dizziness and I did not think giving him more vasodilator would help. Quite frankly, I think his dyspnea is multifactorial. 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 Fixed inf.basal and basal inf.septal defect. EF of 50%, Improved from 2002 FAMILY HISTORY: Father - MA; Mother - heart problems; CARDIAC RISK FACTORS Tobacco Abuse: currently smoking, 1 PP week; Family History of Heart Disease: positive, strong family history of heart disease, MOM had CAD/CABG, DAD had small MA; Hyperlipidemia: positive; Hypertension: positive; Diabetes Mellitus: negative; Prior History of Heart Disease: positive, CAD; Obesity:BMI25 (Over weight); Sedentary Life Style:negative; Age:positive SOCIAL HISTORY Alcohol Use - drinks occasionally; Smoking - smokes and 3-4/d; Diet - caffeine use-3-4 per day; Lifestyle - , children and drives car; Exercise - some exercise and treadmill; Seat Belt Use - never; 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 INTEGUMENTARY denies any change in hair or nails, rashes, or skin lesions. 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 ENDOCRINE denies any history of weight change, heat/cold intolerance, polydipsia, or polyuria HEMATOLOGICAL/IMMUNOLOGIC seasonal allergies PHYSICAL EXAMINATION VITAL SIGNS: Blood Pressure: 155/84 Sitting, Left arm, regular cuff Pulse- 56.00/min. Weight- 228.00 lbs. Height- 74.00 Temperature- .00 CONSTITUTIONAL cooperative, alert and oriented,well [...] normal, no carotid bruit, no thyromegaly CHEST normal symmetry, no tenderness to palpation, normal respiratory excursion, no intercostal retraction, no use of accessory muscles, clear to auscultation and percussion. CARDIAC regular rhythm, S1 normal, S2 normal, [...] oriented to time, person and place. MEDICATIONS UPDATED TODAY: IMPRESSIONS/PLAN Accordingly, if you disagree please let me know. If you think I should be more regressive from a cardiac standpoint give me a call. As it is, I felt it was more appropriate not to push the issue of improving coronary blood flow considering his multiple system disorders, severe peripheral vascular disease, emphysema, chronic smoking, previous TIAs, etc. I think he is slowed down by more issues than just his cardiac status, and although I cannot say that his heart is playing no role, I did not think it was worth an intervention at this time. Let me know if you disagree. Thanks for the privilege. I will see him again on a p.r.n. basis if you feel or if he feels that his cardiac status is worsening. Roberto Estrada M.D. documented in this encounter Plan of Treatment Upcoming Encounters Date Type Department Care Team (Late st Contact Info) Description 06/09/2024 10:00 AM CDT Office Visit [facility] [id number] [place] [phone] [place] [address] [place] [address] documented as of this encounter Visit Diagnoses Not on filedocumented in this encounter Additional Health Concerns Infection Onset Date Last Indicated Resolved Time Rule Out COVID-19 08/15/2021 08/15/2021 08/15/2021 1:14 PM CDT Rule Out COVID-19 11/07/2021 11/07/2021 11/07/2021 4:12 PM COVER MAKING MACHINE OPERATOR Rule Out COVID-19 11/29/2022 11/29/2022 11/29/2022 2:43 PM COVER MAKING MACHINE OPERATOR Rule Out C-difficile 08/20/2023 08/20/2023 023 11:39 PM CDT documented as of this encounter Care Teams Automated Weaver Relationship Specialty Start Date End Date Ratna Montalvo MD PCP - General 12/02/99 08/27/18 Zachariah Tamez MD PCP - General Family Practice 08/28/18 03/28/22 [place] [address] [place] [address] PCP - Assigned PCP 09/01/18 01/21/19 [place] [address] [place] [address] PCP - General Family Medicine 03/29/22 [place] [address] [place] [address] Assigned PCP 09/01/18 06/25/21 [facility] [place] 05/29/19 Magali Krishna RN Lead Ear Mold Laboratory Technician 06/02/19 9 Jairon Sofia MD [address] [place] [address] Urology 09/09/19 Jairon Sofia MD [address] [place] [address] Assigned Surgical Provider 09/10/20 06/18/21 Gael Sullivan MD [address] [place] [address] Assigned Heart and Vascular Provider 09/10/20 02/01/21 Antonio Price PA-C [address] [place] [address] Assigned Heart and Vascular Provider 02/02/21 04/09/21 Ainsley Osullivan APRN REAL ESTATE EXECUTIVE ASSISTANT [address] [place] [address] Assigned Heart and Vascular Provider 05/01/21 06/18/21 Lesvia Aguilar, RN Personal Advocate & Liaison (PAL) Family Medicine 06/20/21 Gael Sullivan MD [address] [place] [address] Assigned Heart and Vascular Provider 06/19/21 07/16/21 Wiliam Cao MD [facility] [address] [place], [place] [address] Assigned Heart and Vascular Provider 07/17/21 08/20/21 [place] [address] [place] [address] Assigned PCP 06/26/21 11/26/21 Denzel Multani MD [address] [place] [address] Assigned Heart and Vascular Provider 08/21/21 09/24/21 Jak Cervantes MD [address] [place] [address] Assigned Heart and Vascular Provider 09/25/21 03/16/23 Mandy Hooper, [facility] [address] [place] [address] [address] [place] [address] Pharmacist Pharmacist 11/10/21 11/10/21 [place] [address] [place] [address] Assigned PCP 11/27/21 12/31/21 [place] [address] [place] [address] Assigned PCP 01/01/22 Mandy Hooper [facility] [address] [place] [address] Assigned MTM Pharmacist 04/15/2208/04 Galo Lucero DPM [id number] [place] [address] Assigned Musculoskeletal Provider 05/13/22 03/23/23 Mandy Hooper [facility] [address] [place] [address] Assigned MTM Pharmacist 08/16/2205/11 [place] [address] [place] [address] Assigned Pain Medication Provider 02/10/23 06/22/23 [place] [address] [address] Assigned Musculoskeletal Provider 03/24/23 [place] [address] [address] [place] [address] Nurse Practitioner Nurse Practitioner 04/09/23 [place] [address] [place] [address] Assigned Pain Medication Provider 06/23/23 01/10/[address] [place] [address] [facility] [address] [place] [address] Cardiovascular Disease 12/21/23 Gael Sullivan MD [address] [facility] [address] [place] [address] Assigned Heart and Vascular Provider 03/11/24 documented as of this encounter
--- OUTSIDE RECORDS SUMMARY | 2024-05-10 22:44 | XMS_ITS | Encounter Summary ---
Author Organization [place] Address [facility]0 [facility] [address] Care Team Providers Care Bibliographic Services Specialist Name Role Phone Zachariah Tamez MD Primary Care Provider [phone] [facility] Unavailable + [phone] Jairon Sofia MD Unavailable +[phone] Lesvia Aguilar RN Unavailable [facility]available [facility] Unavailable +[phone] Dnezel Multani MD Unavailable +[phone] Jak Cervantes MD Unavailable +[phone] Mandy Hooper [facility] Unavailable +[phone] Zachariah Tamez MD Unavailable +[phone] Mandi Mar MD Unavailable +[phone] Mandi Mar MD Primary Care Provider [phone] Mandy Hooper [facility] Unavailable +[phone] Galo Lucero DPM Unavailable +[phone] Mandy Hooper [facility] Unavailable +[phone] Mandi Mar MD Unavailable +[phone] Neela Baum MD Unavailable [phone] Mariza Green FARE REGISTER REPAIRER Unavailable +[phone] Mariza Green FARE REGISTER REPAIRER Unavailable +[phone] Gael Sullivan MD Unavailable +[phone] Gael Sullivan MD Unavailable + [phone] Encounter Details Date Type Department Care Team (Late st Contact Info) Description 09/05/2021 Documentation Only INTERFACED REPORT Unknown, Provider Social History Tobacco Use Types Packs/Day Years [...] PM CDT documented as of this encounter Plan of Treatment Upcoming Encounters Date Type Department Care Team (Late st Contact Info) Description 06/09/2024 10:00 AM CDT Office Visit [facility] [address] [place] [phone] [place] [address] [place] [address] documented as of this encounter Visit Diagnoses Not on filedocumented in this encounter Additional Health Concerns Infection Onset Date Last Indicated Resolved Time Rule Out COVID-19 11/07/2021 11/07/2021 11/07/2021 4:12 PM HOUSE PAINTER HELPER Rule Out COVID-19 11/29/2022 11/29/2022 11/29/2022 2:43 PM HOUSE PAINTER HELPER Rule Out C-difficile 08/20/2023 08/20/2023 11:39 PM CDT Assessment Noted Time PHQ-9 Depression Total Score: 0 11/23/19 3:41 PM HOUSE PAINTER HELPER documented as of this encounter Care Teams Bibliographic Services Specialist Relationship Specialty Start Date End Date Zachariah Tamez MD PCP - General Family Practice 08/28/18 03/28/22 [place] [address] [place] [address] PCP - General Family Medicine 03/29/22 [facility] 05/29/19 Jairon Sofia MD [address] [place] [address] Urology 09/09/19 Lesvia Aguilar, RN Personal Advocate & Liaison (PAL) Family Medicine 06/20/21 [place] [address] [place] [address] Assigned PCP 06/26/21 11/26/21 Denzel Multani MD [address] [place] [address] Assigned Heart and Vascular Provider 08/21/21 09/24/21 Jak Cervantes MD [address] [place] [address] Assigned Heart and Vascular Provider 09/25/21 03/16/23 Mandy Hooper, [facility] [address] [facility] [address] [place] [address] Pharmacist Pharmacist 11/10/21 11/10/21 [place] [address] [place] [address] Assigned PCP 11/27/21 12/31/21 [place] [address] [place] [address] Assigned PCP 01/01/22 Mandy Hooper, [facility] [address] [facility] [address] [place] [address] Assigned MTM Pharmacist 04/15/2208/04 Galo Lucero DPM [address] [facility] [address] [place] [address] Assigned Musculoskeletal Provider 05/13/22 03/23/23 Mandy Hooper, [facility] [address] [facility] [address] [place] [address] Assigned MTM Pharmacist 08/16/2205/11 [place] [address] [place] [address] Assigned Pain Medication Provider 02/10/23 06/22/23 [place] [address] [address] [facility] [address] [place] [address] Assigned Musculoskeletal Provider 03/24/23 [place] [address] [facility] [place] [address] Nurse Practitioner Nurse Practitioner 04/09/23 [place] [address] [address] [place] [address] Assigned Pain Medication Provider 06/23/23 01/10/24 [place] [address] [facility] [address] [place] [address] Cardiovascular Disease 12/21/23 Gael Sullivan MD [address] [facility] [address] [place] [address] Assigned Heart and Vascular Provider 03/11/24 documented as of this encounter
--- OUTSIDE RECORDS SUMMARY | 2024-05-10 22:44 | XMS_ITS | Encounter Summary ---
Author Organization [place] Address [facility] [place] [address] Care Team Providers Care Shirt Line Operator Name Role Phone Zachariah Tamez MD Primary Care Provider [phone] [facility] Unavailable Jairon Sofia MD Unavailable +[phone] Lesvia Aguilar RN Unavailable Unavailable Wiliam Cao MD Unavailable Mandi Mar MD Unavailable +[phone] Denzel Multani MD Unavailable +[phone] Jak Cervantes MD Unavailable +[phone] Mandy Hooper [facility] Unavailable +[phone] Zachariah Tamez MD Unavailable +[phone] Mandi Mar MD Unavailable +[phone] Mandi Mar MD Primary Care Provider [phone] Mandy Hooper [facility] Unavailable +[phone] Galo Lucero DPM Unavailable +[phone] Mandy Hooper [facility] Unavailable +[phone] Mandi Mar MD Unavailable [phone] Neela Baum MD Unavailable Mariza Green BURGLAR ALARM INSPECTOR Unavailable [phone] Mariza Green BURGLAR ALARM INSPECTOR Unavailable + [phone] Gael Sullivan MD Unavailable +[phone] Gael Sullivan MD Unavailable + [phone] Encounter Details Date Type Department Care Team (Late st Contact Info) Description 08/15/2021 Documentation Only INTERFACED REPORT Unknown, Provider Social History Tobacco Use Types Packs/Day Years Used Date Smoking Tobacco: Former Cigarettes 0.2 35 Smokeless Tobacco: Never Comments:quit in may 2017 Alcohol Use Standard Drinks/Week Comments Yes 1.7 (1 standard drink = 0.6 oz p ure alcohol) 2 drinks at night bindu PHQ-2 Answer Date Recorded PHQ-2 Score 0 11/23/2020 Sex and Gender Information Value Date Recorded Sex Assigned at Not on file Gender Identity Not on file Sexual Orientation Not on file COVID-19 Exposure Response Date Recorded In the last month, have you been in contact with someone who was confirmed or suspected to have Coronavirus / COVID-19? No / Unsure 08/17/2021 11:27 AM CDT documented as of this encounter Plan of Treatment Upcoming Encounters Date Type Department Care Team (Late st Contact Info) Description 06/09/2024 10:00 AM CDT Office Visit [facility] [address] [place] [phone] [place] [id number] [place] [address] documented as of this encounter Visit Diagnoses Not on filedocumented in this encounter Additional Health Concerns Infection Onset Date Last Indicated Resolved Time Rule Out COVID-19 08/15/2021 08/15/2021 08/15/2021 1:14 PM CDT Rule Out COVID-19 11/07/2021 11/07/2021 11/07/2021 4:12 PM CABLE INSTALLATION TECHNICIAN Rule Out COVID-19 11/29/2022 11/29/2022 11/29/2022 2:43 PM CABLE INSTALLATION TECHNICIAN Rule Out C-difficile 08/20/2023 08/20/2023 023 11:39 PM CDT Assessment Noted Time PHQ-9 Depression Total Score: 0 11/23/19 3:41 PM CABLE INSTALLATION TECHNICIAN documented as of this encounter Care Teams Shirt Line Operator Relationship Specialty Start Date End Date Zachariah Tamez MD PCP - General Family Practice 08/28/18 03/28/22 [place] [address] [place], [place] [address] PCP - General Family Medicine 03/29/22 [facility] ([place]) 05/29/19 Jairon Sofia MD [address] [place], [place] [address] Urology 09/09/19 Lesvia Aguilar, RN Personal Advocate & Liaison (PAL) Family Medicine 06/20/21 Wiliam Cao MD [facility] [address] [place] [address] Assigned Heart and Vascular Provider 07/17/21 08/20/21 [place] [address] [place] [address] Assigned PCP 06/26/21 11/26/21 Denzel Multani MD [address] [place] [address] Assigned Heart and Vascular Provider 08/21/21 09/24/21 Jak Cervantes MD [address] [facility] [place] [address] Assigned Heart and Vascular Provider 09/25/21 03/16/23 Mandy Hooper, [facility] [address] [facility] [address] [place], [place] [address] Pharmacist Pharmacist 11/10/21 11/10/21 [place] [address] [place] [address] Assigned PCP 11/27/21 12/31/21 [place] [address] [place] [address] Assigned PCP 01/01/22 Mandy Hooper, [facility] [address] [facility] [address] [place], [place] [address] Assigned MTM Pharmacist 04/15/2208/04 Galo Lucero DPM [address] [facility] [address] [place] [address] Assigned Musculoskeletal Provider 05/13/22 03/23/23 Mandy Hooper, [facility] [address] [facility] [address] [place] [address] Assigned MTM Pharmacist 08/16/2205/11 [place] [address] [place] [address] Assigned Pain Medication Provider 02/10/23 06/22/23 [place] [address] [facility], [address] [place] [address] Assigned Musculoskeletal Provider 03/24/23 [place] [address] [address] [place] [address] Nurse Practitioner Nurse Practitioner 04/09/23 [place] [address] [address] [place] [address] Assigned Pain Medication Provider 06/23/23 01/10/24 [place] [address] [facility] [address] [place] [address] Cardiovascular Disease 12/21/23 Gael Sullivan MD [address] [facility] [address] [place] [address] Assigned Heart and Vascular Provider 03/11/24 documented as of this encounter
--- OUTSIDE RECORDS SUMMARY | 2024-05-10 22:44 | XMS_ITS | Encounter Summary ---
Author Organization [place] Address [facility] [place] [address] Care Team Providers Care User Interface Engineer Name Role Phone [facility] Unavailable Jairon Sofia MD Unavailable [phone] Lesvia Aguilar RN Unavailable Unavailable Mandi Mar MD Unavailable [phone] Mandi Mar MD Primary Care Provider [phone] Neela Baum MD Unavailable [phone] Mariza Green NP Unavailable [phone] Gael Sullivan MD Unavailable [phone] Encounter Details Date Type Department Care Team (Late st Contact Info) Description 02/06/2024 [facility] [address] [place] [address] [place] [address] [place] [address] Social History Tobacco Use Types [...] in an abandoned building, in an overnight chcf, or couch-surfing.) Yes 08/20/2023 Are you worried [...] Description 06/09/2024 10:00 AM CDT Office Visit [facility] [address] [place] [address] [place] [address] [place] [address] documented as of this encounter Procedures Procedure Name Priority Date/Time Associated Diagnosis Comments INR (EXTERNAL RESULT) Routine 02/06/2024 12:00 AM CDT documented in this encounter Results * INR (External Result) (02/06/2024 12:00 AM CDT) INR HOME MONITORING 2.0 2.000 - 3.000 [employer] 02/06/2024 Narrative [employer] - 02/06/2024 2:59 PM CDT Mandi Mar MD LAB - HIM EXTERNA L RESULT Performing Organization Address City/State/[facility] Co de Phone Number [employer] [address] [phone] documented in this encounter Visit Diagnoses Not on filedocumented in this encounter Additional Health Concerns Assessment Noted Time PHQ-9 Depression Total Score: 3 09/10/20 23 9:51 AM CDT documented as of this encounter Care Teams User Interface Engineer Relationship Specialty [place] [address] [place] [address] PCP - General Family Medicine 03/29/22 [facility] HEALTH AGENCY ([facility]), ([place]) 05/29/19 Jairon Sofia MD [address] [place] [address] Urology 09/09/19 Lesvia Aguilar, RN Personal Advocate & Liaison (PAL) Family Medicine 06/20/21 [place] [address] [place] [address] Assigned PCP 01/01/22 [place] [address] [facility] [place] [address] [place] [address] Assigned Musculoskeletal Provider 03/24/23 [place] [address] [place] [address] Nurse Practitioner Nurse Practitioner 04/09/23 [place] [address] [facility] [address] [place] [address] Cardiovascular Disease 12/21/23 documented as of this encounter
--- OUTSIDE RECORDS SUMMARY | 2024-05-10 22:44 | XMS_ITS | Encounter Summary ---
Author Organization [place] Address [facility], [facility]0 [place] [address] Care Team Providers Care Paramedic Instructor Name Role Phone Ratna Montalvo MD Primary Care Provider Unavailable Zachariah Tamez MD Primary Care Provider + [phone] Zachariah Tamez MD Unavailable [phone] Zachariah Tamez MD Unavailable [phone] [facility] Unavailable + [phone] Magali Krishna RN Unavailable [phone] Jairon Sofia MD Unavailable [phone] Jairon Sofia MD Unavailable [phone] Gael Sullivan MD Unavailable [phone] Antonio Price PA-C Unavailable [phone] Ainsley Osullivan APRN HAT MEASURER Unavailable +[phone] Lesvia Aguilar RN Unavailable Unavailable Gael Sullivan MD Unavailable +[phone] Wiliam Cao MD Unavailable Mandi Mar MD Unavailable [phone] Denzel Multani MD Unavailable [phone] Jak Cervantes MD Unavailable [phone] Mandy Hooper [facility] Unavailable +[phone] Zachariah Tamez MD Unavailable [phone] Mandi Mar MD Unavailable [phone] Mandi Mar MD Primary Care Provider [phone] Mandy Hooper [facility] Unavailable [phone] Galo LuceroM Unavailable [phone] Mandy Hooper [facility] Unavailable [phone] Mandi Mar MD Unavailable [phone] Neela Baum MD Unavailable [phone] Mariza Green PAROLE AGENT Unavailable + [phone] Mariza Green NP Unavailable [phone] Gael Sullivan MD Unavailable [phone] Gael Sullivan MD Unavailable [phone] Encounter Details Date Type Department Care Team (Late st Contact Info) Description 01/30/2006 Office Visit-[facility] [address] [address] Unknown, DoctorMD Social History Tobacco [...] Progress Notes * Unknown, MD Vannessa - 02/02/2006 9:37 AM CST Progress Note Created by: Angelica Mehta, N.P. [id number] DATE: 01/30/2006 RAFFY MONTGOMERY DATE OF : 1940 AGE: [age] years old Referring Physician: RATNA MONTALVO Referring Clinic: [facility] CURRENT DIAGNOSES 1. Shortness of Breath, 786.05 2. - CAD, 414.00 3. - Hyperlipidemia, 272.4 4. - Hypertension, benign, 401.1 5. Tia [transient Ischemic Attack], 435.9 6. 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 Abnormal Ekg, 794.31 ALLERGIES NKA MEDICATIONS (including any changes made today) 1. Lipitor 40 mg, 1 p.o. q.d. 2. Plavix 75 mg, 1 p.o. q.d. 3. Aspirin 325 mg, 1 p.o. q.d. 4. Metoprolol Tartrate 50 mg, 1/2 tab po qod 5. Folic Acid 0.4 mg, 1 p.o. q.d. 6. Centrum Silver Therapeutic Multiple Vitamins with Minerals, 1 p.o. q.d. 7. Avapro 150 mg, 1 p.o.q.d. 8. Wellbutrin Sr 150 Mg, 1 p.o. q.d. CHIEF COMPLAINTS Followup of - CAD HISTORY OF PRESENT ILLNESS I had the pleasure of following up with Mr. Montgomery today at the [facility] in regard tohis shortness of breath and coronary artery disease. He is a patient of Dr. Estrada. He has not followed up with Dr. Estrada since December 2003. Significant past medical history includes myocardial infarction in 1984. He underwent an angioplasty at [facility]. He also has had TIAs in the past, dyslipidemia, hypertension and tobacco abuse. The patient states over the last couple months he has had increasing shortness of breath with exertion. When he has this shortness of breath he has a band-like pressure wrapping around his chest. It does not radiate. The shortness of breath and pressure get better immediately with rest. It has beenstable over the last couple months, not increasing in nature. He has never had any rest episodes. He states he is able to be quite active, hauling wood into the house. However, after approximately two trips he starts to notice that he gets short of breath with this. He denies other associated chestpain, neck, arm or jaw pain. He denies diaphoresis associated with it or nausea associated with it.He states he had his cholesterol checked in November with his primary care physician. He does not remember the exact numbers and I do not have a record of them. He knows his LDL was less than 100; however, it was not less than 75 and the physician there increased his Lipitor from 20 to 40 mg, tryingto get his LDL less than 75. He will be seeing his primary care physician in February in regards to his LDL. The patient states he is also having problems with increased leg pain with exertion. He did have a peripheral arterial examination done showing a right index of 0.7 and a left of 0.8 at rest. He exercised for 5 minutes at 1.5 miles per hour to an 8% grade. He described right calf claudication at 4 minutes. After exercise, the right index was 0.3 and the left was0.6. This suggested advanced ischemia in the right leg after exercise and moderate ischemia in the left leg. This was done at [facility]. The patient states he followed up with a vascular surgeon at [facility], who stated he had peripheral arterial disease. He did not want to do surgery at this time until he wasevaluated more by a cardiac standpoint related to his history of having MIs in the past, in case hewould ever need bypass surgery, according to the patient. Again, the patient has resumed smoking at this time. He is smoking approximately 1 pack per week atthis time and his also is smoking at this time. The remainder of the patient's past medical history, review of systems and physical exam findings are noted below. 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 Past Cardiac Illnesses: S/P myocardial infarction-subendocardial, TIA, sob Infectious Diseases: 06/21 cholesterol 188, trigs 343, HDL 29, LDL Surgical Procedures: PTCA 1984 at [facility] Cardiology Procedures-Noninvasive: CLAUDETTE 06/2003: trival MR and AR, sclerosis of descending aorta, myocardial perfusion imaging (Nuclear)August 2003 Left Ventricular Ejection Fraction: 49 FAMILY HISTORY: Father - [place]; Mother - heart problems; CARDIAC RISK FACTORS Tobacco Abuse: currently smoking, 1 PP week; Family History of Heart Disease: positive, strong family history of heart disease, MOM had CAD/CABG, DAD had small [place]; Hyperlipidemia: positive; Hypertension: positive; Diabetes Mellitus: negative; Prior History of Heart Disease: positive, CAD; Obesity:BMI25 (Over weight); Sedentary Life Style:negative; Age:positive SOCIAL HISTORY Alcohol Use - drinks occasionally; Smoking - smokes and 3-4/d; Diet - caffeine use-3-4 per day; Lifestyle - , children and drives car; Exercise - some exercise and treadmill; Seat Belt Use - never; 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 INTEGUMENTARY denies any change in hair or nails, rashes, or skin lesions. EYES wears eye glasses/contact lenses, visual acuity decreased EARS, NOSE, THROAT, MOUTH partial hearing loss RESPIRATORY dyspnea with exertion CARDIOVASCULAR please review HPI ABDOMINAL positive for history of GERD, indigestion and = Rx with TUMS MUSCULOSKELETAL joint stiffness NEUROLOGICAL TIA x 3 PSYCHIATRIC denies any history of depression, substance abuse or change in cognitive functions. ENDOCRINE denies any history of weight change, heat/cold intolerance, polydipsia, or polyuria HEMATOLOGICAL/IMMUNOLOGIC seasonal allergies PHYSICAL EXAMINATION VITAL SIGNS: Blood Pressure: 160/80 Sitting, Left arm, large cuff Pulse- 72.00/min. Weight- 225.00 lbs. Height- 74.00 Temperature- .00 CONSTITUTIONAL cooperative, [...] hepatosplenomegaly, non- tender, no bruits PERIPHERAL PULSES pulses full and equal in all extremities, no bruits auscultated., bilateral dorsalis pedis pulse(s)2+ EXTREMITIES & BACK no clubbing, cyanosis or edema NEUROLOGICAL no gross motor deficits noted, affect appropriate, oriented to time, person and place. MEDICATIONS UPDATED TODAY: Lipitor 40 mg, 1 p.o. q.d., 0 Plavix 75 mg, 1 p.o. q.d., 0 Aspirin 325 mg, 1 p.o. q.d., 0 Metoprolol Tartrate 50 mg, 1/2 tab po qod, 0 Folic Acid 0.4 mg, 1 p.o. q.d., 0 MEDICATION STOPPED TODAY: Lipitor 20 mg and Toprol Xl 50 Mg IMPRESSIONS/PLAN 1.The patient has been having increasing shortness of breath with pressure associated with it with exertion. He does not have these episodes at rest. I discussed this patient with Dr. Estrada and he would like to proceed at this time with stress testing. The patient will have a nuclear stress test performed here at [facility] within the next couple days. This will be done off beta-blockers, as the patient has only been taking metoprolol, half tablet every other day. I encouraged the patient, after the stress test is performed, to try to take this medication twice daily, a half tablet, as his blood pressure is quite elevated today here in the office at 160/80. 2.Peripheral arterial disease. The patient recently had an MISSAEL done that was indicative of peripheral arterial disease. The patient is followed by a vascular surgeon regarding this. I do not have the name of this physician; however, they stated he was located at [facility]. 3.Tobacco abuse. The patient has been smoking again, 1 pack per week, approximately. I encouraged the patient once again that he needs to quit smoking. 4.Dyslipidemia. The patient's LDL was still greater than 70, per the patient, and recently had his Lipitor increased per his primary care physician. He is aiming for a goal of less than 75, per the primary care physician. We will continue to let his primary care physician manage this medication. Thank you for allowing me to care for Mr. Montgomery. He has an appointment set to follow up with Dr. Estrada in the beginning of February. TODAYS ORDERS 1. [facility] Infusion 2 days Angelica Mehta N.P. documented in this encounter Plan of Treatment Upcoming Encounters Date Type Department Care Team (Late st Contact Info) Description 06/09/2024 10:00 AM CDT Office Visit [facility] [address] [place] [address] [place] [address] [place] [address] documented as of this encounter Visit Diagnoses Not on filedocumented in this encounter Additional Health Concerns Infection Onset Date Last Indicated Resolved Time Rule Out COVID-19 08/15/2021 08/15/2021 08/15/2021 1:14 PM CDT Rule Out COVID-19 11/07/2021 11/07/2021 11/07/2021 4:12 PM SALVAGE MACHINE OPERATOR Rule Out COVID-19 11/29/2022 11/29/2022 11/29/2022 2:43 PM SALVAGE MACHINE OPERATOR Rule Out C-difficile 08/20/2023 08/20/2023 023 11:39 PM CDT documented as of this encounter Care Teams Paramedic Instructor Relationship Specialty Start Date End Date Ratna Montalvo MD PCP - General 12/02/99 08/27/18 Zachariah Tamez MD PCP - General Family Practice 08/28/18 03/28/22 [place] [address] [place] [address] PCP - Assigned PCP 09/01/18 01/21/19 [place] [address] [place] [address] PCP - General Family Medicine 03/29/22 [place] [address] [place] [address] Assigned PCP 09/01/18 06/25/21 [facility] HEALTH AGENCY ([facility]), ([place]) 05/29/19 Magali Krishna, RN Lead Netezza Developer 06/02/19 9 Jairon Sofia MD [address] [place] [address] Urology 09/09/19 Jairon Sofia MD [address] [place] [address] Assigned Surgical Provider 09/10/20 06/18/21 Gael Sullivan MD [address] [place] [address] Assigned Heart and Vascular Provider 09/10/20 02/01/21 Antonio Price PA-C [address] [place], [place] [address] Assigned Heart and Vascular Provider 02/02/21 04/09/21 Ainsley Osullivan APRN HAT MEASURER [address] [place] [address] Assigned Heart and Vascular Provider 05/01/21 06/18/21 Lesvia Aguilar, RN Personal Advocate & Liaison (PAL) Family Medicine 06/20/21 Gael Sullivan MD [address] [place] [address] Assigned Heart and Vascular Provider 06/19/21 07/16/21 Wiliam Cao MD [facility] [address] [place], [place] [address] Assigned Heart and Vascular Provider 07/17/21 08/20/21 [place] [address] [place] [address] Assigned PCP 06/26/21 11/26/21 Denzel Multani MD [address] [place] [address] Assigned Heart and Vascular Provider 08/21/21 09/24/21 Jak Cervantes MD [address] [place] [address] Assigned Heart and Vascular Provider 09/25/21 03/16/23 Mandy Hooper, [facility] [address] [address] Pharmacist Pharmacist 11/10/21 11/10/21 [place] [address] [place] [address] Assigned PCP 11/27/21 12/31/21 [place] [address] [place] [address] Assigned PCP 01/01/22 Mandy Hooper, [facility] [address] [address] Assigned MTM Pharmacist 04/15/2208/04 Galo Lucero DPM [address] [facility] [address] [place] [address] Assigned Musculoskeletal Provider 05/13/22 03/23/23 Mandy Hooper, [facility] [address] [address] Assigned MTM Pharmacist 08/16/2205/11 [place] [address] [place] [address] Assigned Pain Medication Provider 02/10/23 06/22/23 [place] [address] [facility] [address] [place] [address] Assigned Musculoskeletal Provider 03/24/23 [place] [address] [place] [address] Nurse Practitioner Nurse Practitioner 04/09/23 [place] [address] [place] [address] Assigned Pain Medication Provider 06/23/23 01/10/24 [place] [address] [facility] [address] [place] [address] Cardiovascular Disease 12/21/23 Gael Sullivan MD [address] [facility] [address] [place] [address] Assigned Heart and Vascular Provider 03/11/24 documented as of this encounter
--- OUTSIDE RECORDS SUMMARY | 2024-05-10 22:44 | XMS_ITS | Encounter Summary ---
Author Organization [place] Address [facility] [place] [address] Care Team Providers Care Automatic Dispenser Mechanic Name Role Phone [facility] Unavailable Jairon Sofia MD Unavailable [phone] Lesvia Aguilar RN Unavailable Unavailable Mandi Mar MD Unavailable [phone] Mandi Mar MD Primary Care Provider [phone] Neela Baum MD Unavailable [phone] Mariza Green NP Unavailable [phone] Gael Sullivan MD Unavailable [phone] Encounter Details Date Type Department Care Team (Late st Contact Info) Description 02/26/2024 [facility] [address] [place] [address] [place] [address] [place] [address] Social History Tobacco Use Types [...] Description 06/09/2024 10:00 AM CDT Office Visit [facility] [address] [place] [address] [place] [address] [place] [address] documented as of this encounter Procedures Procedure Name Priority Date/Time Associated Diagnosis Comments INR (EXTERNAL RESULT) Routine 02/26/2024 12:00 AM CDT documented in this encounter Results * INR (External Result) (02/26/2024 12:00 AM CDT) INR HOME MONITORING 2.2 2.000 - 3.000 [employer] 02/26/2024 Narrative [employer] - 02/26/2024 12:23 PM CDT Mandi Mar MD LAB - HIM EXTERNA L RESULT Performing Organization Address City/State/[facility] Co de Phone Number [employer] [address] [phone] documented in this encounter Visit Diagnoses Not on filedocumented in this encounter Additional Health Concerns Assessment Noted Time PHQ-9 Depression Total Score: 3 09/10/20 23 9:51 AM CDT documented as of this encounter Care Teams Automatic Dispenser Mechanic Relationship Specialty [place] [address] [place] [address] PCP - General Family Medicine 03/29/22 [facility]ENCY ([facility] ([place]) 05/29/19 Jairon Sofia MD [address] [place] [address] Urology 09/09/19 Lesvia Aguilar, RN Personal Advocate & Liaison (PAL) Family Medicine 06/20/21 [place] [address] [place] [address] Assigned PCP 01/01/22 [place] [address] [facility] [address] [place] [address] Assigned Musculoskeletal Provider 03/24/23 [place] [address] [place] [address] Nurse Practitioner Nurse Practitioner 04/09/23 [place] [address] [facility] [address] [place] [address] Cardiovascular Disease 12/21/23 documented as of this encounter
--- OUTSIDE RECORDS SUMMARY | 2024-05-10 22:44 | XMS_ITS | Encounter Summary ---
Author Organization [place] Address [address] [place] [address]. [place] [address] Care Team Providers Care Manager Trainee Name Role Phone Zachariah Tamez MD Primary Care Provider [phone] Zachariah Tamez MD Unavailable [phone] [facility] Unavailable + [phone] Jairon Sofia MD Unavailable [phone] Jairon Sofia MD Unavailable [phone] Gael Sullivan MD Unavailable +[phone] Antonio Price PA-C Unavailable +[phone] Ainsley Osullivan APRN, CNP Unavailable +[phone] Lesvia Aguilar RN Unavailable Unavailable Gael Sullivan MD Unavailable +[phone] Wiliam Cao MD Unavailable +[phone] Mandi Mar MD Unavailable +[phone] Denzel Multani MD Unavailable [phone] Jak Cervantes MD Unavailable +[phone] Mandy Hooper [facility] Unavailable +[phone] Zachariah Tamez MD Unavailable [phone] Mandi Mar MD Unavailable Mandi Mar MD Primary Care Provider [phone] Mandy Hooper [facility] Unavailable +[phone] Galo Lucero DPM Unavailable + [phone] Mandy Hooper [facility] Unavailable +[phone] Mandi Mar MD Unavailable + [phone] Neela Baum MD Unavailable +[phone] Mariza Green CYBER DEFENSE FORENSICS ANALYST Unavailable +[phone] Mariza Green CYBER DEFENSE FORENSICS ANALYST Unavailable +[phone] Gael Sullivan MD Unavailable +[phone] Gael Sullivan MD Unavailable + [phone] Encounter Details Date Type Department Care Team (Late st Contact Info) Description 02/01/2021 Documentation Only INTERFACED REPORT Unknown, Provider Social [...] have Coronavirus / COVID-19? No / Unsure 01/04/2021 10:30 AM DEFLECTOR OPERATOR documented as of this encounter Plan of Treatment Upcoming Encounters Date Type Department Care Team (Late st Contact Info) Description 06/09/2024 10:00 AM CDT Office Visit [facility] [address] [place] [address] [place] [address] [place] [address] documented as of this encounter Visit Diagnoses Not on filedocumented in this encounter Additional Health Concerns Infection Onset Date Last Indicated Resolved Time Rule Out COVID-19 08/15/2021 08/15/2021 08/15/2021 1:14 PM CDT Rule Out COVID-19 11/07/2021 11/07/2021 11/07/2021 4:12 PM DEFLECTOR OPERATOR Rule Out COVID-19 11/29/2022 11/29/2022 11/29/2022 2:43 PM DEFLECTOR OPERATOR Rule Out C-difficile 08/20/2023 08/20/2023 023 11:39 PM CDT Assessment Noted Time PHQ-9 Depression Total Score: 0 11/23/19 3:41 PM DEFLECTOR OPERATOR documented as of this encounter Care Teams Manager Trainee Relationship Specialty Start Date End Date Zachariah Tamez MD PCP - General Family Practice 08/28/18 03/28/22 [place] [address] [place] [address] PCP - General Family Medicine 03/29/22 [place] [address] [place] [address] Assigned PCP 09/01/18 06/25/21 [facility] ([facility] ([place] 05/29/19 Jairon Sofai MD [address] [place] [place] [address] Urology 09/09/19 Jairon Sofia MD [address] [place] [address] Assigned Surgical Provider 09/10/20 06/18/21 Gael Sullivan MD [address] [place] [place], [place] [address] Assigned Heart and Vascular Provider 09/10/20 02/01/21 Antonio Price PA-C [address] [facility] [place], [place] [address] Assigned Heart and Vascular Provider 02/02/21 04/09/21 Ainsley Osullivan APRN SP[employer] [address] [place], [place] [address] Assigned Heart and Vascular Provider 05/01/21 06/18/21 Lesvia Aguilar RN Personal Advocate & Liaison (PAL) Family Medicine 06/20/21 Gael Slulivan MD [address] [place], [place] [address] Assigned Heart and Vascular Provider 06/19/21 07/16/21 Wiliam Cao MD [facility] [address] [place], [place] [address] Assigned Heart and Vascular Provider 07/17/21 08/20/21 [place] [address] [place] [address] Assigned PCP 06/26/21 11/26/21 Denzel Multani MD [address] [place], [place] [address] Assigned Heart and Vascular Provider 08/21/21 09/24/21 Jak Cervantes MD [address] [address] Assigned Heart and Vascular Provider 09/25/21 03/16/23 Mandy Hooper, [facility] [address] [address] Pharmacist Pharmacist 11/10/21 11/10/21 [place] [address] [place] [address] Assigned PCP 11/27/21 12/31/21 [place] [address] [place] [address] Assigned PCP 01/01/22 Mandy Hooper, [facility] [address] 2225[address] Assigned MTM Pharmacist 04/15/2208/04 Galo Lucero DPM [address] [facility] [address] [place] [address] Assigned Musculoskeletal Provider 05/13/22 03/23/23 Mandy Hooper, [facility] [address] [address] Assigned MTM Pharmacist 08/16/2205/11 [place] [address] [place] [address] Assigned Pain Medication Provider 02/10/23 06/22/23 [place] [address] [facility] [address] [place] [address] Assigned Musculoskeletal Provider 03/24/23 [place] [address] [place] [address] Nurse Practitioner Nurse Practitioner 04/09/23 [place] [address] [address] [place] [address] Assigned Pain Medication Provider 06/23/23 01/10/24 [place] [address] [facility] [place] [address] [place] [address] Cardiovascular Disease 12/21/23 Gael Sullivan MD [address] [facility] [address] [place] [address] Assigned Heart and Vascular Provider 03/11/24 documented as of this encounter
--- OUTSIDE RECORDS SUMMARY | 2024-05-10 22:44 | XMS_ITS | Encounter Summary ---
Author Organization [place] Address [facility] [place] [address] Care Team Providers Care Mail Delivery Supervisor Name Role Phone [facility] Unavailable Jairon Sofia MD Unavailable [phone] Lesiva Aguilar RN Unavailable Unavailable ElistMandi love MD Unavailable [phone] Mandi Mar MD Primary Care Provider [phone] Neela Baum MD Unavailable [phone] Mariza Green ASSOCIATE DIRECTOR REGULATORY AFFAIRS Unavailable [phone] Mariza Green NP Unavailable [phone] Gael Sullivan MD Unavailable +[phone] Gael Sullivan MD Unavailable [phone] Encounter Details Date Type Department Care Team (Late st Contact Info) Description 10/29/2023 [facility] [address] [place] [address] [place] [address] [place] [address] Social History Tobacco Use Types [...] in an abandoned building, in an overnight [place] [facility], or couch-surfing.) Yes 08/20/2023 Are you worried [...] Encounter - Page, Lesvia Rodriguez RN - 10/30/2023 7:27 AM CST Spoke with pt's - pt is not progressing due to pain. They are still waiting on sign off [facility] for state approval. [place] once his pain is better controlled he would do better with PT. FYI to PCP Lesvia Aguilar, RN SECONDARY PROFESSIONAL * Telephone Encounter - Kamran Kim - 10/29/2023 4:27 PM CST Reason for Call: PT and home care Detailed comments: early discharge for PT and home care Phone Number Patient can be reached at: Other phone number: [phone] Best Time: anytime Can we leave a detailed message on this number? YES Call taken on 10/29/2023 at 4:27 PM by KAMRAN KIM SECONDARY PROFESSIONAL documented in this encounter Plan of Treatment Upcoming Encounters Date Type Department Care Team (Late st Contact Info) Description 06/09/2024 10:00 AM CDT Office Visit [facility] [address] [place] [phone] [place] [address] [place] [address] documented as of this encounter Visit Diagnoses Not on filedocumented in this encounter Additional Health Concerns Assessment Noted Time PHQ-9 Depression Total Score: 3 09/10/20 23 9:51 AM CDT documented as of this encounter Care Teams Mail Delivery Supervisor Relationship Specialty [place] [address] [place] [address] PCP - General Family Medicine 03/29/22 [facility] ([place]) 05/29/19 Jairon Sofia MD [address] [address] [place] [address] Urology 09/09/19 Lesvia Aguilar, RN Personal Advocate & Liaison (PAL) Family Medicine 06/20/21 [place] [address] [place] [address] Assigned PCP 01/01/22 [place] [address] [facility] [address] [place] [address] Assigned Musculoskeletal Provider 03/24/23 [place] [address] [place] [address] Nurse Practitioner Nurse Practitioner 04/09/23 [place] [address] [place] [address] Assigned Pain Medication Provider 06/23/23 01/10/24 Gael [place] MD [id number] [place] [address] [address] [place] [address] Cardiovascular Disease 12/21/23 Gael Sullivan MD [address] [facility] [address] [place], [place] [address] Assigned Heart and Vascular Provider 03/11/24 documented as of this encounter
--- OUTSIDE RECORDS SUMMARY | 2024-05-10 22:44 | XMS_ITS | Encounter Summary ---
Author Organization [place] Address [address] [place] [address] Care Team Providers Care Senior Living Advisor Name Role Phone [facility], [facility] Unavailable Jairon Sofia MD Unavailable [phone] Lesvia Aguilar RN Unavailable [facility]available [facility] Unavailable [phone] Mandi Mar MD Primary Care Provider [phone] Neela Baum MD Unavailable [phone] Mariza Green NP Unavailable [phone] Gael Sullivan MD Unavailable [phone] Reason for Referral * Diagnostic Imaging Ultrasound (Routine) - Pending Review Specialty Diagnoses / Procedures Referred By Contac t Referred To Contact Radiology. Diagnoses Palpitations S/P CABG (coronary artery bypass graft) COATS (dyspnea on exertion) PAD (peripheral artery disease) (H24) Procedures US MISSAEL Doppler No Exercise (MISSAEL at rest) Gael Sullivan MD [address] [facility] [address] [place] [address] Referral ID Status Reason Start Date Expiration Date V isits Requested Visits Authorized [id number] Pending Review 03/06/2024 03/06/2025 1 1 * Consultation (Routine) - Pending Review Specialty Diagnoses / Procedures [facility] To Contact Cardiovascular Disease Diagnoses Palpitations S/P CABG (coronary artery bypass graft) COATS (dyspnea on exertion) Gael Sullivan MD [address] [place] [address] Referral ID Status Reason Start Date Expiration Date V isits Requested Visits Authorized [id number] Pending Review 03/06/2024 03/06/2025 1 1 Question Answer Follow-up with: PAULINE Scheduling Instructions: [employer] will call you to coordinate your care as prescribed by your provider. If you have concerns about scheduling, please call [phone]. Comments [employer] will call you to coordinate your care as prescribed by your provider. If you have concerns about scheduling, please call [phone]. * Diagnostic Imaging NM (Routine) - Authorized Specialty Diagnoses / Procedures [facility]erred To Contact Radiology. Diagnoses S/P CABG (coronary artery bypass graft) COATS (dyspnea on exertion) Procedures NM Lexiscan stress test (nuc card) Gael Sullivan MD [address] [place] [address] Nuclear Medicine [address] [place] [address] Referral ID Status Reason Start Date Expiration Date V isits Requested Visits Authorized [id number] Authorized 03/06/2024 03/06/2025 5 5 * CV Testing (Routine) - Closed Specialty Diagnoses / Procedures [facility] Referred To Contact Cardiology Diagnoses S/P [...] ZZHC STATISTIC IV PUSH SINGLE INITIAL SUBSTANCE TX ECHO MYOCARD BX TX INJECTION, PERFLUTREN LIPID MICROSPHERES, PER ML TX TTE W/DOPPLER, COMPLETE TX IV PUSH SINGLE, INITIAL SUBSTANCE TX TTE W/DOPPLER, COMPLETE TX TTE W/DOPPLER, COMPLETE HC US GUIDE FOR PERICARDIOCENTESIS HC ECHO MYOCARD BX HC IV PUSH SINGLE, INITIAL SUBSTANCE HC STATISTIC IV PUSH SINGLE INITIAL SUBSTANCE HC ECHO COMPLETE W DOPPLER W CONTRAST HC ECHO COMPLETE W DOPPLER W/O CONTRAST Gael Sullivan MD [address] [place] [address] Cardiac Services [address] [place] [address] Referral ID Status Reason Start Date Expiration Date Visits Re quested Visits Authorized [id number] Closed 03/06/2024 03/06/2025 1 1 Reason for Visit * Reason Comments New Patient re establish Encounter Details Date Type Department Care Team (Late st Contact Info) Description 03/06/2024 1:15 PM CDT Office Visit [facility] [address] [place] [phone] Gael Sullivan MD [address] [place] [id number] Palpitations (Primary Dx); S/P CABG (coronary artery bypass graft); COATS (dyspnea on exertion); PAD (peripheral artery disease) (H24) Social History Tobacco Use Types Packs/Day Years [...] Sign Reading Time Taken Comments Blood Pressure 119/61 03/06/2024 1:08 PM CDT Pulse 96 03/06/2024 1:08 PM CDT Temperature - - Respiratory Rate - - Oxygen Saturation 93% 03/06/2024 1:08 PM CDT Inhaled Oxygen Concentration - - Weight 95.3 kg (210 lb) 03/06/2024 1:08 PM CDT p t reported Height 188 cm (6' 2) 03/06/2024 1:08 PM CDT Body Mass Index 26.96 03/06/2024 1:08 PM CDT documented in this encounter Progress Notes * Gael Sullivan MD - 03/06/2024 1:15 PM CDT Cardiology Consultation Raffy Montgomery Date of : 1940 Age: [age] year old Date of Visit 03/06/2024 Reason for consult: Reestablish care Assessment and Plan: Coronary artery disease status post CABG 2007 . Intermittent dyspnea per Plan repeat echocardiogram and nuclear stress testing Left lower extremity pain Known occluded left SFA, repeat MISSAEL no exercise. AAA, endovascular repair 2020 No endoleak on follow-up Paroxysmal atrial fibrillation with history of stroke Currently anticoagulated 45 minutes spent today in review of past medical record, discussion with patient and postvisit charting This note was transcribed using electronic voice recognition software, typographical errors may be present. Chief Complaint: New Patient ( re establish) History of Present Illness: This patient is a very pleasant 83 year old male that I have previously seen a number of years ago for history of CABG and paroxysmal atrial fibrillation and history of stroke. He also has peripheralarterial disease and large AAA that was treated with endovascular repair 2020. He did well from the endovascular surgical standpoint. He has left leg pain. 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 His states that they are evaluating him at [facility] pain clinic for injection to help with his neuropathy. He has not had cardiovascular follow up or testing in a number of years. He is largely wheelchair-bound. ECG in the office today has frequent PVCs. Physical Exam: Vitals: BP 119/61 (BP Location: Right arm, Patient Position: Sitting, Cuff Size: Adult Regular) Pulse 96 Ht 1.88 m (6' 2) Wt 95.3 kg (210 lb) SpO2 93% BMI 26.96 kg/m?? Constitutional: cooperative;in no acute distress Skin: warm and dry to the touch, no apparent skin lesions or masses noted Head: normocephalic, no masses or lesions Eyes: disconjugate gaze, legally blind ENT: no pallor or cyanosis Neck: JVP normal Chest: clear to auscultation Cardiac: regular rhythm bradycardic grade 1;RUSB Abdomen: BS normoactive Neurological: affect appropriate left sided weakness Past Medical History: I have reviewed this patient's past medical history Past Medical History: Diagnosis Date Blind CAD (coronary artery disease) CVA (cerebral infarction) 2010 Led to blindness and occured when briefly off anticoagulation for a procedure. Essential hypertension, benign GI bleed Colon biopsy site bleeding Fall 2010. At time was being seen by CRS. 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 Mumps Spider veins Transient cerebral ischemia 1991 Past Surgical History: I have reviewed this patient's past surgical history Past Surgical History: Procedure Laterality Date CV LOWER EXTREMITY ANGIOGRAM LEFT Left 10/02/2019 Procedure: Lower Extremity Angiogram Left possible PCI; Surgeon: Case Higgins MD; Location: [facility] CARDIAC MANPOWER DEVELOPMENT MANAGER ENDOSCOPIC ULTRASOUND UPPER GASTROINTESTINAL TRACT (GI) N/A 05/30/2021 Procedure: ENDOSCOPIC ULTRASOUND, ESOPHAGOSCOPY / UPPER GASTROINTESTINAL TRACT; Surgeon: Pawan Akhtar MD; Location: OR ENDOVASCULAR REPAIR ANEURYSM ABDOMINAL AORTA N/A 08/31/2021 Procedure: ENDOVASCULAR ABDOMINAL AORTIC ANEURYSM REPAIR; Surgeon: Jak Cervantes; Location: OR ESOPHAGOSCOPY, GASTROSCOPY, DUODENOSCOPY (EGD), COMBINED 03/05/2012 Procedure:COMBINED ESOPHAGOSCOPY, GASTROSCOPY, DUODENOSCOPY (EGD); ESOPHAGOSCOPY, GASTROSCOPY, DUODENOSCOPY (EGD) Rm [id number]; Surgeon:JAIRON HARDING; Location: GI HC OPEN HEARTH HELPER EXTREMITY ARTERY, EACH ADDITIONAL 1984 IR ABDOMINAL ENDOVASCULAR STENT GRAFT 08/31/2021 TESTICLE SURGERY TONSILLECTOMY VASECTOMY ZZC NORRIS W/O FACETEC FORAMOT/DSKC 11/20 VRT SEG, LUMBAR 1996 Social History: I have reviewed this patient's social history Social History Tobacco Use Smoking status: Former Current packs/day: 0.20 Average packs/day: 0.2 packs/day for 35.0 years (7.0 ttl pk-yrs) Types: Cigarettes Smokeless tobacco: Never Tobacco comments: quit in may 2017 Substance Use Topics Alcohol use: Yes Alcohol/week: 1.7 standard drinks of alcohol Comment: 2 drinks at night bindu Family History: I have reviewed this patient's family history Family History Problem Relation Age of Onset Diabetes Mother Cancer No family hx of Heart Disease No family hx of Gastrointestinal Disease No family hx of Also, no family history of bleeding problems. Allergies: Allergies Allergen Reactions Septra [Bactrim] Unknown Medications: I have reviewed this patient's current medications Current Outpatient Medications Medication Sig Dispense Refill atorvastatin (LIPITOR) 80 MG tablet Take 1 tablet (80 mg) by mouth daily 90 tablet 3 baclofen (LIORESAL) 10 MG tablet TAKE 1/2 (ONE-HALF) TABLET BY MOUTH AT BEDTIME *DO NOT STOP ABRUPTLY DUE TO RISK OF WITHDRAWL* 45 tablet 3 buPROPion (WELLBUTRIN XL) 150 MG 24 hr tablet 1 tab every am 90 tablet 1 cilostazol (PLETAL) 100 MG tablet Take 1 tablet (100 mg) by mouth 2 times daily 180 tablet 3 citalopram (CELEXA) 20 MG tablet TAKE 1/2 (ONE-HALF) TABLET BY MOUTH THREE TIMES A WEEK 18 tablet 1 diltiazem ER COATED BEADS (CARDIZEM CD/CARTIA XT) 120 MG 24 hr capsule Take 1 capsule (120 mg) by mouth daily 90 capsule 3 docusate sodium (COLACE) 100 MG capsule Take 1 capsule (100 mg) by mouth 2 times daily 180 capsule 3 ferrous sulfate (FEROSUL) 325 (65 Fe) MG tablet Take 1 tablet (325 mg) by mouth daily (with breakfast) 90 tablet 0 furosemide (LASIX) 20 MG tablet Take 1 tablet (20 mg) by mouth daily TAKE 1 TABLET BY MOUTH ONCE DAILY NEEDED FOR LEG SWELLING 90 tablet 3 losartan (COZAAR) 25 MG tablet Take 1 tablet (25 mg) by mouth daily 90 tablet 3 Melatonin 10 MG TABS tablet Take 10 mg by mouth At Bedtime Multiple Vitamins-Minerals (MULTIVITAMIN ADULT PO) Take 1 tablet by mouth daily order for DME 1: Gradient Compression Wraps; 2: cast Boots; 3; BLE 20-30 mm Hg compression stockings; knee high; 4: Velcro compression garments BLE's 1 each 0 pantoprazole (PROTONIX) 40 MG EC tablet Take 1 tablet (40 mg) by mouth daily 90 tablet 1 pregabalin (LYRICA) 50 MG capsule Take 1 capsule (50 mg) by mouth 2 times daily 180 capsule 1 tamsulosin (FLOMAX) 0.4 MG capsule Take 1 capsule by mouth once daily 90 capsule 2 Thiamine HCl (VITAMIN B-1) 250 MG TABS Take 1 each by mouth daily 30 tablet 0 warfarin ANTICOAGULANT (COUMADIN) 4 MG tablet 6 mg ( 4 mg x 1.5 tabs) every Angus, Sun, Sun then 4mg ( 4 mg x 1 tab ) all other days of the weekAdjust as directed by INR clinic. 122 tablet 1 Review of Systems: Review of Systems: Skin: not assessed Eyes: Positive for visual blurring ENT: not assessed Respiratory: Positive for wheezing Cardiovascular: edema;Positive for Gastroenterology: not assessed Genitourinary: not assessed Musculoskeletal: not assessed Neurologic: not assessed Psychiatric: not assessed Heme/Lymph/Imm: not assessed Endocrine: not assessed Data: All available laboratory data reviewed Lab Results Component Value Date CHOL 128 08/31/2021 CHOL 125 04/08/2020 Lab Results Component Value Date HDL 50 08/31/2021 HDL 53 04/08/2020 Lab Results Component Value Date LDL 60 08/31/2021 LDL 58 04/08/2020 Lab Results Component Value Date TRIG 90 08/31/2021 TRIG 71 04/08/2020 Lab Results Component Value Date CHOLHDLRATIO 3.4 05/26/2015 TSH Date Value Ref Range Status 10/09/2019 6.24 (H) 0.40 - 4.00 mU/L Final Last Basic Metabolic Panel: Lab Results Component Value Date NA 138 09/10/2023 NA 137 06/24/2020 Lab Results Component Value Date POTASSIUM 4.0 09/10/2023 POTASSIUM 3.8 11/30/2022 POTASSIUM 4.2 06/24/2020 Lab Results Component Value Date CHLORIDE 100 09/10/2023 CHLORIDE 105 11/30/2022 CHLORIDE 103 06/24/2020 Lab Results Component Value Date BLESSING 9.4 09/10/2023 BLESSING 8.6 06/24/2020 Lab Results Component Value Date CO2 29 09/10/2023 CO2 27 11/30/2022 CO2 28 06/24/2020 Lab Results Component Value Date BUN 13.5 09/10/2023 BUN 12 11/30/2022 BUN 11 06/24/2020 Lab Results Component Value Date CR 1.34 09/10/2023 CR 1.31 06/24/2020 Lab Results Component Value Date GLC 105 09/10/2023 GLC 108 11/30/2022 GLC 153 06/24/2020 Lab Results Component Value Date WBC 8.2 09/10/2023 WBC 9.3 06/24/2020 Lab Results Component Value Date RBC 4.47 09/10/2023 RBC 4.75 06/24/2020 Lab Results Component Value Date HGB 13.2 09/10/2023 HGB 13.1 06/24/2020 Lab Results Component Value Date HCT 41.4 09/10/2023 HCT 40.7 06/24/2020 Lab Results Component Value Date MCV 93 09/10/2023 MCV 86 06/24/2020 Lab Results Component Value Date MCH 29.5 09/10/2023 MCH 27.6 06/24/2020 Lab Results Component Value Date MCHC 31.9 09/10/2023 MCHC 32.2 06/24/2020 Lab Results Component Value Date RDW 14.9 09/10/2023 RDW 15.9 06/24/2020 Lab Results Component Value Date PLT 179 09/10/2023 PLT 26 stenosis.and right internal iliac arteryAnd the right5 06/24/2020 documented in this encounter Plan of Treatment Upcoming Encounters Date Type Department Care Team (Late st Contact Info) Description 06/09/2024 10:00 AM CDT Office Visit [facility] [id number] [place] [phone] Mandi Mar MD [address] [place] [id number] Scheduled Referrals Name Type Priority Associated Diagnoses Orde r Schedule Follow-Up with Cardiology Referral Routine: Next available opening Palpitations S/P CABG (coronary artery bypass graft) COATS (dyspnea on exertion) Expected: 05/06/2024 (Approximate), Expires: 03/06/2025 documented as of this encounter Procedures Procedure Name Priority Date/Time Associated Diagnosis Comments EKG 12-LEAD COMPLETE W/READ - CLINICS Routine 03/06/2024 Palpitations documented in this encounter Results * ECHO COMPLETE (03/27/2024 11:41 AM CDT) LVEF 55-60% CARDIOLOGY RESULTS Anatomical Region Laterality Modality Echocardiography 03/27/2024 10:3 5 AM CDT Narrative 03/27/2024 3:[address] [facility] [id number]^BLANCA^GAEL^JULIETTE [facility] Echocardiography Laboratory [address] [place] [address] Name: RAFFY MONTGOMERY : 1940 Study Date: 03/27/2024 10:35 AM Age: 83 yrs Gender: Male Patient Location: [facility] Reason For Study: S/P CABG (coronary artery [...] Procedure Note Denzel Gunderson MD - 03/27/2024 [id number]^BLANCA^GAEL^JULIETTE [facility] Echocardiography Laboratory [address] [place] [id number] Name: RAFFY MONTGOMERY : 1940 Study Date: 03/27/2024 10:35 AM Age: 83 yrs Gender: Male Patient Location: [facility] Reason For Study: S/P CABG (coronary artery [...] Critical ASHU GONZALEZ MD Gael Sullivan MD [facility] ORDERABLES * NM Lexiscan stress test (nuc [...] rest on 03/19/2024. Nuclear Study Quality The fiberglass quality technician images demonstrate subdiaphragmatic radiotracer activity [...] wall motion is normal. Gael Sullivan MD [facility] [place] ORDERABLES * EKG 12-lead complete w/read - Clinics (performed today) (03/06/2024) Gael Sullivan MD ECG ORDERABLES documented in this encounter Visit Diagnoses Diagnosis Palpitations- Primary 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 COATS (dyspnea on exertion) Other dyspnea and respiratory abnormality PAD (peripheral artery disease) (H24) Unspecified disorders of arteries and arterioles 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 COAST (dyspnea on exertion) Other dyspnea and respiratory abnormality 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 COATS (dyspnea on exertion) Other dyspnea and respiratory abnormality Palpitations 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 COATS (dyspnea on exertion) Other dyspnea and respiratory abnormality PAD (peripheral artery disease) (H24) Unspecified disorders of arteries and arterioles documented in this encounter Additional Health Concerns Assessment Noted Time PHQ-9 Depression Total Score: 3 09/10/20 23 9:51 AM CDT documented as of this encounter Care Teams Senior Living Advisor Relationship Specialty [place] [address] [place] [address] PCP - General Family Medicine 03/29/22 [facility]), (DE) 05/29/19 Jairon Sofia MD [address] [address] [place] [address] Urology 09/09/19 Lesvia Aguilar, RN Personal Advocate & Liaison (PAL) Family Medicine 06/20/21 [place] [address] [place] [address] Assigned PCP 01/01/22 [place] [address] [facility] [address] [place] [address] Assigned Musculoskeletal Provider 03/24/23 [place] [address] [place] [address] Nurse Practitioner Nurse Practitioner 04/09/23 Gael Sullivan [place] [id number] [place] [address] [address] [place] [address] Cardiovascular Disease 12/21/23 documented as of this encounter
--- OUTSIDE RECORDS SUMMARY | 2024-05-10 22:45 | XMS_ITS | Encounter Summary ---
Author Organization [place] Address [facility] [place] [address] Care Team Providers Care Television Program Director Name Role Phone Navarro Trejo MD Primary Care Provider Unavailable Zachariah Tamez MD Primary Care Provider + [phone] Zachariah Tamez MD Unavailable [phone] Zachariah Tamez MD Unavailable +[phone] [facility] Unavailable + [phone] Magali Krishna RN Unavailable +[phone] Jairon Sofia MD Unavailable [phone] Jairon Sofia MD Unavailable +[phone] Gael Sullivan MD Unavailable +[phone] Antonio Price PA-C Unavailable +[phone] Ainsley Osullivan APRN LABOR RELATIONS ANALYST Unavailable +[phone] Lesvia Aguilar RN Unavailable Unavailable Gael Sullivan MD Unavailable +[phone] Wiliam Cao MD Unavailable +[phone] Mandi Mar MD Unavailable +[phone] Denzel Multani MD Unavailable +[phone] Jak Cervantes MD Unavailable +[phone] Mandy Hooper [facility] Unavailable +[phone] Zachariah Tamez MD Unavailable +[phone] Mandi Mar MD Unavailable +[phone] Mandi Mar MD Primary Care Provider +[phone] Rufus Mandy Lee [facility] Unavailable +[phone] Galo LuceroM Unavailable +[phone] Mandy Hooper [facility] Unavailable +[phone] Mandi Mar MD Unavailable +[phone] Neela Baum MD Unavailable +[phone] Mariza Green [employer] Unavailable + [phone] Mariza Green NP Unavailable + [phone] Gael Sullivan MD Unavailable +[phone] Gael Sullivan MD Unavailable +[phone] Encounter Details Date Type Department Care Team (Late st Contact Info) Description 08/13/2003 Office Visit-[facility] [address] [address] Unknown, DoctorMD Social History Tobacco Use Types Packs/Day Years Used Date Smoking Tobacco: Every Day Cigarettes 1 35 Alcohol Use Standard Drinks/Week Comments Yes 1.7 (1 standard drink = 0.6 oz p ure alcohol) Sex and Gender Information Value Date Recorded Sex Assigned at Not on file Gender Identity Not on file Sexual Orientation Not on file documented as of this encounter Progress Notes * Unknown, MD Vannessa - 09/19/2004 3:45 PM CST Progress Note Created by: Roberto Estrada M.D. DATE: 08/13/2003 RAFFY MONTGOMERY [id number] DATE OF : 1940 AGE: [age] years old Referring Physician: LACY BHAT CURRENT DIAGNOSES 1. - CAD, 414.00 2. - Hyperlipidemia, 272.4 3. - Tobacco excess, 305.1 4. Tia [transient Ischemic Attack], 435.9 5. 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 - Hypertension, benign, 401.1 7. Shortness of Breath, 786.05 ALLERGIES NKA MEDICATIONS 1. Altace 5 mg, 1 p.o. q.d. 2. Lipitor 10 mg, 1 p.o. q.d. 3. Wellbutrin SR 150 mg, 2 p.o. q.d. CHIEF COMPLAINTS had a stroke june 22 HISTORY OF PRESENT ILLNESS Raffy Montgomery, aged 63, came in for follow up of history of documented coronary artery disease. He most recently was admitted to [facility] with a transient ischemic attack. He had transient hemiparesis, which resolved, fortunately, and he subsequently returned for ongoing care. He has history of having had remotely angioplasty in 1994 at [facility] and I saw him in the mid-s when he had chest pain evaluation. At that time he smoked one pack per day. He currently stateshe smokes one pack per week, although he smells of cigarettes this morning. He denies chest pain, palpitations, dizziness or syncope. He states he is able to do his job and work full-time, and do yard work without limitations. He had an echocardiogram at [facility], which led to a transesophageal echocardiogram. 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 His triglycerides were 343, total cholesterol was 188, HDL was low at 29, and LDL was not listed. Accordingly, Art continues to not take the best care of himself. I spent a good 25 minutes talking to him about stopping smoking. I added Altace to his program for NIC inhibitor benefits, and I told him that we should shoot for NCEP guidelines or better in terms of his lipid profile. We should not give up until his cholesterol is well below 150 with LDL well below 100 and triglycerides below 100 as well. All of this, however, will be dust in the wind if he does not give up cigarettes. His physical examination showed a trim adult male. He had no neck vein distention, mass, bruit or goiter. His heart was regular without gallop or murmur. Lungs clear. Abdomen normal. Extremities showed +1 pedal pulses and no edema. PAST HISTORY Past Medical Illnesses: hypertension, Hx of tobacco usage, hyperlipidemia Past Cardiac Illnesses: S/P myocardial infarction-subendocardial, TIA Infectious Diseases: 06/21 cholesterol 188, trigs 343, HDL 29, LDL Surgical Procedures: PTCA 1984 at [facility] Cardiology Procedures-Noninvasive: CLAUDETTE 06/2003: trival MR and AR, sclerosis of descending aorta FAMILY HISTORY: Father - AR; Mother - heart problems; CARDIAC RISK FACTORS Tobacco Abuse: currently smoking, 1 PP week; Family History of Heart Disease: positive, strong family history of heart disease, MOM had CAD/CABG, DAD had small AR; Hyperlipidemia: positive; Hypertension: negative; Diabetes Mellitus: negative; Prior History of Heart Disease: positive, CAD; Obesity:negative; Sedentary Life Style:negative; Age:positive SOCIAL HISTORY Alcohol Use - wine 3-4 per day and mixed drinks 3-4 per day; Smoking - smokes cigarettes, 4 per dayand was 1.5 packs per day before stroke; Diet - regular diet without modifications and caffeine use-3-4 per day; Lifestyle - drives car, does housework, does shopping alone, does yard work, doing well and happy and stable; Exercise - no regular exercise; 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 EYES denies diplopia, history of glaucoma or visual field defects. EARS, NOSE, THROAT, MOUTH denies any hearing loss, epistaxis, hoarseness or difficulty speaking. RESPIRATORY denies dyspnea, cough, wheezing or hemoptysis. CARDIOVASCULAR negative for palpitations, chest pain, orthopnea, PND, peripheral edema, syncope or claudication. ABDOMINAL denies ulcer disease, hematochezia or melena. MUSCULOSKELETAL chronic back pain, leg cramping NEUROLOGICAL TIA symptoms, recurrent strokes PSYCHIATRIC denies any history of depression, substance abuse or change in cognitive functions. ENDOCRINE denies any history of weight change, heat/cold intolerance, polydipsia, or polyuria HEMATOLOGICAL/IMMUNOLOGIC denies any food allergies, seasonal allergies, bleeding disorders. PHYSICAL EXAMINATION VITAL SIGNS: Blood Pressure: 140/80 Sitting, Left arm, regular cuff Pulse- 80.00/min. Weight- 204.80 lbs. Height- .00 Temperature- .00 CONSTITUTIONAL cooperative, alert and oriented,well developed, well nourished, in no acute distress. SKIN warm and dry to touch, no apparent skin lesions, or masses noted., smells of smoke/tobacco (07-22) HEAD normocephalic, atraumatic EYES Pupils equal and [...] time, person and place. MEDICATIONS UPDATED TODAY: Altace 5 mg, 1 p.o. q.d., #30 or #100 Cardizem CD 180 mg, 1 p.o. q.d., 0 Lipitor 10 mg, 1 p.o. q.d., 0 Wellbutrin SR 150 mg, 2 p.o. q.d., 0 IMPRESSIONS/PLAN Accordingly, Raffy has coronary disease. He is asymptomatic. He had a recent transient ischemic attack, from which he was fortunate to not have long-term residual problems. He needs an aggressive attack on his risk factors including smoking, hyperlipidemia, controlled hypertension and a healthier lifestyle. He sheepishly suggested he will do all these things, and only time will tell. I personally am not going to hold my breath but we can make every effort to get him better. Accordingly, I set him up for a stress test/nuclear test, to do this in surveillance follow up, Leyda will share the results with you. I hope you continue to work on his stopping smoking. TODAYS ORDERS 1. Return Visit 3 months 2. Treadmill Nuclear Study 1 month Roberto Estrada M.D. <B><FONT FACE=System> <FONT COLOR=#[id number]><FONT POINT=10> Document electronically signed by : Roberto Estrada M.D. Date : 09/19/2004 Time : 3:45:46 PM documented in this encounter Plan of Treatment Upcoming Encounters Date Type Department Care Team (Late st Contact Info) Description 06/09/2024 10:00 AM CDT Office Visit [facility] [address] [place] [address] [place] [address] [place] [address] documented as of this encounter Visit Diagnoses Not on filedocumented in this encounter Additional Health Concerns Infection Onset Date Last Indicated Resolved Time Rule Out COVID-19 08/15/2021 08/15/2021 08/15/2021 1:14 PM CDT Rule Out COVID-19 11/07/2021 11/07/2021 11/07/2021 4:12 PM CARDIAC CATH TECH Rule Out COVID-19 11/29/2022 11/29/2022 11/29/2022 2:43 PM CARDIAC CATH TECH Rule Out C-difficile 08/20/2023 08/20/2023 023 11:39 PM CDT documented as of this encounter Care Teams Television Program Director Relationship Specialty Start Date End Date Navarro Trejo MD PCP - General 12/02/99 08/27/18 Zachariah Tamez MD PCP - General Family Practice 08/28/18 03/28/22 [place] [address] [place] [address] PCP - Assigned PCP 09/01/18 01/21/19 [place] [address] [place] [address] PCP - General Family Medicine 03/29/22 [place] [address] [place] [address] Assigned PCP 09/01/18 06/25/21 [facility] ([place]) 05/29/19 Magali Krishna RN Lead Radio Station Manager 06/02/19 9 Jairon Sofia MD [address] [place], [place] [address] Urology 09/09/19 Jairon Sofia MD [address] [place], [place] [address] Assigned Surgical Provider 09/10/20 06/18/21 Gael Sullivan MD [address] [place] [address] Assigned Heart and Vascular Provider 09/10/20 02/01/21 Antonio Price PA-C [address] [place] [address] Assigned Heart and Vascular Provider 02/02/21 04/09/21 Ainsley Osullivan APRN LABOR RELATIONS ANALYST [address] [place] [address] Assigned Heart and Vascular Provider 05/01/21 06/18/21 Lesvia Aguilar RN Personal Advocate & Liaison (PAL) Family Medicine 06/20/21 Gael Sullivan MD [address] [place] [address] Assigned Heart and Vascular Provider 06/19/21 07/16/21 Wiliam Cao MD [facility] [address] [place] [address] Assigned Heart and Vascular Provider 07/17/21 08/20/21 [place] [address] [place] [address] Assigned PCP 06/26/21 11/26/21 Denzel Multani MD [address] [place], [place] [address] Assigned Heart and Vascular Provider 08/21/21 09/24/21 Jak Cervantes MD [address] [place] [address] Assigned Heart and Vascular Provider 09/25/21 03/16/23 aMndy Hooper, [facility] [address] [place], [place] [address] Pharmacist Pharmacist 11/10/21 11/10/21 [place] [address] [place] [address] Assigned PCP 11/27/21 12/31/21 [place] [address] [place] [address] Assigned PCP 01/01/22 Mandy Hooper, [facility] [address] [address] Assigned MTM Pharmacist 04/15/2208/04 Galo Lucero DPM [address] [facility] [address] [place], [place] [address] Assigned Musculoskeletal Provider 05/13/22 03/23/23 Mandy Hooper, [facility] [address] [facility] [address] [place] [address] Assigned MTM Pharmacist 08/16/2205/11 [place] [address] [place] [address] Assigned Pain Medication Provider 02/10/23 06/22/23 [place] [address] [facility], [facility] [address] [place] [address] Assigned Musculoskeletal Provider 03/24/23 Mariza Green, ERICK [address] [place], [place] [address] Nurse Practitioner Nurse Practitioner 04/09/23 Mariza Green, ERICK [address] [place], [place] [address] Assigned Pain Medication Provider 06/23/23 01/10/24 [place] [address] [facility], [facility] [address] [place], [place] [address] Cardiovascular Disease 12/21/23 Gael Sullivan MD [address] [facility] [address] [place] [address] Assigned Heart and Vascular Provider 03/11/24 documented as of this encounter
--- OUTSIDE RECORDS SUMMARY | 2024-05-10 22:45 | XMS_ITS | Encounter Summary ---
Author Organization [place] Address [facility] [place] [address] Care Team Providers Care Reimbursement Spec Name Role Phone Ratna Montalvo MD Primary Care Provider Unavailable Zachariah Tamez MD Primary Care Provider + [phone] Zachariah Tamez MD Unavailable +[phone] Zachariah Tamez MD Unavailable +[phone] [facility] Unavailable + [phone] Magali Krishna RN Unavailable [phone] Jairon Sofia MD Unavailable [phone] Jairon Sofia MD Unavailable +[phone] Gael Sullivan MD Unavailable +[phone] Antonio Price PA-C Unavailable +[phone] Ainsley Osullivan APRN SADDLE TREE STITCHER Unavailable +[phone] Lesvia Aguilar RN Unavailable Unavailable Gael Sullivan MD Unavailable +[phone] Wiliam Cao MD Unavailable Mandi Mar MD Unavailable +[phone] Denzel Multani MD Unavailable +[phone] Jak Cervantes MD Unavailable +[phone] Mandy Hooper [facility] Unavailable +[phone] Zachariah Tamez MD Unavailable +[phone] Mandi Mar MD Unavailable +[phone] Mandi Mar MD Primary Care Provider +[phone] Mandy Hooper [facility] Unavailable +[phone] Galo LuceroM Unavailable +[phone] Mandy Hooper [facility] Unavailable +[phone] Mandi Mar MD Unavailable +[phone] Neela Baum MD Unavailable [phone] Mariza Green OIL DERRICK OPERATOR Unavailable + [phone] Mariza Green NP Unavailable + [phone] Gael Sullivan MD Unavailable +[phone] Gael Sullivan MD Unavailable +[phone] Encounter Details Date Type Department Care Team (Late st Contact Info) Description 01/04/2004 Office Visit-[facility] [address] [address] Unknown, DoctorMD Social History Tobacco Use Types Packs/Day Years Used Date Smoking Tobacco: Former Cigarettes 1 35 Comments:quti 12/16/03 before that 1 pk qd x [...] Note Created by: Roberto Estrada M.D. DATE: 01/04/2004 RAFFY MONTGOMERY [id number] DATE OF : 1940 AGE: [age] years old Referring Physician: RATNA MONTALVO Referring Clinic: [facility] CURRENT DIAGNOSES 1. - CAD, 414.00 2. - Hyperlipidemia, 272.4 3. - Tobacco excess, 305.1 4. Tia [transient Ischemic Attack], 435.9 5. DC-Acute Subendocardial, 410.71 6. - Hypertension, benign, 401.1 7. Shortness of Breath, 786.05 ALLERGIES NKA MEDICATIONS 1. Centrum Silver Therapeutic Multiple Vitamins with Minerals, 1 p.o. q.d. 2. Lipitor 20 mg, 1 p.o.q.d. 3. Avapro 150 mg, 1 p.o. q.d. 4. Toprol Xl 50 Mg, 1/2 tab q.d. 5. Wellbutrin Sr 150 Mg, 1 p.o. q.d. CHIEF COMPLAINTS follow-up, med check HISTORY OF PRESENT ILLNESS Michael Montgomery, age 63, came boasting of the fact that he had stopped smoking. Indeed, this is the first time I can remember when he did not smell of tobacco. He says his is still smoking some, but he is committed to getting a new mobile home and having it be smoke free. He says he feels better, and he is happy he stopped smoking. I am sure he is always at risk of returning, but I give him credit for having turned the corner. His medicines are as listed above, and his cough has resolved since you switched him from ramipril to Avapro. He is also on Lipitor and Toprol as noted. He has stayed on the Wellbutrin, feeling it might help him stay away from cigarettes. PAST HISTORY Past Medical Illnesses: hypertension, Hx of tobacco usage, hyperlipidemia, amputations Past Cardiac Illnesses: S/P myocardial infarction-subendocardial, TIA, sob Infectious Diseases: 06/21 cholesterol 188, trigs 343, HDL 29, LDL Surgical Procedures: PTCA 1984 at [facility] Cardiology Procedures-Noninvasive: CLAUDETTE 06/2003: trival MR and AR, sclerosis of descending aorta, myocardial perfusion imaging (Nuclear)August 2003 Left Ventricular Ejection Fraction: 49% FAMILY HISTORY: Father - DC; Mother - heart problems; SOCIAL HISTORY Alcohol Use - drinks occasionally; Smoking - 1 PACK A WEEK; Diet - regular diet; Lifestyle - , children and drives car; Exercise - no regular exercise; Seat Belt Use - never; 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 INTEGUMENTARY denies any change in hair or nails, rashes, or skin lesions. EYES wears eye glasses/contact lenses EARS, NOSE, THROAT, MOUTH partial hearing loss RESPIRATORY cough, = resolved when the NIC was stopped., - 2003 CARDIOVASCULAR please review HPI ABDOMINAL positive for history of GERD, indigestion and = Rx with TUMS MUSCULOSKELETAL joint stiffness NEUROLOGICAL TIA x 3 PSYCHIATRIC denies any history of depression, substance abuse or change in cognitive functions. ENDOCRINE denies any history of weight change, heat/cold intolerance, polydipsia, or polyuria HEMATOLOGICAL/IMMUNOLOGIC seasonal allergies PHYSICAL EXAMINATION VITAL SIGNS: Blood Pressure: 149/86 Sitting, Left arm, large cuff Pulse- 54.00/min. Weight- 214.00 lbs. Height- 74.00 Temperature- .00 CONSTITUTIONAL cooperative, [...] time, person and place. MEDICATIONS UPDATED TODAY: Avapro 150 mg, 1 p.o. q.d., #30 or #100 Toprol Xl 50 Mg, 1/2 tab q.d., #30 or #100 Wellbutrin Sr 150 Mg, 1 p.o. q.d., #30 or #100 MEDICATION STOPPED TODAY: Altace 5 Mg IMPRESSIONS/PLAN He has a history of documented coronary disease. He has had both previous TIAs and subendocardial myocardial infarcts. Ejection fraction has been mildly diminished with his most recent study being dated August,, when he had anteroseptal ischemia of a mild to moderate degree, and an ejection fraction of 49%. At that time we had agreed to treat him medically, and he was happy with that. In the interim nothing has changed. He feels well, he looks well, he stopped smoking, and he is willing to continue to follow this medically. It always worries me with anterior ischemia, but I give him credit for stopping smoking. Accordingly, I made no changes. I asked to see him again in six months. I asked him to stay on the current program. Should he show signs of instability or angina or deterioration in his status, let me know. We should shoot for NCEP guidelines with regards to lipid management, normotension, etc. If you have any questions, give me a call. Roberto Estrada M.D. <B><FONT FACE=System> <FONT COLOR=#[id number]><FONT POINT=10> Document electronically signed by : Roberto Estrada M.D. Date : 09/19/2004 Time : 3:45:46 PM Electronically signed by [facility], [employer] Data Conversion at 04/03/2014 4:01 AM CDT documented in this encounter Plan of Treatment Upcoming Encounters Date Type Department Care Team (Late st Contact Info) Description 06/09/2024 10:00 AM CDT Office Visit [address] [address] Mandi Mar MD [address] [place] [address] documented as of this encounter Visit Diagnoses Not on filedocumented in this encounter Additional Health Concerns Infection Onset Date Last Indicated Resolved Time Rule Out COVID-19 08/15/2021 08/15/2021 08/15/2021 1:14 PM CDT Rule Out COVID-19 11/07/2021 11/07/2021 11/07/2021 4:12 PM TECHNICAL SALES REPRESENTATIVES Rule Out COVID-19 11/29/2022 11/29/2022 11/29/2022 2:43 PM TECHNICAL SALES REPRESENTATIVES Rule Out C-difficile 08/20/2023 08/20/2023 023 11:39 PM CDT documented as of this encounter Care Teams Reimbursement Spec Relationship Specialty Start Date End Date Ratna Montalvo MD PCP - General 12/02/99 08/27/18 Zachariah Tamez MD PCP - General Family Practice 08/28/18 03/28/22 [place] [address] [place] [address] PCP - Assigned PCP 09/01/18 01/21/19 [place] [address] [place] [address] PCP - General Family Medicine 03/29/22 [place] [address] [place] [address] Assigned PCP 09/01/18 06/25/21 [facility] ([facility] ([place]) 05/29/19 Magali Krishna, RN Lead Commercial Baking Teacher 06/02/19 9 Jairon Sofia MD [address] [place] [address] Urology 09/09/19 Jairon Sofia MD [address] [place] [address] Assigned Surgical Provider 09/10/20 06/18/21 Gael Sullivan MD [address] [place] [id number] Assigned Heart and Vascular Provider 09/10/20 02/01/21 Antonio Price PA-C [address] [place] [address] Assigned Heart and Vascular Provider 02/02/21 04/09/21 Ainsley Osullivan APRN SADDLE TREE STITCHER [address] [place] [address] Assigned Heart and Vascular Provider 05/01/21 06/18/21 Lesvia Aguilar RN Personal Advocate & Liaison (PAL) Family Medicine 06/20/21 Gael Sullivan MD [address] [place] [address] Assigned Heart and Vascular Provider 06/19/21 07/16/21 Wiliam Cao MD [facility] [address] [place], [place] [address] Assigned Heart and Vascular Provider 07/17/21 08/20/21 [place] [address] [place] [address] Assigned PCP 06/26/21 11/26/21 Denzel Multani MD [address] [place] [address] Assigned Heart and Vascular Provider 08/21/21 09/24/21 Jak Cervantes MD [address] [place] [address] Assigned Heart and Vascular Provider 09/25/21 03/16/23 Mandy Hooper, [facility] [address] [place] [address] [address] [place], [place] [address] Pharmacist Pharmacist 11/10/21 11/10/21 [place] [address] [address] [place], [place] [address] Assigned PCP 11/27/21 12/31/21 [place] [address] [place] [address] Assigned PCP 01/01/22 Mandy Hooper, [facility] [address] [place] [address] Assigned MTM Pharmacist 04/15/2208/04 Galo Lucero DPM [address] [address] Assigned Musculoskeletal Provider 05/13/22 03/23/23 Mandy Hooper, [facility] [address] [place] [address] Assigned MTM Pharmacist 08/16/2205/11 [place] [address] [place] [address] Assigned Pain Medication Provider 02/10/23 06/22/23 [place] [address] [address] [address] [place] [address] Assigned Musculoskeletal Provider 03/24/23 [place] [address] [place] [address] Nurse Practitioner Nurse Practitioner 04/09/23 [place] [address] [address] [place] [address] Assigned Pain Medication Provider 06/23/23 01/10/24 [place] [address] [facility] [address] [place] [address] Cardiovascular Disease 12/21/23 Gael Sullivan MD [address] [facility] [address] [place] [address] Assigned Heart and Vascular Provider 03/11/24 documented as of this encounter
== END 2024-04-25 10:40 | disposition home or self-care (01) ==
LOC: AMB 05-10 22:38
PROVIDERS: Visit Provider Emergency Medicine Emergency Medical Services
DX: S79.911A Unspecified injury of right hip, initial encounter (principal); S09.90XA Unspecified injury of head, initial encounter; W18.30XA Fall on same level, unspecified, initial encounter; Y92.003 Bedroom of unspecified non-institutional (private) residence as the place of occurrence of the external cause
CPT/HCPCS: A0425; A0427

== ENCOUNTER 2025-09-26 15:38 | Outpatient (CLI) | payer MEDICARE, OTHER, SELFPAY | END 2025-09-26 15:39 | disposition home or self-care (01) | PROVIDERS: Visit Provider Internal Medicine | DX: S29.9XXA Unspecified injury of thorax, initial encounter (principal); W19.XXXA Unspecified fall, initial encounter; Y92.009 Unspecified place in unspecified non-institutional (private) residence as the place of occurrence of the external cause | CPT/HCPCS: A0425; A0427 ==